=== PATIENT | female | born 1985 | race Caucasian/White ===

== ENCOUNTER 2018-01-05 03:53 | Emergency (ER) | payer SELFPAY ==
--- NOTE | 2018-01-05 04:07 | EDPHYS ---
Physician Documentation [facility] Name: Clementina Hartley Age: 32 yrs Sex: Female : 1985 Arrival Date: 01/05/2018 Time: 03:55 Bed 14 Private MD: ED Physician Jayant Wu HPI: 01/05 04:09 This 32 yrs old Female presents to ER via Unassigned with complaints of Foot gs Pain. 04:09 The patient presents with pain. The complaints affect the right foot. Onset: The gs symptoms/episode began/occurred yesterday. Modifying factors: the symptoms are aggravated by weight bearing, movement. Associated signs and symptoms: Pertinent negatives: calf tenderness, fever, numbness, tingling, warmth, weakness. Severity of symptoms: At their worst the symptoms were severe, in the emergency department the symptoms are unchanged. The patient has not experienced similar symptoms in the past. Historical: - Allergies: 04:11 Iodine; tl2 04:11 Latex, Natural Rubber; tl2 04:11 PENICILLINS; tl2 - Home Meds: 04:11 claritan [Active]; tl2 - PMHx: 04:11 allergies; tl2 - Immunization history:: Adult Immunizations up to date. - Social history:: Smoking status: Patient uses tobacco products, denies chronic smoking, but will smoke occasionally. ROS: 04:16 All other systems are negative. gs Exam: 04:16 Head/Face: Normocephalic, atraumatic. Eyes: Pupils equal round and reactive to light, gs extra-ocular motions intact. Lids and lashes normal. Conjunctiva and sclera are non-icteric and not injected. Cornea within normal limits. Periorbital areas with no swelling, redness, or edema. ENT: Nares patent. No nasal discharge, no septal abnormalities noted. Tympanic membranes are normal and external auditory canals are clear. Oropharynx with no redness, swelling, or masses, exudates, or evidence of obstruction, uvula midline. Mucous membranes moist. Neck: Trachea midline, no thyromegaly or masses palpated, and no cervical lymphadenopathy. Supple, full range of motion without nuchal rigidity, or vertebral point tenderness. No Meningismus. Cardiovascular: Regular rate and rhythm with a normal S1 and S2. No gallops, murmurs, or rubs. Normal PMI, no JVD. No pulse deficits. Respiratory: Lungs have equal breath sounds bilaterally, clear to auscultation and percussion. No rales, rhonchi or wheezes noted. No increased work of breathing, no retractions or nasal flaring. Abdomen/GI: Soft, non-tender, with normal bowel sounds. No distension or tympany. No guarding or rebound. No evidence of tenderness throughout. Skin: Warm, dry with normal turgor. Normal color with no rashes, no lesions, and no evidence of cellulitis. Neuro: Awake and alert, GCS 15, oriented to person, place, time, and situation. Cranial nerves II-XII grossly intact. Motor strength 5/5 in all extremities. Sensory grossly intact. Cerebellar exam normal. Normal gait. 04:16 Constitutional: The patient appears alert, awake. 04:16 Musculoskeletal/extremity: Extremities: noted in the arch of right foot and heel of right foot: tenderness, ROM: no acute changes, Circulation is intact in all extremities. Vital Signs: 04:11 BP 185 / 115; Pulse 114; Resp 18; Temp 97.8; Pulse Ox 99% on R/A; Weight 104.33 kg; tl2 Height 5 ft. 5 in. (165.10 cm); Pain 10/10; 04:11 Body Mass Index 38.27 (104.33 kg, 165.10 cm) tl2 MDM: 04:05 Patient medically screened. gs 04:16 Differential diagnosis: sprain, arthritis, plantar fasciitis. Data reviewed: vital gs signs, nurses notes. Counseling: I had a detailed discussion with the patient and/or guardian regarding: the presence of at least one elevated blood pressure reading (>120/80) during this emergency department visit. Special discussion: I have referred the patient to see his PCP for further evaluation of high blood pressure. Administered Medications: No medications were administered Disposition: 01/05/18 04:06 Discharged to Home. Impression: Plantar fascial fibromatosis. - Condition is Stable. - Discharge Instructions: Plantar Fasciitis, Managing Your High Blood Pressure. - Medication Reconciliation Form, Thank You Letter, Antibiotic Education, Prescription Opioid Use form. - Follow up: Eran Mendez DPM; When: 2 - 3 days; Reason: Re-evaluation by your physician. - Problem is new. - Symptoms are unchanged. Signatures: Heydi Goff RN RN tl2 Jayant Wu MD MD gs Corrections: (The following items were deleted from the chart) 04:29 04:06 01/05/2018 04:06 Discharged to Home. Impression: Plantar fascial fibromatosis. tl2 Condition is Stable. Forms are Medication Reconciliation Form, Thank You Letter, Antibiotic Education, Prescription Opioid Use. Follow up: Eran Mendez; When: 2 - 3 days; Reason: Re-evaluation by your physician. Problem is new. Symptoms are unchanged. gs
--- NOTE | 2018-01-05 04:29 | ER ---
Nurse's Notes [facility] Name: Clementina Hartley Age: 32 yrs Sex: Female : 1985 Arrival Date: 01/05/2018 Time: 03:55 Bed 14 Private MD: Diagnosis: Plantar fascial fibromatosis Presentation: 01/05 04:08 Presenting complaint: Patient states: The bottom of my foot and heel hurt so bad I tl2 can't walk on it. I had surgery on the ligaments in that foot before. Transition of care: patient was not received from another setting of care. Onset of symptoms was January 04, 2018. Initial Sepsis Screen: Does the patient meet any 2 criteria? No. Patient's initial sepsis screen is negative. Does the patient have a suspected source of infection? No. Patient's initial sepsis screen is negative. Care prior to arrival: None. 04:08 Method Of Arrival: Ambulatory tl2 04:08 Acuity: ELI 4 tl2 Triage Assessment: 04:11 General: Appears in no apparent distress. uncomfortable, Behavior is cooperative, tl2 appropriate for age, anxious. Pain: Complains of pain in right foot Pain currently is 10 out of 10 on a pain scale. Aggravated by weight bearing. Neuro: Level of Consciousness is awake, alert, obeys commands, Oriented to person, place, time, situation. Cardiovascular: Denies chest pain. Respiratory: Airway is patent Respiratory effort is even, unlabored, Respiratory pattern is regular, symmetrical. GI: No signs and/or symptoms were reported involving the gastrointestinal system. : No signs and/or symptoms were reported regarding the genitourinary system. Musculoskeletal:. Historical: - Allergies: 04:11 Iodine; tl2 04:11 Latex, Natural Rubber; tl2 04:11 PENICILLINS; tl2 - Home Meds: 04:11 claritan [Active]; tl2 - PMHx: 04:11 allergies; tl2 - Immunization history:: Adult Immunizations up to date. - Social history:: Smoking status: Patient uses tobacco products, denies chronic smoking, but will smoke occasionally. Screenin:14 Abuse screen: Denies threats or abuse. Nutritional screening: No deficits noted. tl2 Tuberculosis screening: No symptoms or risk factors identified. Fall Risk None identified. Assessment: 04:14 General: see triage assessment. tl2 04:27 Reassessment: Pt verbalized understanding of discharge instructions, need for follow tl2 up, and pain relief techniques. Vital Signs: 04:11 BP 185 / 115; Pulse 114; Resp 18; Temp 97.8; Pulse Ox 99% on R/A; Weight 104.33 kg; tl2 Height 5 ft. 5 in. (165.10 cm); Pain 10/10; 04:11 Body Mass Index 38.27 (104.33 kg, 165.10 cm) tl2 ED Course: 03:55 Patient arrived in ED. am2 04:00 Jayant Wu MD is Attending Physician. 04:06 Eran Mendez DPM is Referral Physician. 04:08 Heydi Goff RN is Primary Nurse. tl2 04:09 Triage completed. tl2 04:11 Arm band placed on right wrist. tl2 04:14 Patient has correct armband on for positive identification. Bed in low position. Call tl2 light in reach. 04:14 No provider procedures requiring assistance completed. Patient did not have IV access tl2 during this emergency room visit. Administered Medications: No medications were administered Outcome: 04:06 Discharge ordered by . gs 04:14 Discharged to home ambulatory, with family. tl2 04:14 Condition: stable 04:14 Discharge instructions given to patient, family, Instructed on discharge instructions, follow up and referral plans. medication usage, Demonstrated understanding of instructions, follow-up care, medications. 04:29 Patient left the ED. tl2 Signatures: Heydi Goff RN RN 2 Briana Strauss am2 Jayant Wu MD MD
[2018-01-05 04:33] VITALS: BP 185/115; TEMP 97.8; O2SAT 99
== END 2018-01-05 04:29 | disposition home or self-care (01) ==
LOC: ER 03:53
DX: M72.2 Plantar fascial fibromatosis (principal); D48.3 Neoplasm of uncertain behavior of retroperitoneum
CPT/HCPCS: 99281

== ENCOUNTER 2018-04-25 23:54 | Emergency (ER) | payer SELFPAY ==
[2018-04-26] MEDS ORDERED: HYDROCODONE/APAP 5/325 MG TAB ONE (01:54)
--- NOTE | 2018-04-26 02:38 | ER ---
Nurse's Notes [facility] Name: Clementina Hartley Age: 32 yrs Sex: Female : 1985 Arrival Date: 04/26/2018 Time: 00:01 Bed 18 Private MD: Diagnosis: Nondisplaced fracture of fourth metatarsal bone, right foot;Nondisplaced fracture of fifth metatarsal bone, right foot Presentation: 04/26 00:43 Presenting complaint: Patient states: right heel pain x 2 weeks reports initially fell kl and has had increase in pain and swelling to right foot. Transition of care: patient was not received from another setting of care. Onset of symptoms was April 11, 2018. Risk Assessment: Do you want to hurt yourself or someone else? Patient reports no desire to harm self or others. Initial Sepsis Screen: Does the patient meet any 2 criteria? No. Patient's initial sepsis screen is negative. Care prior to arrival: Medication(s) given: Motrin. 00:43 Method Of Arrival: Ambulatory 00:43 Acuity: ELI 5 kl 00:44 Acuity: ELI 4 kl 01:23 Initial Sepsis Screen: Does the patient have a suspected source of infection? No. bs1 Patient's initial sepsis screen is negative. Triage Assessment: 00:47 General: Appears in no apparent distress. well groomed, well developed, Behavior is kl calm, cooperative. Pain: Complains of pain in right foot. 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 - Social history:: Smoking status: Patient uses tobacco products, smokes one pack cigarettes per day. - Ebola Screening: : Patient negative for fever greater than or equal to 101.5 degrees Fahrenheit, and additional compatible Ebola Virus Disease symptoms. Screenin:23 Abuse screen: Denies threats or abuse. Denies injuries from another. Nutritional bs1 screening: No deficits noted. Tuberculosis screening: No symptoms or risk factors identified. Fall Risk None identified. Assessment: 01:19 General: Appears in no apparent distress. uncomfortable, Behavior is calm, cooperative, bs1 appropriate for age. Pain: Complains of pain in right foot. Neuro: Level of Consciousness is awake, alert, obeys commands, Oriented to person, place, time, situation, Appropriate for age. Cardiovascular: Denies chest pain, shortness of breath, Heart tones S1 S2 present Capillary refill < 3 seconds Patient's skin is warm and dry. Respiratory: Airway is patent Trachea midline Respiratory effort is even, unlabored, Respiratory pattern is regular, symmetrical, Breath sounds are clear bilaterally. GI: No signs and/or symptoms were reported involving the gastrointestinal system. : No signs and/or symptoms were reported regarding the genitourinary system. EENT: No signs and/or symptoms were reported regarding the EENT system. Derm: Skin is intact. Musculoskeletal: Circulation, motion, and sensation intact. Capillary refill < 3 seconds, Range of motion: limited in right foot Swelling present in right foot Reports pain in right foot. 03:00 Reassessment: Patient states understanding of discharge instructions.Crutches and post bs1 op shoe applied. Vital Signs: 00:46 BP 182 / 111; Pulse 78; Resp 18; Temp 97.8(TE); Pulse Ox 99% on R/A; Weight 111.58 kg kl (R); Height 5 ft. 5 in. (165.10 cm); Pain 8/10; 01:20 BP 156 / 92; Pulse 86; Resp 16; Pulse Ox 100% on R/A; bs1 02:30 BP 148 / 72; Pulse 76; Resp 16; Temp 98; Pulse Ox 100% on R/A; Pain 0/10; bs1 00:46 Body Mass Index 40.94 (111.58 kg, 165.10 cm) ED Course: 00:01 Patient arrived in ED. am2 00:44 Triage completed. kl 01:15 Karlie Infante, HERMELINDO is Primary Nurse. bs1 01:16 Matthew Mo NP is PHCP. pm1 01:16 Jayant Wu MD is Attending Physician. pm1 01:23 Arm band placed on left wrist. bs1 01:23 Patient has correct armband on for positive identification. Bed in low position. Call bs1 light in reach. Side rails up X 1. Pulse ox on. NIBP on. 02:05 X-ray completed. Portable x-ray completed in exam room. Patient tolerated procedure kw well. 02:06 Foot Right 3 View XRAY In Process Unspecified. EDMS 02:07 Ankle Right 3 View XRAY In Process Unspecified. EDMS 02:36 Agustin Allison MD is Referral Physician. pm1 03:06 No provider procedures requiring assistance completed. Patient did not have IV access bs1 during this emergency room visit. Administered Medications: 01:53 Drug: [place] 5 mg-325 mg 1 tabs Route: PO; bs1 03:05 Follow up: Response: No adverse reaction bs1 Outcome: 02:37 Discharge ordered by . pm1 03:06 Discharged to home ambulatory. bs1 03:06 Condition: stable 03:06 Discharge instructions given to patient, Instructed on discharge instructions, follow up and referral plans. medication usage, Demonstrated understanding of instructions, follow-up care, medications, Prescriptions given X 1. 03:08 Patient left the ED. bs1 Signatures: Dispatcher [employer] Jossie Andrews, RN RN Kathy Figueroa Patrick, NURYS PERSONAL CARE ASSISTANT pm1 Briana Strauss am2 Karlie Infante, RN RN bs1
--- NOTE | 2018-04-26 02:38 | EDPHYS ---
Physician Documentation [facility] Name: Clementina Hartley Age: 32 yrs Sex: Female : 1985 Arrival Date: 04/26/2018 Time: 00:01 Bed 18 Private MD: ED Physician Jayant Wu HPI: 04/26 02:39 This 32 yrs old Female presents to ER via Ambulatory with complaints of Right pm1 Foot Pain. 02:39 The patient presents with pain, swelling. The complaints affect the lateral aspect of pm1 right foot. Context: The problem was sustained at home, resulted from inversion of right foot, the patient is not able to bear weight, Problem is a result from a previous injury: No. Onset: The symptoms/episode began/occurred 2 week(s) ago. Modifying factors: The symptoms are alleviated by nothing. the symptoms are aggravated by weight bearing. Treatment prior to arrival includes: no previous treatment. Severity of symptoms: in the emergency department the symptoms are actually worse. The patient has not experienced similar symptoms in the past. The patient has not recently seen a physician. Patient inverted right foot about 2 weeks ago. Pain improved but today patient started experiencing more pain in the lateral aspect of her right foot with some swelling. Patient reports inability to apply weight to right foot without pain. 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 - Social history:: Smoking status: Patient uses tobacco products, smokes one pack cigarettes per day. - Ebola Screening: : Patient negative for fever greater than or equal to 101.5 degrees Fahrenheit, and additional compatible Ebola Virus Disease symptoms. ROS: 02:39 Constitutional: Negative for fever, chills, and weight loss, Eyes: Negative for injury, pm1 pain, redness, and discharge, ENT: Negative for injury, pain, and discharge, Neck: Negative for injury, pain, and swelling, Cardiovascular: Negative for chest pain, palpitations, and edema, Respiratory: Negative for shortness of breath, cough, wheezing, and pleuritic chest pain, Abdomen/GI: Negative for abdominal pain, nausea, vomiting, diarrhea, and constipation, Back: Negative for injury and pain. 02:39 Skin: Negative for injury, rash, and discoloration, Neuro: Negative for headache, weakness, numbness, tingling, and seizure. 02:39 MS/extremity: Positive for pain, swelling, of the lateral aspect of right foot, Negative for decreased range of motion. Exam: 02:39 Constitutional: This is a well developed, well nourished patient who is awake, alert, pm1 and in no acute distress. Head/Face: Normocephalic, atraumatic. Eyes: Pupils equal round and reactive to light, extra-ocular motions intact. Lids and lashes normal. Conjunctiva and sclera are non-icteric and not injected. Cornea within normal limits. Periorbital areas with no swelling, redness, or edema. ENT: Nares patent. No nasal discharge, no septal abnormalities noted. Tympanic membranes are normal and external auditory canals are clear. Oropharynx with no redness, swelling, or masses, exudates, or evidence of obstruction, uvula midline. Mucous membranes moist. Neck: Trachea midline, no thyromegaly or masses palpated, and no cervical lymphadenopathy. Supple, full range of motion without nuchal rigidity, or vertebral point tenderness. No Meningismus. Chest/axilla: Normal chest wall appearance and motion. Nontender with no deformity. No lesions are appreciated. Cardiovascular: Regular rate and rhythm with a normal S1 and S2. No gallops, murmurs, or rubs. Normal PMI, no JVD. No pulse deficits. Respiratory: Lungs have equal breath sounds bilaterally, clear to auscultation and percussion. No rales, rhonchi or wheezes noted. No increased work of breathing, no retractions or nasal flaring. Abdomen/GI: Soft, non-tender, with normal bowel sounds. No distension or tympany. No guarding or rebound. No evidence of tenderness throughout. Back: No spinal tenderness. No costovertebral tenderness. Full range of motion. Skin: Warm, dry with normal turgor. Normal color with no rashes, no lesions, and no evidence of cellulitis. 02:39 Musculoskeletal/extremity: Extremities: grossly normal except: noted in the lateral aspect of right foot: swelling, tenderness. 02:39 Neuro: Orientation: is normal, Motor: moves all fours. Vital Signs: 00:46 BP 182 / 111; Pulse 78; Resp 18; Temp 97.8(TE); Pulse Ox 99% on R/A; Weight 111.58 kg kl (R); Height 5 ft. 5 in. (165.10 cm); Pain 8/10; 01:20 BP 156 / 92; Pulse 86; Resp 16; Pulse Ox 100% on R/A; bs1 02:30 BP 148 / 72; Pulse 76; Resp 16; Temp 98; Pulse Ox 100% on R/A; Pain 0/10; bs1 00:46 Body Mass Index 40.94 (111.58 kg, 165.10 cm) kl MDM: 01:16 Patient medically screened. pm1 02:36 Data reviewed: vital signs. Data interpreted: Pulse oximetry: on room air is 100 %. pm1 Interpretation: normal. Counseling: I had a detailed discussion with the patient and/or guardian regarding: the historical points, exam findings, and any diagnostic results supporting the discharge/admit diagnosis, radiology results, the need for outpatient follow up, to return to the emergency department if symptoms worsen or persist or if there are any questions or concerns that arise at home. 04/26 01:46 Order name: Foot Right 3 View XRAY pm1 04/26 01:46 Order name: Ankle Right 3 View XRAY pm1 04/26 02:38 Order name: Post-op Orthopedic Shoe; Complete Time: 03:05 pm1 04/26 02:38 Order name: Crutches; Complete Time: 03:05 pm1 Administered Medications: 01:53 Drug: [place] 5 mg-325 mg 1 tabs Route: PO; bs1 03:05 Follow up: Response: No adverse reaction bs1 Disposition: 04/26/18 02:37 Discharged to Home. Impression: Nondisplaced fracture of fifth metatarsal bone, right foot, Nondisplaced fracture of fourth metatarsal bone, right foot. - Condition is Stable. - Discharge Instructions: Metatarsal Fracture, Crutch Use, [id number]. - Prescriptions for Tylenol- Codeine #3 300-30 mg Oral Tablet - take 2 tablets by ORAL route every 6 hours As needed; 20 tablet. - Medication Reconciliation Form, Thank You Letter, Prescription Opioid Use form. - Follow up: Emergency Department; When: As needed; Reason: Worsening of condition. Follow up: Agustin Allison MD; When: 2 - 3 days; Reason: Recheck today's complaints, Continuance of care, Re-evaluation by your physician. - Problem is new. - Symptoms have improved. Addendum: 04/30/2018 17:38 Co-signature as Attending Physician, Jayant Wu MD. g s Signatures: Dispatcher [employer] EDMS Jossie Wagoner RN RN Matthew Gerber, RAILROAD CAR CLEANER RAILROAD CAR CLEANER pm1 Jayant Wu MD MD gs Salazar, Brittany RN RN bs1 Corrections: (The following items were deleted from the chart) 04/26 03:08 02:37 04/26/2018 02:37 Discharged to Home. Impression: Nondisplaced fracture of fifth bs1 metatarsal bone, right footNondisplaced fracture of fourth metatarsal bone, right foot. Condition is Stable. Forms are Medication Reconciliation Form, Thank You Letter, Antibiotic Education, Prescription Opioid Use. Follow up: Emergency Department; When: As needed; Reason: Worsening of condition. Follow up: Agustin Allison; When: 2 - 3 days; Reason: Recheck today's complaints, Continuance of care, Re-evaluation by your physician. Problem is new. Symptoms have improved. pm1
[2018-04-26 03:13] VITALS: O2SAT 100
[2018-04-26 03:14] VITALS: BP 148/72; TEMP 98
--- NOTE | 2018-04-26 09:19 | RAD REPORT ---
EXAM DESCRIPTION: RAD - Foot Right 3 View - 04/26/2018 2:08 am CLINICAL HISTORY: Pain;Swelling COMPARISON: No comparisons FINDINGS: Large posterior and plantar calcaneal spurs are seen. No acute fracture or subluxation is present.
--- NOTE | 2018-04-26 09:20 | RAD REPORT ---
EXAM DESCRIPTION: RAD - Ankle Right 3 View - 04/26/2018 2:10 am CLINICAL HISTORY: Pain;Swelling COMPARISON: Ankle Left 3 View dated 01/15/2012 FINDINGS: Mild to moderate soft tissue swelling is seen about the ankle. Left posterior and plantar calcaneal spurs seen. No acute fracture demonstrated.
== END 2018-04-26 03:08 | disposition home or self-care (01) ==
LOC: ER 23:54
DX: S92.354A Nondisplaced fracture of fifth metatarsal bone, right foot, initial encounter for closed fracture (principal); S92.344A Nondisplaced fracture of fourth metatarsal bone, right foot, initial encounter for closed fracture; X58.XXXA Exposure to other specified factors, initial encounter; Y93.9 Activity, unspecified; Y92.009 Unspecified place in unspecified non-institutional (private) residence as the place of occurrence of the external cause; Z88.0 Allergy status to penicillin; Z91.040 Latex allergy status; Z91.048 Other nonmedicinal substance allergy status
CPT/HCPCS: 99284

== ENCOUNTER 2018-05-28 17:23 | Emergency (ER) | payer SELFPAY ==
--- NOTE | 2018-05-28 18:28 | EDPHYS ---
Physician Documentation [facility] Name: Clementina Hartley Age: 32 yrs Sex: Female : 1985 Arrival Date: 05/28/2018 Time: 17:26 Bed 9 Private MD: None, None ED Physician Jayant Wu HPI: 05/28 18:22 This 32 yrs old Female presents to ER via Ambulatory with complaints of Foot gs Injury. 18:22 The patient presents with pain. The complaints affect the right foot. Onset: The gs symptoms/episode began/occurred 1 month(s) ago. says was here a month ago told had fx of foot. review of xrays by rads showed no acute fracture, still with pain requesting pain meds.. 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 - Social history:: Smoking status: Patient/guardian denies using tobacco. - Ebola Screening: : No symptoms or risks identified at this time. ROS: 18:22 All other systems are negative. gs Exam: 18:22 Head/Face: Normocephalic, atraumatic. Cardiovascular: Regular rate and rhythm with a gs normal S1 and S2. No gallops, murmurs, or rubs. Normal PMI, no JVD. No pulse deficits. Abdomen/GI: Soft, non-tender, with normal bowel sounds. No distension or tympany. No guarding or rebound. No evidence of tenderness throughout. Skin: Warm, dry with normal turgor. Normal color with no rashes, no lesions, and no evidence of cellulitis. Neuro: Awake and alert, GCS 15, oriented to person, place, time, and situation. Cranial nerves II-XII grossly intact. Motor strength 5/5 in all extremities. Sensory grossly intact. Cerebellar exam normal. Normal gait. 18:22 Constitutional: The patient appears alert, awake. 18:22 Musculoskeletal/extremity: Extremities: noted in the lateral side of right foot: tenderness, Pulses: are normal with no appreciated deficits, Sensation intact. Vital Signs: 17:45 BP 132 / 98; Pulse 94; Resp 18 S; Temp 98.2(TE); Pulse Ox 97% on R/A; Weight 113.4 kg aa5 (R); Height 5 ft. 5 in. (165.10 cm) (R); Pain 9/10; 17:45 Body Mass Index 41.60 (113.40 kg, 165.10 cm) aa5 MDM: 18:16 Patient medically screened. gs 18:22 Differential diagnosis: sprain, stress fracture. Data reviewed: vital signs, nurses gs notes. Counseling: I had a detailed discussion with the patient and/or guardian regarding: notified of xray results from last visit need for ortho visit and i would not give her anymore tylenol with codeine. Administered Medications: No medications were administered Disposition: 05/28/18 18:28 Discharged to Home. Impression: Encounter for screening, unspecified. - Condition is Stable. - Medication Reconciliation Form, Thank You Letter, Antibiotic Education, Prescription Opioid Use form. - Follow up: Private Physician; When: 2 - 3 days; Reason: Re-evaluation by your physician. Signatures: Briana Milan RN RN Ny García RN RN aa5 Jayant Wu MD MD Corrections: (The following items were deleted from the chart) 18:28 18:28 05/28/2018 18:28 Discharged to Home. Impression: Encounter for screening, aj unspecified. Condition is Stable. Forms are Medication Reconciliation Form, Thank You Letter, Antibiotic Education, Prescription Opioid Use. Follow up: Private Physician; When: 2 - 3 days; Reason: Re-evaluation by your physician. gs
--- NOTE | 2018-05-28 18:28 | ER ---
Nurse's Notes [facility] Name: Clementina Hartley Age: 32 yrs Sex: Female : 1985 Arrival Date: 05/28/2018 Time: 17:26 Bed 9 Private MD: None, None Diagnosis: Encounter for screening, unspecified Presentation: 05/28 17:43 Presenting complaint: Patient states: "I broke my foot about 2 weeks ago and the pain aa5 is getting worse but I am out of the pain medicine and I can't see the orthopedic doctor until 2 weeks from now". Ambulatory with crutches. Transition of care: patient was not received from another setting of care. Onset of symptoms was May 2018. Risk Assessment: Do you want to hurt yourself or someone else? Patient reports no desire to harm self or others. Initial Sepsis Screen: Does the patient meet any 2 criteria? No. Patient's initial sepsis screen is negative. Does the patient have a suspected source of infection? No. Patient's initial sepsis screen is negative. Care prior to arrival: None. 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 - Social history:: Smoking status: Patient/guardian denies using tobacco. - Ebola Screening: : No symptoms or risks identified at this time. Screenin:08 Abuse screen: Denies threats or abuse. Denies injuries from another. Nutritional aj screening: No deficits noted. Tuberculosis screening: No symptoms or risk factors identified. Fall Risk None identified. Assessment: 18:08 General: Appears in no apparent distress. distressed, Behavior is calm, cooperative, aj appropriate for age. Pain: Pain: Complains of pain in dorsum of right foot. 18:08 Neuro: Level of Consciousness is awake, alert, obeys commands, Oriented to person, aj place, time, situation, Appropriate for age. Respiratory: Airway is patent Respiratory effort is even, unlabored, Respiratory pattern is regular, symmetrical. Derm: Skin is intact, is healthy with good turgor, Skin is pink, warm \\T\\ dry. normal. Musculoskeletal: Reports pain in dorsum of right foot. Vital Signs: 17:45 BP 132 / 98; Pulse 94; Resp 18 S; Temp 98.2(TE); Pulse Ox 97% on R/A; Weight 113.4 kg aa5 (R); Height 5 ft. 5 in. (165.10 cm) (R); Pain 9/10; 17:45 Body Mass Index 41.60 (113.40 kg, 165.10 cm) aa5 ED Course: 17:26 Patient arrived in ED. mr 17:26 None, None is Private Physician. mr 17:45 Triage completed. aa 17:45 Arm band placed on. aa 18:02 Jayant Wu MD is Attending Physician. 18:07 Briana Milan RN is Primary Nurse. aj 18:08 Patient has correct armband on for positive identification. aj 18:08 No provider procedures requiring assistance completed. Patient did not have IV access aj during this emergency room visit. Administered Medications: No medications were administered Outcome: 18:28 Discharge ordered by . 18:28 Medical screen evaluation completed per provider. Patient declined treatment. aj 18:28 Condition: good 18:28 Following a medical screening exam, the patient was provided information regarding alternative care sites and resources available per registration personnel. 18:28 Patient left the ED. aj Signatures: Briana Milan, Guillermina Chatman RN SandersNy RN RN [facility] Jayant Wu MD MD Corrections: (The following items were deleted from the chart) 18:18 18:08 Pain: aj aj
[2018-05-28 19:21] VITALS: BP 132/98; TEMP 98.2; O2SAT 97
== END 2018-05-28 18:28 | disposition home or self-care (01) ==
LOC: ER 17:23
DX: M79.671 Pain in right foot (principal); Z13.9 Encounter for screening, unspecified; Z88.0 Allergy status to penicillin; Z91.040 Latex allergy status
CPT/HCPCS: 99281

== ENCOUNTER 2019-03-19 18:11 | Emergency (ER) | payer SELFPAY ==
--- OUTSIDE RECORDS SUMMARY | 2019-03-19 18:13 | XMS REPORT ---
:1985 [facility] [address] [place] [address] Care Team Providers Name Role Phone Unavailable Unavailable Unavailable Problems This patient has no known problems. Allergies, Adverse Reactions, Alerts This patient has no known allergies or adverse reactions. Medications This patient has no known medications.
--- NOTE | 2019-03-19 19:05 | EDPHYS ---
Physician Documentation [facility] Name: Clementina Hartley Age: 33 yrs Sex: Female : 1985 Arrival Date: 03/19/2019 Time: 18:14 Bed 28 Private MD: ED Physician Levi Weaver HPI: 03/19 19:00 This 33 yrs old Female presents to ER via Ambulatory with complaints of desi Abscess. 19:00 The patient presents with cellulitis of the right lower quadrant, the patient presents desi with a swollen area of the right lower quadrant. Description: The affected area is small, confluent, erythematous, warm. Onset: The symptoms/episode began/occurred 1 week(s) ago. Associated signs and symptoms: The patient has no apparent associated signs or symptoms. Severity of symptoms: At their worst the symptoms were mild, in the emergency department the symptoms are unchanged. The patient has not experienced similar symptoms in the past. 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 - Social history:: Smoking status: unknown. - Ebola Screening: : No symptoms or risks identified at this time. ROS: 19:00 Constitutional: Negative for fever, chills, and weight loss, Eyes: Negative for injury, desi pain, redness, and discharge, ENT: Negative for injury, pain, and discharge, Neck: Negative for injury, pain, and swelling, Cardiovascular: Negative for chest pain, palpitations, and edema, Respiratory: Negative for shortness of breath, cough, wheezing, and pleuritic chest pain, Abdomen/GI: Negative for abdominal pain, nausea, vomiting, diarrhea, and constipation, Back: Negative for injury and pain, : Negative for injury, bleeding, discharge, and swelling, MS/Extremity: Negative for injury and deformity, Neuro: Negative for headache, weakness, numbness, tingling, and seizure, Psych: Negative for depression, anxiety, suicide ideation, homicidal ideation, and hallucinations, Allergy/Immunology: Negative for hives, rash, and allergies, Endocrine: Negative for neck swelling, polydipsia, polyuria, polyphagia, and marked weight changes, Hematologic/Lymphatic: Negative for swollen nodes, abnormal bleeding, and unusual bruising. 19:00 Skin: Positive for erythema, swelling. Exam: 19:00 Constitutional: This is a well developed, well nourished patient who is awake, alert, desi and in no acute distress. Head/Face: Normocephalic, atraumatic. Eyes: Pupils equal round and reactive to light, extra-ocular motions intact. Lids and lashes normal. Conjunctiva and sclera are non-icteric and not injected. Cornea within normal limits. Periorbital areas with no swelling, redness, or edema. ENT: Nares patent. No nasal discharge, no septal abnormalities noted. Tympanic membranes are normal and external auditory canals are clear. Oropharynx with no redness, swelling, or masses, exudates, or evidence of obstruction, uvula midline. Mucous membranes moist. Neck: Trachea midline, no thyromegaly or masses palpated, and no cervical lymphadenopathy. Supple, full range of motion without nuchal rigidity, or vertebral point tenderness. No Meningismus. Chest/axilla: Normal chest wall appearance and motion. Nontender with no deformity. No lesions are appreciated. Cardiovascular: Regular rate and rhythm with a normal S1 and S2. No gallops, murmurs, or rubs. Normal PMI, no JVD. No pulse deficits. Respiratory: Lungs have equal breath sounds bilaterally, clear to auscultation and percussion. No rales, rhonchi or wheezes noted. No increased work of breathing, no retractions or nasal flaring. Abdomen/GI: Soft, non-tender, with normal bowel sounds. No distension or tympany. No guarding or rebound. No evidence of tenderness throughout. Back: No spinal tenderness. No costovertebral tenderness. Full range of motion. Skin: Warm, dry with normal turgor. Normal color with no rashes, no lesions, and no evidence of cellulitis. MS/ Extremity: Pulses equal, no cyanosis. Neurovascular intact. Full, normal range of motion. Neuro: Awake and alert, GCS 15, oriented to person, place, time, and situation. Cranial nerves II-XII grossly intact. Motor strength 5/5 in all extremities. Sensory grossly intact. Cerebellar exam normal. Normal gait. Psych: Awake, alert, with orientation to person, place and time. Behavior, mood, and affect are within normal limits. Vital Signs: 18:18 BP 120 / 79; Pulse 99; Resp 18; Temp 97.5(TE); Pulse Ox 98% on R/A; Weight 117.93 kg; hj Height 5 ft. 5 in. (165.10 cm); Pain 9/10; 19:15 BP 115 / 78; Pulse 90; Resp 18; Temp 98.5; Pulse Ox 100% on R/A; mg2 18:18 Body Mass Index 43.26 (117.93 kg, 165.10 cm) MDM: 18:33 Patient medically screened. [facility] 19:03 Data reviewed: vital signs, nurses notes, lab test result(s). [facility] 03/19 18:59 Order name: Urine Culture [facility] 03/19 19:14 Order name: Urine Dipstick--Ancillary (enter results) [facility] 03/19 19:14 Order name: Urine --Ancillary (enter results) [facility] 03/19 18:59 Order name: Urine Dipstick-Ancillary (obtain specimen); Complete Time: 19:04 [facility] 03/19 18:59 Order name: Urine Test (obtain specimen); Complete Time: 19:04 [facility] Administered Medications: 19:10 Drug: Bactrim (160 mg-800 mg (DS) 1 tablet Route: PO; mg2 19:35 Follow up: Response: No adverse reaction; Medication administered at discharge. mg2 19:10 Drug: Doxycycline 200 mg Route: PO; mg2 19:35 Follow up: Response: No adverse reaction; Medication administered at discharge. mg2 19:10 Drug: Silvadene Cream 1 % 1 application Route: Topical; Site: abdomen; mg2 19:35 Follow up: Response: No adverse reaction; Marked relief of symptoms mg2 Disposition: 03/19/19 19:04 Discharged to Home. Impression: Cellulitis and acute lymphangitis of other sites, Cutaneous abscess of abdominal wall. - Condition is Stable. - Discharge Instructions: Skin Abscess, Cellulitis, Adult, Skin Abscess, [id number], Cellulitis, Adult, [id number]. - Prescriptions for Doxycycline Hyclate 100 mg Oral Tablet - take 1 tablet by ORAL route every 12 hours; 20 tablet. Silvadene 1 % Topical Cream - Apply to affected area 1 application by TOPICAL route 3 times per day; 50 gram. Bactrim DS 800- 160 mg Oral Tablet - take 1 tablet by ORAL route every 12 hours for 10 days; 20 tablet. - Medication Reconciliation Form, Thank You Letter, Antibiotic Education, Prescription Opioid Use form. - Follow up: Private Physician; When: 2 - 3 days; Reason: Recheck today's complaints, Continuance of care, Re-evaluation by your physician. Follow up: Lobito Gonzalez MD; When: 2 - 3 days; Reason: Recheck today's complaints, Re-evaluation by your physician. - Problem is new. - Symptoms have improved. Signatures: Dispatcher [employer] EDMS Levi Weaver MD MD cha Joaquin, Henry, RN RN Shaheed Caban RN RN mg2 Corrections: (The following items were deleted from the chart) 19:39 19:04 03/19/2019 19:04 Discharged to Home. Impression: Cellulitis and acute mg2 lymphangitis of other sites; Cutaneous abscess of abdominal wall. Condition is Stable. Forms are Medication Reconciliation Form, Thank You Letter, Antibiotic Education, Prescription Opioid Use. Follow up: Private Physician; When: 2 - 3 days; Reason: Recheck today's complaints, Continuance of care, Re-evaluation by your physician. Follow up: Lobito Gonzalez; When: 2 - 3 days; Reason: Recheck today's complaints, Re-evaluation by your physician. Problem is new. Symptoms have improved. desi
--- NOTE | 2019-03-19 19:05 | ER ---
Nurse's Notes [facility] Name: Clementina Hartley Age: 33 yrs Sex: Female : 1985 Arrival Date: 03/19/2019 Time: 18:14 Bed 28 Private MD: Diagnosis: Cellulitis and acute lymphangitis of other sites;Cutaneous abscess of abdominal wall Presentation: 03/19 18:16 Presenting complaint: Patient states: i have a boil on my R lower abd, it started last week, last Monday, it started oozing and its getting bigger; reports fever and chills;. Transition of care: patient was not received from another setting of care. Onset of symptoms was March 19, 2019. Risk Assessment: Do you want to hurt yourself or someone else? Patient reports no desire to harm self or others. Initial Sepsis Screen: Does the patient meet any 2 criteria? No. Patient's initial sepsis screen is negative. Does the patient have a suspected source of infection? No. Patient's initial sepsis screen is negative. Care prior to arrival: None. 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 - Social history:: Smoking status: unknown. - Ebola Screening: : No symptoms or risks identified at this time. Screenin:36 Abuse screen: Denies threats or abuse. Denies injuries from another. Nutritional mg2 screening: No deficits noted. Tuberculosis screening: No symptoms or risk factors identified. Fall Risk None identified. Assessment: 18:36 General: Appears in no apparent distress. comfortable, Behavior is calm, cooperative. mg2 Pain: Complains of pain in abdomen Pain does not radiate. Pain currently is 3 out of 10 on a pain scale. Quality of pain is described as aching, Pain began gradually, Is intermittent. Neuro: Level of Consciousness is awake, alert, obeys commands, Oriented to person, place, time, situation. Cardiovascular: Capillary refill < 3 seconds Patient's skin is warm and dry. Respiratory: Airway is patent Respiratory effort is even, unlabored, Respiratory pattern is regular, symmetrical. GI: No signs and/or symptoms were reported involving the gastrointestinal system. : No signs and/or symptoms were reported regarding the genitourinary system. EENT: No signs and/or symptoms were reported regarding the EENT system. Derm: Abscess located on abdomen is quarter sized, is red. Musculoskeletal: Circulation, motion, and sensation intact. Capillary refill < 3 seconds. Vital Signs: 18:18 BP 120 / 79; Pulse 99; Resp 18; Temp 97.5(TE); Pulse Ox 98% on R/A; Weight 117.93 kg; hj Height 5 ft. 5 in. (165.10 cm); Pain 9/10; 19:15 BP 115 / 78; Pulse 90; Resp 18; Temp 98.5; Pulse Ox 100% on R/A; mg2 18:18 Body Mass Index 43.26 (117.93 kg, 165.10 cm) ED Course: 18:14 Patient arrived in ED. as 18:17 Triage completed. hj 18:18 Arm band placed on right wrist. hj 18:33 Shaheed Caban, HERMELINDO is Primary Nurse. mg2 18:33 Levi Weaver MD is Attending Physician. desi 18:39 Patient has correct armband on for positive identification. Door closed. Warm blanket mg2 given. 19:03 Lobito Gonzalez MD is Referral Physician. desi 19:36 No provider procedures requiring assistance completed. Patient did not have IV access mg2 during this emergency room visit. Wound care: to open wound/abscess located on right lower quadrant was cleaned with with chlorhexidine, dressed with 4X4s, silvadene, Patient tolerated well. Administered Medications: 19:10 Drug: Bactrim (160 mg-800 mg (DS) 1 tablet Route: PO; mg2 19:35 Follow up: Response: No adverse reaction; Medication administered at discharge. mg2 19:10 Drug: Doxycycline 200 mg Route: PO; mg2 19:35 Follow up: Response: No adverse reaction; Medication administered at discharge. mg2 19:10 Drug: Silvadene Cream 1 % 1 application Route: Topical; Site: abdomen; mg2 19:35 Follow up: Response: No adverse reaction; Marked relief of symptoms mg2 Outcome: 19:04 Discharge ordered by . desi 19:37 Discharged to home ambulatory, with friend. mg2 19:37 Condition: stable 19:37 Discharge instructions given to patient, Instructed on discharge instructions, follow up and referral plans. medication usage, wound care, Demonstrated understanding of instructions, follow-up care, medications, wound care, Prescriptions given X 3. 19:39 Patient left the ED. mg2 Signatures: Levi Weaver MD MD cha Martinez, Amelia as Joaquin, Henry, RN RN Shaheed Caban RN RN mg2 Corrections: (The following items were deleted from the chart) 18:19 18:18 Pulse 99bpm; Resp 18bpm; Pulse Ox 98% RA; Temp 97.5F Temporal; 117.93 kg; Height hj 5 ft. 5 in.; BMI: 43.2; Pain 9/10; hj
[2019-03-19] MEDS ORDERED: SMZ./TMP. 800/160 MG TABLET ONE (19:23)
[2019-03-19] MEDS ORDERED: SILVER SULFADIAZINE 1% 25 GM TOP ONE (19:23)
[2019-03-19] MEDS ORDERED: DOXYCYCLINE 100 MG CAP PO ONE (19:23)
[2019-03-19 20:09] LABS: Urine Blood NEGATIVE (NEG); Urine Glucose 2+ (NEG); Urine Protein NEGATIVE (NEG)
[2019-03-19 20:28] VITALS: BP 115/78; TEMP 98.5; O2SAT 100
== END 2019-03-19 19:39 | disposition home or self-care (01) ==
LOC: ER 18:11
DX: L03.311 Cellulitis of abdominal wall (principal); I89.1 Lymphangitis; L02.211 Cutaneous abscess of abdominal wall; Z88.0 Allergy status to penicillin; Z88.8 Allergy status to other drugs, medicaments and biological substances; Z91.040 Latex allergy status
CPT/HCPCS: 81003; 81025; 87086; 87088; 99283

== ENCOUNTER 2020-05-31 20:10 | Emergency (ER) | payer OTHER, SELFPAY ==
--- OUTSIDE RECORDS SUMMARY | 2020-05-31 20:12 | XMS REPORT | Summary of Care ---
:1985 Author Organization [facility] - [facility] Address [address] [place] [id number] Care Team Providers Name Role Phone Pcp, Does Not Have A Primary Care Provider Reason for Referral Radiology Services (STAT) Status Reason Specialty Diagnoses / Referred By Referred To Procedures Contact Contact New Request Diagnostic Diagnoses Acute right ankle pain Foot pain, right Yarima, Geraldinekili Radiology Procedures XR FOOT <3 VW RIGHT MD Kelsy [address] [address] Radiology Services (STAT) Status Reason Specialty Diagnoses / Referred By Referred To Procedures Contact Contact New Request Diagnostic Diagnoses Acute right ankle pain Foot pain, right Yarima, Wakili Radiology Procedures XR ANKLE 3+ VW RIGHT MD Kelsy [address] [address] Reason for Visit Reason Comments Ankle Pain right Foot Pain Auth/Cert Status Reason Specialty Diagnoses / Referred By Referred To Procedures Contact Contact Emergency Medicine [facility] [address] [place] [address] Fax: Encounter Details Date Type Department Care Team Description 03/31/2020 Emergency ADC-Emergency Yarima, Wakili S, Acute rig ht ankle pain (Primary Dx); Department Foot pain, right; [address] [place] [address] Dr arredondo 301 [facility] Sprain of right ankle, unspe cified ligament, initial encounter; [place] [address] [id number] Foot sprain, right, initial encounter; [phone] [place], [place] Elevated blood pressure reading [id number] [phone] Allergies Active Allergy Reactions Severity Noted Date Comments Iodine Anaphylaxis 06/03/2015 Latex Hives 06/03/2015 Penicillins Anaphylaxis 06/03/2015 documented as of this encounter (statuses as of 03/31/2020) Medications Medication Sig Dispensed Refills Start Date End Date Status methylPREDNISolone Take by mouth 21 Each 0 10/02/2018 Active (MEDROL, WALESKA,) 4 mg SEE-INSTRUCTIONS tabletsIndications: . follow package Herpes zoster without directions complication acetaminophen-codeine Take 1 tablet by 20 tablet 0 10/02/2018 Active (TYLENOL-CODEINE #3) mouth every 4 300-30 mg (four) hours as tabletIndications: needed for Pain Herpes zoster without (scale 7-10). complication benzonatate 100 mg Take 1 capsule 20 capsule 0 10/27/2019 Active capsuleIndications: by mouth 3 Cough (three) times daily as needed for Cough. traMADol (ULTRAM) 50 mg Take 1 tablet by 20 tablet 0 0 Active tabletIndications: acute mouth every 6 pain (six) hours as needed for Pain (scale 7-10). Indications: acute pain documented as of this encounter (statuses as of 03/31/2020) Active Problems Problem Noted Date Right knee pain 11/23/2015 Abscess of left thigh 06/03/2015 documented as of this encounter (statuses as of 03/31/2020) Social History Tobacco Use Types Packs/Day Years Used Date Current Every Day Smoker 0.25 Smokeless Tobacco: Never Used Alcohol Use Drinks/Week oz/Week Comments Yes Sex Assigned at Date Recorded Not on file Job Start Date Occupation Industry Not on file Not on file Not on file Travel History Travel Start Travel End No recent travel history available. COVID-19 Exposure Response Date Recorded In the last month, have you been in contact with No / Unsure 03/31/2020 5:26 AM CDT someone who was confirmed or suspected to have Coronavirus / COVID-19? documented as of this encounter Last Filed Vital Signs Vital Sign Reading Time Taken Comments Blood Pressure 153/106 03/31/2020 5:28 AM CDT Pulse 110 03/31/2020 5:28 AM CDT Temperature 37.1 C (98.8 F) 03/31/2020 5:28 AM CDT Respiratory Rate 16 03/31/2020 5:28 AM CDT Oxygen Saturation 98% 03/31/2020 5:28 AM CDT Inhaled Oxygen Concentration - - Weight 112.9 kg (249 lb) 03/31/2020 5:28 AM CDT Height 167.6 cm (5' 6") 03/31/2020 5:28 AM CDT Body Mass Index 40.19 03/31/2020 5:28 AM CDT documented in this encounter Discharge Instructions Teofilo Adler MD - 03/31/2020 DIAGNOSIS Diagnoses that have been ruled out: None Diagnoses that are still under consideration: None Final diagnoses: Acute right ankle pain Foot pain, right Sprain of right ankle, unspecified ligament, initial encounter Foot sprain, right, initial encounter NO LIFE-THREATENING FINDINGS ON TODAY'S EXAM. PROCEDURES IN THE ER TODAY: Orders Placed This Encounter Procedures XR ANKLE 3+ VW RIGHT XR FOOT <3 VW RIGHT MEDICATIONS ADMINISTERED IN THE ER TODAY AND DISCHARGE MEDICATIONS: No orders of the defined types were placed in this encounter. FOLLOW-UP RECOMMENDATIONS: RECOMMEND FOLLOW-UP WITH YOUR PRIMARY CARE PROVIDER OR WITH DR Moon, ORTH[employer]ACHINE [employer]EDER IN 2-5 DAYS, ESPECIALLY IF NO IMPROVEMENT IN SYMPTOMS. MAY FOLLOW-UP WITH A PROVIDER OF YOUR CHOICE, SUCH : 1. A PHYSICIAN OF YOUR CHOICE 2. [facility], . LOCATIONS IN [facility] 3. [facility], [address] [place] [address]; [phone] OR, IF YOU WISH TO FOLLOW-UP WITHIN THE [facility], MAY TRY THESE OPTIONS (CLINIC APPOINTMENTS AVAILABLE ON YYRV-IE-TPHA BASIS): 1. SCHEDULE AN APPOINTMENT ONLINE AT WWW[facility] 2. OR CALL THE [facility] ACCESS [facility] AT OR 3. OR CALL YOUR [facility] PHYSICIAN'S OFFICE DIRECTLY IF YOU ARE ALREADY AN ESTABLISHED [facility] PATIENT. RETURN TO ER FOR WORSENING OF SYMPTOMS MONITOR AND RECORD YOUR BLOOD PRESSURES FOR YOUR NEXT DOCTOR'S APPOINTMENT AttachmentsThe following attachments cannot be sent through Care Everywhere.Foot Sprain (Liberian)Strains and Sprains, Self-Care for (Liberian)Strains and Sprains, Treating (Liberian)documented in this encounter Plan of Treatment Name Type Priority Associated Diagnoses Date/Ti me XR ANKLE 3+ VW RIGHT IMAGING STAT Acute right ankle pain 03/31/2020 5:55 AM CDT Foot pain, right XR FOOT <3 VW RIGHT IMAGING STAT Acute right ankle pain 03/31/2020 5:55 AM CDT Foot pain, right Health Maintenance Due Date Last Done Comments PNEUMOCOCCAL 0-64 YEARS COMBINED SERIES (1 of - 1989 PPSV23) DTaP,Tdap,and Td Vaccines (1 - Tdap) 1994 Depression Screening 1995 PAP SMEAR 2004 INFLUENZA VACCINE (#1) 2020 documented as of this encounter Procedures Procedure Name Priority Date/Time Associated Diagnosis Comme nts XR FOOT <3 VW RIGHT STAT 03/31/2020 5:55 AM CDT Acut e right ankle pain Foot pain, right Procedure Note - [facility], Radia nt Results Inft User - 03/31/2020 6:33 AM CDT EXAM: XR ANKLE 3+ VW RIGHT, XR FOOT <3 VW RIGHT HISTORY: 34 years-old Female trauma and swelling COMPARISON: None. FINDINGS: Radiographs of the right manas t and ankle demonstrate no acute fracture or dislocation. The ankle morti se is anatomic. Prominent calcaneal enthesophytes are present. M ild soft tissue swelling is present. IMPRESSION Soft tissue swelling without underlying acute osseous abnormality. Preliminary Report Dictated by Resident: Chema Damon XR ANKLE 3+ VW RIGHT STAT 03/31/2020 5:55 AM CDT Acu te right ankle pain Foot pain, right Procedure Note - [facility], Radia nt Results Inft User - 03/31/2020 6:33 AM CDT EXAM: XR ANKLE 3+ VW RIGHT, XR FOOT <3 VW RIGHT HISTORY: 34 years-old Female trauma and swelling COMPARISON: None. FINDINGS: Radiographs of the right manas t and ankle demonstrate no acute fracture or dislocation. The ankle morti se is anatomic. Prominent calcaneal enthesophytes are present. M ild soft tissue swelling is present. IMPRESSION Soft tissue swelling without underlying acute osseous abnormality. Preliminary Report Dictated by Resident: Chema Damon NOTICE OF PRIVACY PRACTICES Routine 03/31/2020 5:23 AM CDT CONSENT/REFUSAL FOR DIAGNOSIS AND TREATMENT Routine 03/31/2020 5:23 AM CDT documented in this encounter Results Not on filedocumented in this encounter Visit Diagnoses Diagnosis Acute right ankle pain - Primary Foot pain, right Pain in limb Sprain of right ankle, unspecified ligam ent, initial encounter Foot sprain, right, initial encounter Elevated blood pressure reading Elevated blood pressure reading without diagnosis of hypertension documented in this encounter Administered Medications Medication Order MAR Action Action Date Dose Rate Site HYDROcodone-acetaminophen Given 03/31/2020 7:01 AM CDT 1 tablet (NORCO) 10-325 mg tablet 1 tablet 1 tablet, Oral, ONCE NOW, 1 dose, Tu03/31/20 at 0800, Routine documented in this encounter documented as of this encounter
--- OUTSIDE RECORDS SUMMARY | 2020-05-31 20:12 | XMS REPORT | Continuity of Care Document ---
:1985 Author Organization [facility] t Address [address] [place] [address] Care Team Providers Name Role Phone Kelsy De Guzman MD Attending Clinician Kinjal Trejo APN Attending Clinician Problems This patient has no known problems. Allergies, Adverse Reactions, Alerts This patient has no known allergies or adverse reactions. Medications This patient has no known medications. Procedures This patient has no known procedures. Encounters Start End Encounter Admission Attending Care Care Encounter Source Date/Time Date/Time Type Type Clinicians Facility Department ID 2020-03-31 2020-03-31 Emergency [facility] [id number] 05:32:50 07:12:00 Teofilo Joseph [id number] [place] [id number] [place] [id number] 2019-10-27 2019-10-[address] [facility] [id number] 12:36:57 14:05:00 Murali Joseph [id number] [place] [id number] [place] [id number] Results This patient has no known results.
[2020-05-31 21:42] LABS: Urine Bacteria >50 /HPF (<20); Urine Culture Reflex Order NOT NEEDED; Urine RBC NONE SEEN /HPF (NONE SEEN)
[2020-05-31 21:58] LABS: Urine Blood NEGATIVE (NEG); Urine Glucose 2+ (NEG); Urine Protein NEGATIVE (NEG); Urine pH 5.5 (5.0-7.0)
[2020-05-31 22:05] LABS: Arterial Blood Carboxyhemoglob 1.5 % (0-1.5); Blood Gas Oxyhemoglobin 93.2 % (94-97); Blood O2 Saturation 95.6 % (92-98.5)
[2020-05-31 22:24] LABS: Basophils % 0.6 % (0-1.3); Hematocrit 43.8 % (36.0-45.0); MPV 8.4 fL (7.6-11.3); RBC Red Blood Cell Count 5.04 M/uL (3.86-4.86)
[2020-05-31] MEDS ORDERED: NA CHLORIDE 0.9% 2,000 ML ONE (22:29)
[2020-05-31] MEDS ORDERED: ACETAMINOPHEN 500 MG TAB ONE (22:29)
[2020-05-31 22:46] LABS: ALT/SGPT 28 U/L (12-78); AST/SGOT 21 U/L (15-37); Albumin 3.5 g/dL (3.4-5.0); Alkaline Phosphatase 116 U/L (45-117); BUN Blood Urea Nitrogen 6 mg/dL (7-18); Bicarbonate 28 mmol/L (21-32); Bilirubin Direct 0.1 mg/dL (0-0.2); Bilirubin Total 0.4 mg/dL (0.2-1.0); Glucose Level 202 mg/dL (74-106); Potassium 3.6 mmol/L (3.5-5.1); Protein, Total 7.8 g/dL (6.4-8.2); Sodium Level 139 mmol/L (136-145)
--- NOTE | 2020-06-01 00:54 | EDPHYS ---
Physician Documentation [facility] Name: Clementina Hartley Age: 34 yrs Sex: Female : 1985 Arrival Date: 05/31/2020 Time: 20:10 Bed 13 Private MD: ED Physician Darek Estrella HPI: 05/31 21:58 This 34 yrs old Female presents to ER via Ambulatory with complaints of High pkl Blood Sugar, Dehydrated. 21:58 The patient or guardian reports hyperglycemia, polyuria. Onset: The symptoms/episode pkl began/occurred 2 day(s) ago. Associated signs and symptoms: Pertinent positives: thirst. Checked her blood sugar at home and noted blood sugar was 520. 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 - Social history:: Smoking status: Patient reports the use of cigarette tobacco products, denies chronic smoking, but will smoke occasionally. ROS: 21:58 Eyes: Negative for injury, pain, redness, and discharge, ENT: Negative for injury, pkl pain, and discharge, Neck: Negative for injury, pain, and swelling, Cardiovascular: Negative for chest pain, palpitations, and edema, Respiratory: Negative for shortness of breath, cough, wheezing, and pleuritic chest pain, Abdomen/GI: Negative for abdominal pain, nausea, vomiting, diarrhea, and constipation, Back: Negative for injury and pain. 21:58 : Positive for urinary frequency. 21:58 MS/extremity: Negative for acute changes. 21:58 Skin: Negative for rash. 21:58 Neuro: Negative for altered mental status, loss of consciousness. Exam: 21:58 Head/Face: Normocephalic, atraumatic. Eyes: Pupils equal round and reactive to light, pkl extra-ocular motions intact. Lids and lashes normal. Conjunctiva and sclera are non-icteric and not injected. Cornea within normal limits. Periorbital areas with no swelling, redness, or edema. ENT: Nares patent. No nasal discharge, no septal abnormalities noted. Tympanic membranes are normal and external auditory canals are clear. Oropharynx with no redness, swelling, or masses, exudates, or evidence of obstruction, uvula midline. Mucous membranes moist. Neck: Trachea midline, no thyromegaly or masses palpated, and no cervical lymphadenopathy. Supple, full range of motion without nuchal rigidity, or vertebral point tenderness. No Meningismus. Chest/axilla: Normal chest wall appearance and motion. Nontender with no deformity. No lesions are appreciated. Cardiovascular: Regular rate and rhythm with a normal S1 and S2. No gallops, murmurs, or rubs. Normal PMI, no JVD. No pulse deficits. Respiratory: Lungs have equal breath sounds bilaterally, clear to auscultation and percussion. No rales, rhonchi or wheezes noted. No increased work of breathing, no retractions or nasal flaring. Abdomen/GI: Soft, non-tender, with normal bowel sounds. No distension or tympany. No guarding or rebound. No evidence of tenderness throughout. Back: No spinal tenderness. No costovertebral tenderness. Full range of motion. Skin: Warm, dry with normal turgor. Normal color with no rashes, no lesions, and no evidence of cellulitis. MS/ Extremity: Pulses equal, no cyanosis. Neurovascular intact. Full, normal range of motion. Neuro: Awake and alert, GCS 15, oriented to person, place, time, and situation. Cranial nerves II-XII grossly intact. Motor strength 5/5 in all extremities. Sensory grossly intact. Cerebellar exam normal. Normal gait. Vital Signs: 20:22 BP 153 / 102; Pulse 89; Resp 17; Temp 98.6; Pulse Ox 96% ; Height 5 ft. 6 in. (167.64 ll1 cm); Pain 8/10; 22:30 BP 141 / 96; Pulse 84; Resp 18; Pulse Ox 100% on R/A; wh 06/01 00:00 BP 121 / 83; Pulse 82; Resp 18; Pulse Ox 99% on R/A; 01:02 BP 118 / 94; Pulse 89; Resp 18; Pulse Ox 100% on R/A; MDM: 05/31 21:22 Patient medically screened. pkl 06/01 00:50 Data reviewed: vital signs, nurses notes. ED course: Patient feeling better. Discussed pkl lab results with patient. Advised to follow up with PCP in 1 week. Patient understood instructions. 05/31 20:43 Order name: Glucose, Ancillary Testing; Complete Time: 21:51 EDMA 05/31 21:08 Order name: Urine Microscopic Only 05/31 21:16 Order name: Urine Dipstick--Ancillary (enter results) [facility] 05/31 21:16 Order name: Urine --Ancillary (enter results) [facility] 05/31 21:43 Order name: Urine Microscopic Only; Complete Time: 21:51 EDMA 05/31 21:55 Order name: CBC with Diff [facility] 05/31 21:55 Order name: Chem 7 [facility] 05/31 21:55 Order name: LFT's [facility] 05/31 21:55 Order name: Hemoglobin A1c [facility] 05/31 21:55 Order name: ABG [facility] 05/31 21:58 Order name: Urine --Ancillary; Complete Time: 23:42 EDMA 05/31 21:58 Order name: Urine Dipstick-Ancillary; Complete Time: 23:42 EDMA 05/31 22:28 Order name: CBC with Automated Diff; Complete Time: 23:42 EDMA 05/31 22:28 Order name: ABG Arterial Blood Gas; Complete Time: 23:42 EDMA 05/31 21:08 Order name: Urine Dipstick-Ancillary (obtain specimen); Complete Time: 21:15 05/31 21:08 Order name: Urine Test (obtain specimen); Complete Time: 21:15 05/31 22:46 Order name: Basic Metabolic Panel; Complete Time: 23:42 [facility] 05/31 22:46 Order name: Liver (Hepatic) Function; Complete Time: 23:42 [facility] 05/31 23:49 Order name: Glucose, Ancillary Testing; Complete Time: 00:26 EDMA 06/01 00:10 Order name: Hemoglobin A1c; Complete Time: 00:26 EDMS Administered Medications: 05/31 22:21 Drug: NS 0.9% 1000 ml Route: IV; Rate: 1000 ml; Site: left antecubital; 06/01 00:10 Follow up: Response: No adverse reaction; IV Status: Completed infusion 05/31 22:21 Drug: Tylenol 1000 mg Route: PO; 06/01 00:10 Follow up: Response: No adverse reaction; Pain is decreased 05/31 23:37 Drug: NS 0.9% 1000 ml Route: IV; Rate: 125 ml/hr; Site: left antecubital; 06/01 01:03 Follow up: Response: No adverse reaction; IV Status: Order to discontinue infusion Disposition: 06/01/20 00:53 Discharged to Home. Impression: New onset Diabetes. - Condition is Stable. - Prescriptions for Metformin 500 mg Oral Tablet - take 1 tablet by ORAL route 2 times per day for 30 days Then take 1 tablet with morning meals AND evening meals; 60 tablet. - Medication Reconciliation Form, Thank You Letter, Antibiotic Education, Prescription Opioid Use, Work release form form. - Follow up: Private Physician; When: 1 week; Reason: Re-evaluation by your physician. - Problem is new. - Symptoms have improved. Signatures: Dispatcher [employer] EDMS Darek Estrella MD MD pkl Ballard, Brenda RN RN Brenton Pettit Lynsay, RN RN ll1 Corrections: (The following items were deleted from the chart) 01:03 00:53 06/01/2020 00:53 Discharged to Home. Impression: New onset Diabetes. Condition is Stable. Forms are Medication Reconciliation Form, Thank You Letter, Antibiotic Education, Prescription Opioid Use. Follow up: Private Physician; When: 1 week; Reason: Re-evaluation by your physician. Problem is new. Symptoms have improved. pkl
--- NOTE | 2020-06-01 00:54 | ER ---
Nurse's Notes [facility] Name: Clementina Hartley Age: 34 yrs Sex: Female : 1985 Arrival Date: 05/31/2020 Time: 20:10 Bed 13 Private MD: Diagnosis: New onset Diabetes Presentation: 05/31 20:22 Chief complaint: Patient states: Frequent thirst, frequent urination, nausea, blurred ll1 vision for 2 days. Checked her blood sugar at home, fingerstick 520. Not a known diabetic, but runs in the family. Coronavirus screen: Client denies travel out of the [place] in the last 14 days. At this time, the client does not indicate any symptoms associated with coronavirus-19. Ebola Screen: Patient denies travel to an Ebola-affected area in the 21 days before illness onset. Initial Sepsis Screen: Does the patient meet any 2 criteria? No. Patient's initial sepsis screen is negative. Risk Assessment: Do you want to hurt yourself or someone else? Patient reports no desire to harm self or others. Onset of symptoms was May 30, 2020. 20:22 Method Of Arrival: Ambulatory ll1 20:22 Acuity: ELI 2 ll1 22:30 Initial Sepsis Screen: Does the patient have a suspected source of infection? Yes: wh Dysuria/Frequency/Urgency/UTI. 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 - Social history:: Smoking status: Patient reports the use of cigarette tobacco products, denies chronic smoking, but will smoke occasionally. Screenin:30 Abuse screen: Denies threats or abuse. Denies injuries from another. Nutritional wh screening: No deficits noted. Tuberculosis screening: No symptoms or risk factors identified. Fall Risk None identified. Assessment: 21:30 General: Appears in no apparent distress. Behavior is calm, cooperative, appropriate wh for age. Pain: Complains of pain in head ache. Neuro: Level of Consciousness is awake, alert, obeys commands, Oriented to person, place, time, situation, Appropriate for age. Neuro: Reports weakness. Cardiovascular: Heart tones S1 S2. Respiratory: Airway is patent Respiratory effort is even, unlabored, Respiratory pattern is regular, symmetrical, Breath sounds are clear bilaterally. GI: Abdomen is flat, non-distended. GI:. : Reports urinary frequency. EENT: No signs and/or symptoms were reported regarding the EENT system. Derm: Skin is intact, is healthy with good turgor, Skin is pink, warm \T\ dry. normal. Musculoskeletal: Circulation, motion, and sensation intact. 22:45 Reassessment: Patient appears in no apparent distress at this time. No changes from previously documented assessment. Patient and/or family updated on plan of care and expected duration. Pain level reassessed. Patient is alert, oriented x 3, equal unlabored respirations, skin warm/dry/pink. 06/01 00:00 Reassessment: Patient appears in no apparent distress at this time. Patient and/or family updated on plan of care and expected duration. Pain level reassessed. Patient is alert, oriented x 3, equal unlabored respirations, skin warm/dry/pink. 01:02 Reassessment: Patient appears in no apparent distress at this time. Patient and/or family updated on plan of care and expected duration. Pain level reassessed. Patient is alert, oriented x 3, equal unlabored respirations, skin warm/dry/pink. Patient states feeling better. Patient states symptoms have improved. Vital Signs: 05/31 20:22 BP 153 / 102; Pulse 89; Resp 17; Temp 98.6; Pulse Ox 96% ; Height 5 ft. 6 in. (167.64 ll1 cm); Pain 8/10; 22:30 BP 141 / 96; Pulse 84; Resp 18; Pulse Ox 100% on R/A; 06/01 00:00 BP 121 / 83; Pulse 82; Resp 18; Pulse Ox 99% on R/A; 01:02 BP 118 / 94; Pulse 89; Resp 18; Pulse Ox 100% on R/A; ED Course: 05/31 20:10 Patient arrived in ED. cl3 20:25 Triage completed. ll1 20:26 Arm band placed on. ll1 21:04 Brenton Clemons is Primary Nurse. 21:22 Darek Estrella MD is Attending Physician. pkl 22:10 Inserted saline lock: 22 gauge in left antecubital area, using aseptic technique. Blood mw2 collected. 22:30 Patient has correct armband on for positive identification. Bed in low position. Call light in reach. Side rails up X 1. Pulse ox on. NIBP on. 06/01 01:02 No provider procedures requiring assistance completed. IV discontinued, intact, bleeding controlled, No redness/swelling at site. Administered Medications: 05/31 22:21 Drug: NS 0.9% 1000 ml Route: IV; Rate: 1000 ml; Site: left antecubital; 06/01 00:10 Follow up: Response: No adverse reaction; IV Status: Completed infusion 05/31 22:21 Drug: Tylenol 1000 mg Route: PO; 06/01 00:10 Follow up: Response: No adverse reaction; Pain is decreased 05/31 23:37 Drug: NS 0.9% 1000 ml Route: IV; Rate: 125 ml/hr; Site: left antecubital; 06/01 01:03 Follow up: Response: No adverse reaction; IV Status: Order to discontinue infusion Outcome: 00:53 Discharge ordered by . pkl 01:03 Discharged to home ambulatory. 01:03 Condition: stable 01:03 Discharge instructions given to patient, Instructed on discharge instructions, follow up and referral plans. medication usage, POC Demonstrated understanding of instructions, follow-up care, medications, POC Prescriptions given X 1. 01:03 Patient left the ED. Signatures: Darek Estrella MD MD pkl Habalo, Winsy Valentín Castro mw2 Jose Wagoner cl3 Raul Wagoner, RN RN ll1 Corrections: (The following items were deleted from the chart) 05/31 20:43 20:26 Arm band placed on Patient placed in an exam room, on a stretcher, ll1 ll1
[2020-06-01 01:09] VITALS: TEMP 98.6
[2020-06-01 01:17] VITALS: BP 118/94; O2SAT 100
== END 2020-06-01 01:03 | disposition home or self-care (01) ==
LOC: ER 20:10
DX: E11.65 Type 2 diabetes mellitus with hyperglycemia (principal); F17.210 Nicotine dependence, cigarettes, uncomplicated; Z88.0 Allergy status to penicillin; Z91.040 Latex allergy status; Z91.048 Other nonmedicinal substance allergy status
CPT/HCPCS: 96361; 85025; 80048; 36415; 81025; 82947 ×2; 80076; 83036; 82805; 96360; 99284; J7030; 81003; 81015

== ENCOUNTER 2020-08-09 17:18 | Emergency (ER) | payer OTHER ==
--- OUTSIDE RECORDS SUMMARY | 2020-08-09 17:21 | XMS REPORT | Summary of Care ---
:1985 Author Organization [facility] Address [address] [place] [address] Care Team Providers Name Role Phone RAE LewisP Primary Care Provider Encounter Details Date Type Department Care Team Description 06/18/2020 Orders Only [facility] Doctor Unassigned, No 301 [facility] [place] [address] [address] [place] [address] Allergies Active Allergy Reactions Severity Noted Date Comments Iodine Anaphylaxis 06/03/2015 Latex Hives 06/03/2015 Penicillins Anaphylaxis 06/03/2015 documented as of this encounter (statuses as of 06/18/2020) Medications Medication Sig Dispensed Refills Start Date [...] as of this encounter (statuses as of 06/18/2020) Active Problems Problem Noted Date Right knee pain 11/23/2015 Abscess of left thigh 06/03/2015 documented as of this encounter (statuses as of 06/18/2020) Social History Tobacco Use Types Packs/Day Years Used Date Current Every Day Smoker 0.25 Smokeless Tobacco: Never Used Alcohol Use Drinks/Week oz/Week Comments Yes Sex Assigned at Date Recorded Not on file COVID-19 Exposure Response Date Recorded In the last month, have you been in contact with No / Unsure 06/17/2020 8:17 AM CDT someone who was confirmed or suspected to have Coronavirus / COVID-19? documented as of this encounter Last Filed Vital Signs Not on filedocumented in this encounter Plan of Treatment Date Type Specialty Care Team Description 06/18/2020 Office Visit Family Medicine Angelika Lewis, EC[employer] ECOLOGY PROFESSOR [address] [phone] Health Maintenance Due Date Last Done Comments PNEUMOCOCCAL 0-64 YEARS COMBINED SERIES (1 of 3 - 1989 PCV13) Depression Screening 1995 DTaP,Tdap,and Td Vaccines (1 - Tdap) 2002 PAP SMEAR 2004 INFLUENZA VACCINE (#1) 2020 documented as of this encounter Procedures Procedure Name Priority Date/Time Associated Diagnosis Comme nts ASSIGNMENT OF BENEFITS Routine 06/18/2020 9:08 AM CDT documented in this encounter Results Not on filedocumented in this encounter Insurance Payer Benefit Plan / Group Subscriber ID Effective Dates Phone Address Type LATOYA HOPKINS [id number] 2018-Present Jorge L tapia documented as of this encounter
--- OUTSIDE RECORDS SUMMARY | 2020-08-09 17:21 | XMS REPORT | Summary of Care ---
:1985 Author Organization [facility] - [facility] Address [address] [place] [address] Care Team Providers Name Role Phone SIMIN Lewis Primary Care Provider Reason for Visit Reason Comments LAB WORK Encounter Details Date Type Department Care Team Description 06/18/2020 Senior Qa Tester Visit [facility] Family Brandi Lewis FNP [address] [phone] Type 2 diabetes mellitus without complic ation, without long- term current use of insulin; [facility], Adc Fam Pob I Essential hypertension [address] [place] [address] Allergies Active Allergy Reactions Severity Noted Date Comments Iodine Anaphylaxis 06/03/2015 Latex Hives 06/03/2015 Penicillins Anaphylaxis 06/03/2015 documented as of this encounter (statuses as of 06/18/2020) Medications Medication Sig Dispensed Refills Start Date End Date Status lisinopriL 40 mg Take 1 tablet by 30 tablet 2 06/18/202009/16 Active tabletIndications: mouth daily for Essential hypertension 90 days. metoprolol succinate Take 1 tablet by 30 tablet 2 06/18/2020 0 09/16/2020 Active XL 25 mg 24 hr mouth daily for tabletIndications: 90 days. Essential hypertension glipiZIDE 10 mg Take 1 tablet by 30 tablet 2 06/18/20202020 Active tabletIndications: mouth daily for Type 2 diabetes 90 days. mellitus without complication, without long-term current use of insulin metFORMIN 1,000 mg Take 1 tablet by 60 tablet 2 06/18/2020 Active tabletIndications: mouth 2 (two) Type 2 diabetes times daily with mellitus without meals for 90 complication, without days. long-term current use of insulin fluconazole 200 mg Take 1 tablet by 5 tablet 0 06/18/2020 Active tabletIndications: mouth daily for Tinea corporis 5 days. clotrimazole-betametha Apply to 15 g 2 06/18/20202019 Active sone (LOTRISONE) area(s) 2 (two) creamIndications: times daily for Tinea corporis 21 days. documented as of this encounter (statuses as of 06/18/2020) Active Problems Problem Noted Date Right knee pain 11/23/2015 Abscess of left thigh 06/03/2015 documented as of this encounter (statuses as of 06/18/2020) Immunizations Name Administration Dates Next Due Pneumococcal Polysaccharide, PPSV23 (PNEUMOVAX) 06/18/2020 documented as of this encounter Social History Tobacco Use Types Packs/Day Years [...] Signs Not on filedocumented in this encounter Nursing Notes Luh Balderas - 06/18/2020 11:20 AM CDT Venipuncture collection performed by clean technique on the left anticubitus. Total of 1 attempts were made. Slight pressure and a bandage/dressing were applied to the site(s). The patient experienced no complications. The following specimens were processed according to instructions and sent to [facility] laboratories per lab order on today: LT BLUE SST 1 RED LAV 2 PPT DK GREEN (LiHep) DK GREEN (SodH) ROSE DK BLUE (K2) DK BLUE (S) ACD Blood Culture NIPT/NTD documented in this encounter Plan of Treatment Date Type Specialty Care Team Description 09/17/2020 Office Visit Family Medicine Angelika Lewis, SIMIN [address] [phone] Health Maintenance Due Date Last Done Comments HgA1C 1984 PNEUMOCOCCAL 0-64 YEARS COMBINED 1989 SERIES (1 of 3 - PCV13) EYE EXAM 1993 LDL-C 1993 URINE MICROALBUMIN 1993 Depression Screening 1995 FOOT EXAM 2001 DTaP,Tdap,and Td Vaccines (1 - 2002 Tdap) PAP SMEAR 2004 CREATININE (SERUM) 04/27/2018 04/27/2017, 08/03/2015, 06/05/2015, Additional history exists INFLUENZA VACCINE (#1) 2020 documented as of this encounter Results Not on filedocumented in this encounter Visit Diagnoses Diagnosis Type 2 diabetes mellitus without complic ation, without long-term current use of insulin Essential hypertension Unspecified essential hypertension documented in this encounter documented as of this encounter
--- OUTSIDE RECORDS SUMMARY | 2020-08-09 17:21 | XMS REPORT | Summary of Care ---
:1985 Author Organization [facility] Address [address] [place] [address] Care Team Providers Name Role Phone SIMIN Lewis Primary Care Provider Reason for Referral (Routine) Status Reason Specialty Diagnoses / Referred By Referred To Procedures Contact Contact New Request Orthopedic Surgery Diagnoses Type 2 diabetes mellitus without complication, without long-term current use of insulin Angelika Lewis, Procedures CONSULT/REFERRAL PODIATRY HEDDLER TIER [address] [place] [address] [address] Reason for Visit Reason Comments Establish Care Diabetes Rash Rash on Rt Foot Encounter Details Date Type Department Care Team Description 06/18/2020 Office Visit [facility] Family Julienne Lewis FNP Type 2 diabetes mellitus without complic ation, without long-term current use of insulin (Primary Dx); Medicine - [address] Essential hypertension; [address] [place] [address] Tinea corporis; Drive [facility] [place] [id number] Allergies Active Allergy Reactions Severity Noted Date Comments Iodine Anaphylaxis 06/03/2015 Latex Hives 06/03/2015 Penicillins Anaphylaxis 06/03/2015 documented as of this encounter (statuses as of 06/18/2020) Medications Medication Sig Dispensed Refills Start End Status Date Date lisinopriL 40 mg Take 1 tablet 30 tablet 2 06/18/20 Active tabletIndications: by mouth daily 021 Essential hypertension for 90 days. metoprolol succinate Take 1 tablet 30 tablet 2 06/18/2009/16 Active XL 25 mg 24 hr by mouth daily 021 tabletIndications: for 90 days. Essential hypertension glipiZIDE 10 mg Take 1 tablet 30 tablet 2 06/18/20 Active tabletIndications: by mouth daily 021 Type 2 diabetes for 90 days. mellitus without complication, without long-term current use of insulin metFORMIN 1,000 mg Take 1 tablet 60 tablet 2 06/18/20 Active tabletIndications: by mouth 2 021 Type 2 diabetes (two) times mellitus without daily with complication, without meals for 90 long-term current use days. of insulin fluconazole 200 mg Take 1 tablet 5 tablet 0 06/18/20 Active tabletIndications: by mouth daily 20 020 Tinea corporis for 5 days. clotrimazole-betametha Apply to 15 g 2 06/18/20 Active sone (LOTRISONE) area(s) 2 020 creamIndications: (two) times Tinea corporis daily for 21 days. methylPREDNISolone Take by mouth 21 Each 0 10/02/19 Discontinued (MEDROLWALESKA,) 4 mg SEE-INSTRUCTIO (Patient tabletsIndications: NS. follow Reported) Herpes zoster without package complication directions acetaminophen-codeine Take 1 tablet 20 tablet 0 10/02/1906/04 Discontinued (TYLENOL-CODEINE #3) by mouth every 020 (Patient 300-30 mg 4 (four) hours Repor onel) tabletIndications: as needed for Herpes zoster without Pain (scale complication 7-10). benzonatate 100 mg Take 1 capsule 20 capsule 0 10/27/1906/18 Discontinued capsuleIndications: by mouth 3 020 (Patient Cough (three) times Report ed) daily as needed for Cough. traMADol (ULTRAM) 50 Take 1 tablet 20 tablet 0 03/31/2006/18 Discontinued mg tabletIndications: by mouth every 020 (Patient acute pain 6 (six) hours Repor onel) as needed for Pain (scale 7-10). Indications: acute pain metFORMIN 500 mg Take 500 mg by 0 Discontinued tablet mouth 2 (two) 020 (Dose times daily adjustme nt) with meals. documented as of this encounter (statuses as [...] Sign Reading Time Taken Comments Blood Pressure 171/116 06/18/2020 9:34 AM CDT Pulse 125 06/18/2020 9:34 AM CDT Temperature - - Respiratory Rate - - Oxygen Saturation - - Inhaled Oxygen Concentration - - Weight 100.2 kg (221 lb) 06/18/2020 9:33 AM CDT Height 167.6 cm (5' 6") 06/18/2020 9:33 AM CDT Body Mass Index 35.67 06/18/2020 9:33 AM CDT documented in this encounter Progress Notes Angelika Lewis, SIMIN - 06/18/2020 9:30 AM CDT Cc: Chief Complaint Patient presents with Establish Care Diabetes Rash Rash on Rt Foot Clementina Hartley is a 34 year old female. Patient with strong family hx of diabetes and hypertension, was diagnosed with diabetes years ago for which she was started on glipizide and metformin because mono therapy was not helping. She then lost significant amounts of weight and was taken off the medication as she was controlled. She has been without insurance until recently, last week she went to the ER due to blurry vision, during which shewas told her blood sugar was elevated and she was told to establish care with PCP and re start diabetes treatment. She also has been having elevated blood pressure and not on routine meds, denies any associated symptoms. She also has has a rash bilateral feet that are erythematous papule rash with centralized clearing, very itching with no relief from OTC cream. She is also needed pneumonia vaccine today. Diabetes She presents for her follow-up diabetic visit. She has type 2 diabetes mellitus. No MedicAlert identification noted. Her disease course has been worsening. There are no hypoglycemic associated symptoms. Associated symptoms include visual change (noted by a her crown blocker ). Pertinent negatives for diabetes include no chest pain. There are no hypoglycemic complications. Symptoms are worsening. There are no diabetic complications. Risk factors for coronary artery disease include diabetes mellitus, family history, obesity, hypertension, stress, tobacco exposure and sedentary lifestyle. Current diabetic treatment includes oral agent (triple therapy). She is compliant with treatment all of the time. He r weight is decreasing steadily. She is following a generally healthy diet. When asked about meal planning, she reported none. She has not had a previous visit with a dietitian. She participates in exercise intermittently. Her home blood glucose trend is increasing steadily. Her breakfast blood glucose range is generally >200 mg/dl. An CLAUDIA inhibitor/angiotensin II receptor lily is not being taken. 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 Allergies Clementina is allergic to iodine; latex; and pcn [penicillins]. Medications Outpatient Medications Prior to Visit Medication Sig Dispense Refill metFORMIN 500 mg tablet Take 500 mg by mouth 2 (two) times daily with meals. traMADol (ULTRAM) 50 mg tablet Take 1 tablet by mouth every 6 (six) hours as needed for Pain (scale 7-10). Indications: acute pain 20 tablet 0 benzonatate 100 mg capsule Take 1 capsule by mouth 3 (three) times daily as needed for Cough. 20capsule 0 acetaminophen-codeine (TYLENOL-CODEINE #3) 300-30 mg tablet Take 1 tablet by mouth every 4 (four) hours as needed for Pain (scale 7-10). 20 tablet 0 methylPREDNISolone (MEDROL, WALESKA,) 4 mg tablets Take by mouth SEE- INSTRUCTIONS. follow package directions 21 Each 0 No facility-administered medications prior to visit. Histories Past Medical History: Diagnosis Date Diabetes mellitus Hypertension Past Surgical History: Procedure Laterality Date CHOLECYSTECTOMY 05-26-15 INCISION AND DRAINAGE OF ABSCESS Left 06/04/2015 Surgeon: Stephen Bucio MD; Location: [facility] Social History Socioeconomic History Marital status: Spouse name: Not on file Number of children: Not on file Years of education: Not on file Highest education level: Not on file Occupational History Not on file Social Needs Financial resource strain: Not on file Food insecurity Worry: Not on file Inability: Not on file Transportation needs Medical: Not on file Non-medical: Not on file Tobacco Use Smoking status: Current Every Day Smoker Packs/day: 0.25 Smokeless tobacco: Never Used Substance and Sexual Activity Alcohol use: Yes Drug use: Not on file Sexual activity: Not on file Lifestyle Physical activity Days per week: Not on file Minutes per session: Not on file Stress: Not on file Relationships Social connections Talks on phone: Not on file Gets together: Not on file Attends gnosticism service: Not on file Active member of club or organization: Not on file Attends meetings of clubs or organizations: Not on file Relationship status: Not on file Intimate partner violence Fear of current or ex partner: Not on file Emotionally abused: Not on file Physically abused: Not on file Forced sexual activity: Not on file Other Topics Concern Not on file Social History Narrative Not on file Family History Problem Relation Age of Onset Hypertension Mother Diabetes Mother Diabetes Maternal Grandmother Hypertension Maternal Grandmother Review of Systems Constitutional: Negative. HENT: Negative. Eyes: Negative. Respiratory: Negative. Negative for apnea, cough, choking, chest tightness, shortness of breath andwheezing. Cardiovascular: Negative. Negative for chest pain, palpitations and leg swelling. Gastrointestinal: Negative. Genitourinary: Negative. Musculoskeletal: Negative. Skin: Negative. Neurological: Positive for numbness (fingers). Endocrine: Endocrine negative Vital Signs BP (!) 171/116 | Pulse 125 | Ht 5' 6" (1.676 m) | Wt 221 lb (100.2 kg) | BMI 35.67 kg/m Physical Exam Vitals signs and nursing note reviewed. Constitutional: Appearance: She is well-developed. HENT: Head: Normocephalic. Right Ear: External ear normal. Left Ear: External ear normal. Nose: Nose normal. Neck: Musculoskeletal: Normal range of motion and neck supple. Cardiovascular: Rate and Rhythm: Normal rate and regular rhythm. Heart sounds: Normal heart sounds. No murmur. No friction rub. No gallop. Pulmonary: Effort: Pulmonary effort is normal. No respiratory distress. Breath sounds: Normal breath sounds. No wheezing or rales. Chest: Chest wall: No tenderness. Abdominal: General: Bowel sounds are normal. There is no distension. Palpations: Abdomen is soft. Tenderness: There is no abdominal tenderness. Skin: General: Skin is warm and dry. Capillary Refill: Capillary refill takes less than 2 seconds. Coloration: Skin is not pale. Findings: No erythema or rash. Neurological: Mental Status: She is alert and oriented to person, place, and time. Psychiatric: Mood and Affect: Mood normal. Assessment/Plan Type 2 diabetes mellitus without complication, without long-term current use of insulin (primary encounter diagnosis) Comment: will add glipizide and increase metformin as this was the regimen she was on in the past that helped- regimen started at ER has no show any therapeutic effect. CLAUDIA inhibitor added to regimen today for nephroprotection and hypertension Plan: CBC WITH DIFF, COMP. METABOLIC PANEL (09143), THYROID STIMULATING HORMONE, LIPID PANEL (07571)(TOTAL CHOLESTEROL, TRIGLYCERIDES, HDL), GLYCOSYLATED HEMOGLOBIN (A1C), glipiZIDE 10 mg tablet, metFORMIN 1,000 mg tablet, CONSULT/REFERRAL PODIATRY Essential hypertension Comment: will initiate therapy with lisinopril, metoprolol added due to tachy cardia Plan: CBC WITH DIFF, COMP. METABOLIC PANEL (24070), THYROID STIMULATING HORMONE, LIPID PANEL (83991)(TOTAL CHOLESTEROL, TRIGLYCERIDES, HDL), lisinopriL 40 mg tablet, metoprolol succinate XL 25 mg 24 hr tablet Tinea corporis Comment: will treat systemically since topical has not helped sn rash is getting worse. Plan: fluconazole 200 mg tablet, clotrimazole-betamethasone (LOTRISONE) cream Need for vaccination Comment: she declined flu vaccine Plan: PNEUMOCOCCAL VACCINE, 23-VALENT (PNEUMOVAX) Patient encouraged to expect mild soreness in the arm/site for a day or so. Contact your healthcare provider or this facility if you develop symptoms of allergic reaction, which include: Pain, redness, and swelling at the injection site Trouble breathing Rash Plan of care, desired health behaviors, goals, and medication discussed with patient. Education resources provided and reviewed with AVS. Patient/guardian/family verbalized understanding & agrees to plan of care. This visit did not involve counseling and coordination that comprised more than 50% of the visit time. If applicable, the [facility] database was accessed to review any controlled substance prescription claims data. The [employer] prescription claims data in [employer] was reviewed to assess patient compliance with the medication treatment plan. documented in this encounter Plan of Treatment Date Type Specialty Care Team Description 09/17/2020 Office Visit Family Medicine Angelika Lewis FNP [address] [phone] Name Type Priority Associated Diagnoses Date/Ti me COMP. METABOLIC PANEL LAB Routine Type 2 diabetes irish litus 06/18/2020 10:39 AM (14276) without complication, CDT without long-term current use of insulin Essential hypertension THYROID STIMULATING LAB Routine Type 2 diabetes melli tus 06/18/2020 10:39 AM HORMONE without complication, CDT without long-term current use of insulin Essential hypertension LIPID PANEL (31697)(TOTAL LAB Routine Type 2 diabetes mellitus 06/18/2020 10:39 AM CHOLESTEROL, without complication, CDT TRIGLYCERIDES, HDL) without long-term cur rent use of insulin Essential hypertension GLYCOSYLATED HEMOGLOBIN LAB Routine Type 2 diabetes m avaitus 06/18/2020 10:39 AM (A1C) without complication, CDT without long-term current use of insulin Name Type Priority Associated Diagnoses Order S chedule THYROID STIMULATING LAB Routine Type 2 diabetes gladys tus Expected: 06/18/2020, HORMONE without complication, s: 06/18/2021 without long-term current use of insulin Essential hypertension GLYCOSYLATED HEMOGLOBIN LAB Routine Type 2 diabetes m avaitus Expected: 06/18/2020, (A1C) without complication, s: 06/18/2021 without long-term current use of insulin Health Maintenance Due Date Last Done Comments [...] Name Priority Date/Time Associated Diagnosis Comme nts CBC WITH DIFF Routine 06/18/2020 10:39 Type 2 diabetes Results for this AM CDT mellitus without procedure a re in complication, the results without long-term section. current use of insulin Essential hypertension PNEUMOCOCCAL VACCINE, Routine 06/18/2020 10:25 Need for vaccin ation 23-VALENT (PNEUMOVAX) AM CDT documented in this encounter Results CBC WITH DIFF (06/18/2020 10:39 AM CDT) Pathologist Sig nature WBC 9.06 4.30 - 11.10 [facility] 10*3/L [facility] RBC 5.28 (H) 3.93 - 5.25 [facility] 10*6/L [facility] HGB 15.2 (H) 11.6 - 15.0 [facility] g/dL [facility] HCT 45.5 (H) 35.7 - 45.2 % [facility] MCV 86.2 80.6 - 95.5 fL [facility] MCH 28.8 25.9 - 32.8 pg [facility] MCHC 33.4 31.6 - 35.1 [facility] g/dL [facility] RDW-SD 38.1 (L) 39.0 - 49.9 fL [facility] RDW-CV 12.1 12.0 - 15.5 % [facility] PLT 296 166 - 358 [facility] 10*3/L [facility] MPV 10.0 9.5 - 12.9 fL [facility] NRBC/100 WBC 0.0 0.0 - 10.0 /100 [facility] WBCs [facility] NRBC x10^3 <0.01 10*3/L [facility] GRAN MAT (NEUT) % 54.0 % [facility] IMM GRAN % 0.30 % [facility] LYMPH % 39.1 % [facility] MONO % 5.2 % [facility] EOS % 0.8 % [facility] BASO % 0.6 % [facility] GRAN MAT x10^3(ANC) 4.90 1.88 - 7.09 [facility] 10*3/uL [facility] IMM GRAN x10^3 0.03 0.00 - 0.06 [facility] 10*3/uL HOSPITAL LABORATORY LYMPH x10^3 3.54 (H) 1.32 - 3.29 [facility] 10*3/uL [facility] MONO x10^3 0.47 0.33 - 0.92 [facility] 10*3/uL [facility] EOS x10^3 0.07 0.03 - 0.39 [facility] 10*3/uL [facility] BASO x10^3 0.05 0.01 - 0.[address]/[facility] LABORATORY Specimen Blood Performing Organization Address City/State/Zipcode Phone Number [facility] CLIA: [id number] [place] [address] documented in this encounter Visit Diagnoses Diagnosis Type 2 diabetes mellitus without complic ation, without long-term current use of insulin - Primary Essential hypertension Unspecified essential hypertension Tinea corporis Dermatophytosis of the body Need for vaccination Need for prophylactic vaccination and in oculation against unspecified single disease documented in this encounter documented as of this encounter
--- OUTSIDE RECORDS SUMMARY | 2020-08-09 17:21 | XMS REPORT | Summary of Care ---
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 [address] [place] [address] [address] Reason for Visit Reason Comments Establish Care Diabetes Rash Rash on Rt Foot Encounter Details Date Type Department Care Team Description 06/18/2020 Office Visit [facility] Family Julienne Lewis FNP Type 2 diabetes mellitus without complic ation, without long-term current use of insulin (Primary Dx); Medicine - [address] Essential hypertension; [address] [place] [address] Tinea corporis; Drive [facility] [place] [phone] Allergies Active Allergy Reactions Severity Noted [...] include visual change (noted by a her round kiln drawer ). Pertinent negatives for diabetes include no [...] being taken. She does not see a fiberglass autobody repairer.Eye exam is current. Allergies Clementina is allergic [...] Left 06/04/2015 Surgeon: Stephen Bucio MD; Location: [facility] Social History Socioeconomic History Marital status: Spouse [...] file Gets together: Not on file Attends evangelical service: Not on file Active member of [...] Plan: CBC WITH DIFF, COMP. METABOLIC PANEL (55439), THYROID STIMULATING HORMONE, LIPID PANEL (37548)(TOTAL CHOLESTEROL, TRIGLYCERIDES, HDL), GLYCOSYLATED HEMOGLOBIN (A1C), glipiZIDE 10 mg tablet, metFORMIN 1,000 mg tablet, CONSULT/REFERRAL PODIATRY Essential hypertension Comment: will initiate therapy with lisinopril, metoprolol added due to tachy cardia Plan: CBC WITH DIFF, COMP. METABOLIC PANEL (96743), THYROID STIMULATING HORMONE, LIPID PANEL (40737)(TOTAL CHOLESTEROL, TRIGLYCERIDES, HDL), lisinopriL 40 mg tablet, [...] of the visit time. If applicable, the [facility] database was accessed to review any controlled substance prescription claims data. The [employer] prescription claims data in [employer] was reviewed to assess patient compliance with the medication treatment plan. documented in this encounter Plan of Treatment Date Type Specialty Care Team Description 09/17/2020 Office Visit Family Medicine Angelika Lewis FNP [address] [address] Name Type Priority Associated Diagnoses Date/Ti me COMP. METABOLIC PANEL LAB Routine Type 2 diabetes irish litus 06/18/2020 10:39 AM (00613) without complication, CDT without long-term current use of insulin Essential hypertension THYROID STIMULATING LAB Routine Type 2 diabetes melli tus 06/18/2020 10:39 AM HORMONE without complication, CDT without long-term current use of insulin Essential hypertension LIPID PANEL (21968)(TOTAL LAB Routine Type 2 diabetes mellitus 06/18/2020 [...] Sig nature WBC 9.06 4.30 - 11.10 [facility] 10*3/L [facility] RBC 5.28 (H) 3.93 - 5.25 [facility] 10*6/L [facility] HGB 15.2 (H) 11.6 - 15.0 [facility] g/dL [facility] HCT 45.5 (H) 35.7 - 45.2 % [facility] MCV 86.2 80.6 - 95.5 fL [facility] MCH 28.8 25.9 - 32.8 pg [facility] MCHC 33.4 31.6 - 35.1 [facility] g/dL [facility] RDW-SD 38.1 (L) 39.0 - 49.9 fL [facility] RDW-CV 12.1 12.0 - 15.5 % [facility] PLT 296 166 - 358 [facility] 10*3/L [facility] MPV 10.0 9.5 - 12.9 fL [facility] NRBC/100 WBC 0.0 0.0 - 10.0 /100 [facility] WBCs [facility] NRBC x10^3 <0.01 10*3/L [facility] GRAN MAT (NEUT) % 54.0 % [facility] IMM GRAN % 0.30 % [facility] LYMPH % 39.1 % [facility] MONO % 5.2 % [facility] EOS % 0.8 % [facility] BASO % 0.6 % [facility] GRAN MAT x10^3(ANC) 4.90 1.88 - 7.09 [facility] 10*3/uL [facility] IMM GRAN x10^3 0.03 0.00 - 0.06 [facility] 10*3/uL [facility] LYMPH x10^3 3.54 (H) 1.32 - 3.29 [facility] 10*3/uL [facility] MONO x10^3 0.47 0.33 - 0.92 [facility] 10*3/uL [facility] EOS x10^3 0.07 0.03 - 0.39 [facility] 10*3/uL [facility] BASO x10^3 0.05 0.01 - 0.[address] LABORATORY Specimen Blood Performing Organization Address City/State/Zipcode Phone Number [facility] CLIA: [id number] [place] [address] documented [...]
--- OUTSIDE RECORDS SUMMARY | 2020-08-09 17:21 | XMS REPORT | Continuity of Care Document ---
:1985 Author Organization [facility] t Address [address] [place] [address] Care Team Providers Name Role Phone Joel SHAIKH Attending Clinician Debbie DUVAL Attending Clinician Problems This patient has no known problems. Allergies, Adverse Reactions, Alerts This patient has no known allergies or adverse reactions. Medications This patient has no known medications. Procedures This patient has no known procedures. Encounters Start End Encounter Admission Attending Care Care Encounter Source Date/Time Date/Time Type Type Clinicians Facility Department ID 2020-07-14 2020-07-14 Final Block Press Operator DANIELA Maldonado [id number] 14:54:50 15:56:23 Visit Chel Joseph [id number] [place] [id number] Cher [id number] [facility] 2020-07-06 2020-07-06 Telephone DANIELA Lewis [id number] 00:00:00 00:00:00 Angelika [place] [id number] [place] [id number] Cher [id number] [facility] [address] 2020-06-18 2020-06-18 Office Debbie [facility] [id number] 09:08:34 10:30:22 Visit Angelika [place] [id number] [place] [id number] Cher [id number] [place] [address] Results This patient has no known results.
--- OUTSIDE RECORDS SUMMARY | 2020-08-09 17:22 | XMS REPORT | Summary of Care ---
:1985 Author Organization [facility] Address [address] [place] [address] Care Team Providers Name Role Phone SIMIN Lewis Primary Care Provider Reason for Referral (Routine) Status Reason Specialty Diagnoses / Referred By Referred To Procedures Contact Contact New Request Dietary and Diagnoses Type 2 diabetes mellitus without complication, without long-term current use of insulin Angelika Lewis, Nutritional Service Procedures CONSULT/REFERRAL NUTRITION [place] [address] [address] Reason for Visit Reason Comments Rx Concern/Question Encounter Details Date Type Department Care Team Description 07/06/2020 Telephone [facility] Julienne Lewis FNP Rx Concern/Question Medicine - [address] [place] [address] Dr [address] [address] [place] [address] [phone] [address] Allergies Active Allergy Reactions Severity Noted Date Comments Iodine Anaphylaxis 06/03/2015 Latex Hives 06/03/2015 Penicillins Anaphylaxis 06/03/2015 documented as of this encounter (statuses as of 07/07/2020) Medications Medication Sig Dispensed Refills Start Date [...] without days. long-term current use of insulin clotrimazole-betametha Apply to 15 g 2 06/18/20202019 Active sone (LOTRISONE) area(s) 2 (two) creamIndications: times daily for Tinea corporis 21 days. documented as of this encounter (statuses as of 07/07/2020) Active Problems Problem Noted Date Right knee pain 11/23/2015 Abscess of left thigh 06/03/2015 documented as of this encounter (statuses as of 07/07/2020) Immunizations Name Administration Dates Next Due Pneumococcal [...] Signs Not on filedocumented in this encounter Miscellaneous Notes Telephone Encounter - Angelika Lewis FNP - 07/07/2020 8:58 AM CSTPleas have patient make a follow up appointment 3 months from when she was seen, for a re- eval of her A1C. A1c is a better indication of control and efficacy of medication. I can make a referral to digital marketing executive in the meal time as lifestyle specifically nutrition helps a great deal with disease control. elephone Encounter - Tamika Pineda - 07/06/2020 4:53 PM CSTReview elephone Encounter - Holly Devine - 07/06/2020 1:54 PM CSTPatient is calling wanting to speak to provider. Medication is not helping in lowering her diabetesand it's causing her to miss work. Please call and advise thanks. documented in this encounter Plan of Treatment Date Type Specialty Care Team Description 09/17/2020 Office Visit Family Medicine Angelika Lewis, LOADER OPERATOR/GROUND LEADER [address] [phone] Health Maintenance Due Date Last Done Comments EYE EXAM 1993 URINE MICROALBUMIN 1993 Depression Screening 1995 FOOT EXAM 2001 DTaP,Tdap,and Td Vaccines (1 - 2002 Tdap) PAP SMEAR 2004 INFLUENZA VACCINE (#1) 2020 HgA1C 12/17/2020 06/18/2020 CREATININE (SERUM) 06/18/2021 06/18/2020, 04/27/2017, 08/03/2015, Additional history exists LDL-C 06/18/2021 06/18/2020 PNEUMOCOCCAL 0-64 YEARS COMBINED 06/18/2021 06/18/2020 SERIES (2 of 3 - PCV13) documented as of this encounter Results Not on filedocumented in this encounter Visit Diagnoses Diagnosis Type 2 diabetes mellitus without complic ation, without long-term current use of insulin - Primary documented in this encounter Insurance Payer Benefit Plan / Group Subscriber ID Effective Dates Phone Address Type LATOYA HOPKINS [id number] 2018-Present Jorge L tapia documented as of this encounter
--- OUTSIDE RECORDS SUMMARY | 2020-08-09 17:22 | XMS REPORT | Summary of Care ---
:1985 Author Organization [facility] Address [address] [place] [address] Care Team Providers Name Role Phone SIMIN Lewis Primary Care Provider Reason for Visit Reason Comments Diabetes Mellitus II (Routine) Status Reason Specialty Diagnoses / Referred By Referred To Procedures Contact Contact Closed Endocrinology Diagnoses Type 2 diabetes mellitus without complication, without long-term current use of insulin Angelika Lewis Imtiaz, Yusra, Diabetes & Metabolism Procedures CONSULT/REFERRAL NUTRITION [facility] [address] [phone] Phone: Fax: Encounter Details Date Type Department Care Team Description 07/14/2020 Chief Ultrasound Technologist Visit [facility] Chel Maldonado R D Type 2 diabetes mellitus without complic ation, without long-term current use of insulin (Primary Dx); Endocrinology- [address] [place] [address] Obesity (BMI 30-39.9) [address], [address] [address] [place], [place] [phone] [address] Allergies Active Allergy Reactions Severity Noted Date Comments Iodine Anaphylaxis 06/03/2015 Latex Hives 06/03/2015 Penicillins Anaphylaxis 06/03/2015 documented as of this encounter (statuses as of 07/14/2020) Medications Medication Sig Dispensed Refills Start Date [...] without days. long-term current use of insulin documented as of this encounter (statuses as of 07/14/2020) Active Problems Problem Noted Date Right knee pain 11/23/2015 Abscess of left thigh 06/03/2015 documented as of this encounter (statuses as of 07/14/2020) Immunizations Name Administration Dates Next Due Pneumococcal [...] been in contact with No / Unsure 07/14/2020 2:52 PM MANUFACTURING MECHANIC someone who was confirmed or suspected to have Coronavirus / COVID-19? documented as of this encounter Last Filed Vital Signs Vital Sign Reading Time Taken Comments Blood Pressure - - Pulse - - Temperature - - Respiratory Rate - - Oxygen Saturation - - Inhaled Oxygen Concentration - - Weight 100.7 kg (222 lb) 07/14/2020 3:00 PM MANUFACTURING MECHANIC Height - - Body Mass Index 35.83 06/18/2020 9:33 AM CDT documented in this encounter Progress Notes Joel, Chel, RD - 07/14/2020 3:00 PM CST Diabetic Education [id number] Name: Clementina Hartley Date: 07/14/2020 Referring Provider: Kvng Lewis Accompanied by: alone Referral Date: 07/07/20 Reason for visit: type 2 diabetes 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 Patientis experiencing very high BG (>200s regularly) and very high BP (180/100) - started end of January. Reviewed most recent clinical note. Ht Readings from Last 1 Encounters: 06/18/20 5' 6" (1.676 m) Wt Readings from Last 1 Encounters: 07/14/20 222 lb (100.7 kg) Body mass index is 35.83 kg/m. HGB A1C (%) Date Value 06/18/2020 7.9 (H) CHOL (mg/dL) Date Value 06/18/2020 148 HDL (mg/dL) Date Value 06/18/2020 47 (L) LDL CHOL (mg/dL) Date Value 06/18/2020 73 TRIG (mg/dL) Date Value 06/18/2020 142 Diabetes Type: Type 2 diabetes, Onset: 2013 Family History of Diabetes: mother's side of the family Previous Diabetes Education: none Diabetes Knowledge/Skill Level: survival Learning Needs Identified by Patient: introduction to diabetes, healthy eating, being active, takingmedication, monitoriing, problem solving, healthy coping and reducing risk Barriers: none Self-Management skills and Diabetes-related behavior education based on the following content areas: Diabetes Disease Process and Treatment Options - Assessment if the patient understanding: needs reviews Definition, types, diagnostic criteria of diabetes, causes, risk factors, symptoms of diabetes, importance of diabetic control, ongoing education, and possible treatment changes/options. Nutritional Management - Assessment of patient understanding: needs reviews Carb consistent meal plan with portion control and limiting sweetened beverages. Explained what foods are considered carbohydrates and what different serving sizes look like using food models and diabetic exchange lists. Discussed using the plate method to portion control meals. Provided patient w/grocery list of healthier items to create meals from. Also provided patient w/carb counting book. Provided patient w/tips on how to eat out healthy and how to reduce amount of refined/simple carbs to help better maintain his BG. Patient has cut out all sugars, but will occasionally use honey. Prior to going to the hospital 3 weeks ago, she was eating a lot of foods that were grab and go, eating out a lot (at work), tried to snack on healthier snacks (vegetable sticks, fruit, cheese and crackers on occasion, candy to help her stay awake). Initial Diet Screen Eating 3 meals/day: yes Breakfast: oatmeal (steel cut) sometimes w/honey and cinnamon or just butter and apple OR 1 wheat bread, 2 eggs, 2 pieces of duong and black coffee Snack: yogurt (albanian w/fruit) or applesauce (unsweetened) Lunch: avocado and sometimes flavored tortillas and deli meat OR salad Snack: nuts, cheese, crackers Dinner: marinara and vegetables, sometimes hamburger meat OR baked chicken/turkey and fresh vegetables Snacks: none OR fruit and whipped cream Beverages: black coffee, unsweet tea (sometimes sweetened w/honey), sometimes lemonade at work Water: 160+ fl oz Frequency of restaurant meals: at work 5-6 days/week Alcohol: once a month (4 budlight crisp or michelob ultra) Physical Activity - Assessment of patient understanding: needs reviews Incorporating activity into lifestyle. Benefits of cardiovascular and resistance training activity on blood sugar and weight management. Current exercise regimen: takes dogs for long walks (brisk pace) 60 minutes Monitoring Blood Glucose - Assessment of patient understanding: needs reviews Reviewed testing technique, times, record keeping, blood sugar targets, and sharps disposal. Recommended testin-2x/day Frequency of testinx/day Fastin, 265 Lunch: 297, 310 Diabetes Medications - Assessment of patient understanding: needs reviews Current Diabetes Medications/Insulin Oral diabetes medication: metformin, glipizide (started these 3 weeks ago) Current Outpatient Medications Medication Sig Dispense Refill glipiZIDE 10 mg tablet Take 1 tablet by mouth daily for 90 days. 30 tablet 2 lisinopriL 40 mg tablet Take 1 tablet by mouth daily for 90 days. 30 tablet 2 metFORMIN 1,000 mg tablet Take 1 tablet by mouth 2 (two) times daily with meals for 90 days. 60 tablet 2 metoprolol succinate XL 25 mg 24 hr tablet Take 1 tablet by mouth daily for 90 days. 30 tablet 2 No current facility-administered medications for this visit. Acute Complications-Prevention, Detection and Treatment - Assessment of patient understanding: needsreviews Hypoglycemia/hyperglycemia risks, causes, signs, symptoms, treatment, prevention, problem solving, and when to call provider, safe driving practices, travel medication ID use, and sick day care. Current Acute Symptoms: Hypoglycemia - none, Hyperglycemia - daily Wallet card/Medical ID: yes Carries Quick Carb: Yes Chronic Complications-Prevention, Detection and Treatment - Assessment of patient understanding: needs reviews Risk reduction strategies for the prevention and treatment of nephropathy, neuropathy, infections, and cardiovascular disease. Essential care guidelines (PCP/dental/eye visits), foot care, signs and symptoms of infection, skin care and hygiene. Recommended vaccines and benefits of smoking cessation. Smokin cigarettes daily (working on quitting) Psychosocial Adjustment and Strategies - Assessment of patient understanding: needs reviews Effects of stress on blood glucose and healthy coping strategies, problem- solving to identify individual stress triggers, tools to use to avoid, alter, or adapt responses, depression risks/symptoms/treatments. Provided with community and support information. Self Management Goals Set By Patient Goal Achievement Healthy Eating I will keep my carbs <15 g per meal and snack (5 times per day). I will snack on non-starchy vegetables (nsv). First visit - New goal Being Active I will add 10 minutes strength training daily. First visit - New goal Problem Solving Add stress relieving activity to daily routine (alexandra or therapist). First visit - New goal Diabetes Self-Management Support (DSMS) Plan List the plan that have been decided upon with the patient to sustain a lifetime of living with diabetes beyond the formal diabetes education process: introduction to diabetes, healthy eating, being active, taking medication, monitoriing, problem solving, healthy coping and reducing risk Educational materials given: What is diabetes, Type I and Type II, Hypoglycemia causes and management, Hyperglycemia causes and management, Hg A1C - Know your number, Diabetics meal planning, Build a balanced meal plan, Cholesterol target range , Diabetic Foot Exam, Diabetic eye complications: Diabetes and your eyes, Diebetic Neuropathy, Low carbohydrate diet, Dash diet, Making healthy fast food choices, Dinning out with diabetes, Reading nutrition lables and Increasing physical activity Supplies Given: Food diary and Ba log book Follow-Up: 3 months Electronically signed by: Chel Maldonado RD 07/14/2020 Time of visit with patient today equaled: Total Time: 60 minutes, of which more than 50% was for counseling and coordination of care. jenn documented in this encounter Plan of Treatment Date Type Specialty Care Team Description 08/14/2020 Office Visit Orthopedic Surgery Amairani German DPM [address] [place], [place] [address] 09/17/2020 Office Visit Family Medicine Angelika Lewis, BODY SHOP SUPERVISOR [address] [address] 10/29/2020 Chief Ultrasound Technologist Visit Endocrinology Diabetes & Chel Maldonado RD Metabolism [address] [place], [place] [address] Health Maintenance Due Date Last Done Comments [...] long-term current use of insulin - Primary Obesity (BMI 30-39.9) Obesity, unspecified documented in this encounter documented as of this encounter
[2020-08-09] MEDS ORDERED: KETOROLAC 30 MG/ML INJ ONE (19:46)
[2020-08-09] MEDS ORDERED: HYDROCODONE/APAP 5/325 MG TAB ONE (20:34)
--- NOTE | 2020-08-09 20:45 | RAD REPORT ---
EXAM DESCRIPTION: RAD - Hip Left 2 View - 08/09/2020 8:33 pm CLINICAL HISTORY: PAIN Fall, pain COMPARISON: No comparisons FINDINGS: No fracture, dislocation or evidence of AVN.
--- NOTE | 2020-08-09 20:46 | EDPHYS ---
Physician Documentation [facility] Name: Clementina Hartley Age: 35 yrs Sex: Female : 1985 Arrival Date: 08/09/2020 Time: 17:34 Bed 24 Private MD: ED Physician Marcus Stuart HPI: 08/10 00:27 This 35 yrs old Female presents to ER via Wheelchair with complaints of Fall tw4 Injury, Knee Injury. 00:27 Details of fall: The patient fell from an upright position, while walking, fall down tw4 stairs. Onset: The symptoms/episode began/occurred yesterday. Associated injuries: The patient sustained left knee, decreased range of motion, painful injury, swelling. Severity of symptoms: At their worst the symptoms were moderate, in the emergency department the symptoms are unchanged. TREE TRIMMER: 08/09 17:53 LMP 08/01/2020 ca1 Historical: - Allergies: 17:52 Iodine; ca1 17:52 Latex, Natural Rubber; ca1 17:52 PENICILLINS; ca1 - PMHx: 17:52 allergies; ca1 17:54 Diabetes - NIDDM; Hypertension; ca1 - PSHx: 17:52 Cholecystectomy; right foot ligament repair; ca1 - Immunization history:: Adult Immunizations up to date, Flu vaccine is not up to date. - Social history:: Smoking status: Patient reports the use of cigarette tobacco products, denies chronic smoking, but will smoke occasionally. - Immunization history: Last tetanus immunization: unknown. ROS: 08/10 00:27 Constitutional: Negative for fever, chills, and weight loss, Eyes: Negative for injury, tw4 pain, redness, and discharge, Cardiovascular: Negative for chest pain, palpitations, and edema, Respiratory: Negative for shortness of breath, cough, wheezing, and pleuritic chest pain, Abdomen/GI: Negative for abdominal pain, nausea, vomiting, diarrhea, and constipation, Skin: Negative for injury, rash, and discoloration, Neuro: Negative for headache, weakness, numbness, tingling, and seizure. MS/extremity: Positive for injury or acute deformity, decreased range of motion, deformity, swelling, tenderness, of the left knee. Exam: 00:27 Constitutional: This is a well developed, well nourished patient who is awake, alert, tw4 and in no acute distress. Head/Face: Normocephalic, atraumatic. Chest/axilla: Normal chest wall appearance and motion. Nontender with no deformity. No lesions are appreciated. Cardiovascular: Regular rate and rhythm with a normal S1 and S2. No gallops, murmurs, or rubs. Normal PMI, no JVD. No pulse deficits. Respiratory: Lungs have equal breath sounds bilaterally, clear to auscultation and percussion. No rales, rhonchi or wheezes noted. No increased work of breathing, no retractions or nasal flaring. Abdomen/GI: Soft, non-tender, with normal bowel sounds. No distension or tympany. No guarding or rebound. No evidence of tenderness throughout. Neuro: Awake and alert, GCS 15, oriented to person, place, time, and situation. Cranial nerves II-XII grossly intact. Motor strength 5/5 in all extremities. Sensory grossly intact. Cerebellar exam normal. Normal gait. 00:27 Musculoskeletal/extremity: Extremities: noted in the medial aspect of left knee and left knee: decreased ROM, pain, swelling, tenderness, ROM: limited active range of motion due to pain, limited passive range of motion due to pain, in the medial aspect of left knee and left knee, Circulation is intact in all extremities. Vital Signs: 06 17:49 BP 135 / 102; Pulse 105; Resp 18 S; Temp 97(TE); Pulse Ox 98% on R/A; Weight 99.34 kg ca1 (R); Height 5 ft. 5 in. (165.10 cm) (R); Pain 10/10; 20:20 BP 131 / 75; Pulse 90; Resp 17; Pulse Ox 98% ; rr5 21:13 BP 125 / 80; Pulse 95; Resp 19; Pulse Ox 99% ; rr5 21:40 BP 132 / 75; Pulse 92; Resp 16; Pulse Ox 98% ; rr5 17:49 Body Mass Index 36.44 (99.34 kg, 165.10 cm) ca1 Denzel Coma Score: 19:25 Eye Response: spontaneous(4). Verbal Response: oriented(5). Motor Response: obeys rr5 commands(6). Total: 15. 21:13 Eye Response: spontaneous(4). Verbal Response: oriented(5). Motor Response: obeys rr5 commands(6). Total: 15. Trauma Score (Adult): 19:25 Eye Response: spontaneous(1); Verbal Response: oriented(1); Motor Response: obeys rr5 commands(2); Systolic BP: > 89 mm Hg(4); Respiratory Rate: 10 to 29 per min(4); [place] Score: 15; Trauma Score: 12 21:13 Eye Response: spontaneous(1); Verbal Response: oriented(1); Motor Response: obeys rr5 commands(2); Systolic BP: > 89 mm Hg(4); Respiratory Rate: 10 to 29 per min(4); [place] Score: 15; Trauma Score: 12 MDM: 19:13 Patient medically screened. tw4 08/10 00:27 Differential diagnosis: closed head injury, contusion, fracture, laceration, multiple tw4 trauma, sprain, strain. Data reviewed: vital signs, nurses notes. Data interpreted: Pulse oximetry: Interpretation: normal. Counseling: I had a detailed discussion with the patient and/or guardian regarding: the historical points, exam findings, and any diagnostic results supporting the discharge/admit diagnosis, lab results. Special discussion: I discussed with the patient/guardian in detail that at this point there is no indication for admission to the hospital. It is understood, however, that if the symptoms persist or worsen the patient needs to return immediately for re-evaluation. 08/09 19:31 Order name: Knee Left 3 View XRAY tw4 08/09 19:31 Order name: Hip Left 2 View XRAY tw4 08/09 20:49 Order name: Knee Immobilizer; Complete Time: 21:09 tw4 08/09 21:09 Order name: Crutches; Complete Time: 21:09 rr5 Administered Medications: 08/09 19:37 Drug: TORadol 60 mg Route: IM; Site: right gluteus; rr5 20:20 Follow up: Response: No adverse reaction; No change in condition; Pain is unchanged, rr5 physician notified 20:29 Drug: [place] 5 mg-325 mg 1 tabs {Note: rass 0.} Route: PO; rr5 21:30 Follow up: Response: No adverse reaction; RASS: Alert and Calm (0) rr5 Disposition: 08/09/20 20:45 Discharged to Home. Impression: Sprain of medial collateral ligament of left knee, Contusion of left hip. - Condition is Stable. - Discharge Instructions: Contusion, Hip Pain, Knee Sprain, [id number]. - Prescriptions for Ibuprofen 800 mg Oral Tablet - take 1 tablet by ORAL route every 8 hours As needed take with food; 30 tablet. Tramadol 50 mg Oral Tablet - take 1 tablet by ORAL route every 8 hours as needed; 12 tablet. - Medication Reconciliation Form, Thank You Letter, Antibiotic Education, Prescription Opioid Use, Work release form form. - Follow up: Private Physician; When: Upon discharge from the Emergency Department; Reason: Recheck today's complaints, Continuance of care, Re-evaluation by your physician. Follow up: Jeyson Maria MD; When: Upon discharge from the Emergency Department; Reason: Recheck today's complaints, Continuance of care, Re-evaluation by your physician. Follow up: Oscar Spicer MD; When: Upon discharge from the Emergency Department; Reason: Recheck today's complaints, Continuance of care, Re-evaluation by your physician. Follow up: Agustin Allison MD; When: Upon discharge from the Emergency Department; Reason: Recheck today's complaints, Continuance of care, Re-evaluation by your physician. - Problem is new. - Symptoms have improved. Signatures: Dispatcher [employer] EDMS Marcus Stuart MD MD tw4 Kem Bautista RN RN rr5 Nneka Sandoval RN RN ca1 Corrections: (The following items were deleted from the chart) 21:28 20:45 08/09/2020 20:45 Discharged to Home. Impression: Sprain of medial collateral tw4 ligament of left knee; Contusion of left hip. Condition is Stable. Forms are Medication Reconciliation Form, Thank You Letter, Antibiotic Education, Prescription Opioid Use. Follow up: Private Physician; When: Upon discharge from the Emergency Department; Reason: Recheck today's complaints, Continuance of care, Re-evaluation by your physician. Problem is new. Symptoms have improved. tw4 21:41 21:28 08/09/2020 20:45 Discharged to Home. Impression: Sprain of medial collateral rr5 ligament of left knee; Contusion of left hip. Condition is Stable. Discharge Instructions: Contusion, Hip Pain, Knee Sprain, [id number]. Prescriptions for Ibuprofen 800 mg Oral Tablet - take 1 tablet by ORAL route every 8 hours As needed take with food; 30 tablet, Tramadol 50 mg Oral Tablet - take 1 tablet by ORAL route every 8 hours as needed; 12 tablet. and Forms are Medication Reconciliation Form, Thank You Letter, Antibiotic Education, Prescription Opioid Use, Work release form. Follow up: Private Physician; When: Upon discharge from the Emergency Department; Reason: Recheck today's complaints, Continuance of care, Re-evaluation by your physician. Follow up: Jeyson Maria; When: Upon discharge from the Emergency Department; Reason: Recheck today's complaints, Continuance of care, Re-evaluation by your physician. Follow up: Oscar Spicer; When: Upon discharge from the Emergency Department; Reason: Recheck today's complaints, Continuance of care, Re-evaluation by your physician. Follow up: Agustin Allison; When: Upon discharge from the Emergency Department; Reason: Recheck today's complaints, Continuance of care, Re-evaluation by your physician. Problem is new. Symptoms have improved. tw4
--- NOTE | 2020-08-09 20:46 | ER ---
Nurse's Notes [facility] Name: Clementina Hartley Age: 35 yrs Sex: Female : 1985 Arrival Date: 08/09/2020 Time: 17:34 Bed 24 Private MD: Diagnosis: Sprain of medial collateral ligament of left knee;Contusion of left hip Presentation: 08/09 17:49 Chief complaint: Patient states: Last night, 2100, I fell off the stairs, 4 steps from ca1 the bottom. Landed on L knee and L hip. Reports pain on L knee and L hip. Coronavirus screen: Client denies travel out of the [place] in the last 14 days. At this time, the client does not indicate any symptoms associated with coronavirus-19. Ebola Screen: Patient negative for fever greater than or equal to 101.5 degrees Fahrenheit, and additional compatible Ebola Virus Disease symptoms Patient denies exposure to infectious person. Patient denies travel to an Ebola-affected area in the 21 days before illness onset. No symptoms or risks identified at this time. Initial Sepsis Screen: Does the patient meet any 2 criteria? No. Patient's initial sepsis screen is negative. Does the patient have a suspected source of infection? No. Patient's initial sepsis screen is negative. Risk Assessment: Do you want to hurt yourself or someone else? Patient reports no desire to harm self or others. Onset of symptoms was August 09, 2020. 17:49 Method Of Arrival: Wheelchair ca1 17:49 Acuity: ELI 4 ca1 20:00 Care prior to arrival: cold compress. [facility] 20:00 Mechanism of Injury: Fall down 4 steps. Trauma event details: Injury occurred in the [address], Injury occurred: August 08, 2020. MEDICAL ADVISOR: 17:53 LMP 08/01/2020 ca1 Trauma Activation: Not Applicable Physician: ED Physician; Name: ; Notified At: ; Arrived At: Physician: General Surgeon; Name: ; Notified At: ; Arrived At: Physician: Radiology; Name: ; Notified At: ; Arrived At: Physician: Respiratory; Name: ; Notified At: ; Arrived At: Physician: Lab; Name: ; Notified At: ; Arrived At: Historical: - Allergies: 17:52 Iodine; ca1 17:52 Latex, Natural Rubber; ca1 17:52 PENICILLINS; ca1 - PMHx: 17:52 allergies; ca1 17:54 Diabetes - NIDDM; Hypertension; ca1 - PSHx: 17:52 Cholecystectomy; right foot ligament repair; ca1 - Immunization history:: Adult Immunizations up to date, Flu vaccine is not up to date. - Social history:: Smoking status: Patient reports the use of cigarette tobacco products, denies chronic smoking, but will smoke occasionally. - Immunization history: Last tetanus immunization: unknown. Screenin:24 Abuse screen: Denies threats or abuse. Denies injuries from another. Tuberculosis rr5 screening: No symptoms or risk factors identified. 19:25 Nutritional screening: No deficits noted. Fall Risk Fall in past 12 months (25 points). rr5 Gait- Impaired (20 pts.). Total Cui Fall Scale indicates High Risk Score (45 or more points). Fall prevention measures have been instituted. Side Rails Up X 2 Frequent Obs/Assessments Occuring As available patient and family educated on Fall Prevention Program and Strategies. Primary Survey: 19:15 NO uncontrolled hemorrhage observed. A: The patient is alert. Airway: patent, Trachea rr5 midline. 19:15 Breathing/Chest: Respiratory pattern: regular, Respiratory effort: spontaneous, rr5 unlabored, Breath sounds: clear, bilaterally. Chest inspection: symmetrical rise and fall of the chest. Circulation: Pulses: palpable left dorsalis pedis artery. Disability Alert. Exposure/Environment: There is no evidence of uncontrolled external bleeding. Obvious injury(ies) are noted at this time: left knee A warming method has been applied: A warm blanket has been provided to the patient. 20:15 Reassessment Airway Airway Patent Breathing/Chest Respiratory pattern Regular rr5 Respiratory effort Spontaneous Unlabored Circulation Pulses Palpable Disability Alert. Secondary Survey: 19:22 HEENT: Head No injury/deformity Face No injury/deformity. Musculoskeletal: Swelling rr5 present in left knee. Assessment: 19:23 General: Appears in no apparent distress. uncomfortable, Behavior is calm, cooperative, rr5 appropriate for age. Pain: Complains of pain in left knee Pain currently is 10 out of 10 on a pain scale. Quality of pain is described as aching, Pain began suddenly, Is intermittent. Neuro: Level of Consciousness is awake, alert, obeys commands, Oriented to person, place, time, situation. EENT: No signs and/or symptoms were reported regarding the EENT system. Cardiovascular: Capillary refill < 3 seconds Patient's skin is warm and dry. Respiratory: Airway is patent Respiratory effort is even, unlabored, Respiratory pattern is regular, symmetrical. GI: No signs and/or symptoms were reported involving the gastrointestinal system. : No signs and/or symptoms were reported regarding the genitourinary system. Derm: Skin is intact, is healthy with good turgor, Skin temperature is warm. Musculoskeletal: Circulation, motion, and sensation intact. Capillary refill < 3 seconds, Reports pain in left lower back and left leg. 19:36 Reassessment: explained the action and side effect of medication. patient denies she is rr5 . 20:20 Reassessment: Patient appears in no apparent distress at this time. Patient is alert, rr5 oriented x 3, equal unlabored respirations, skin warm/dry/pink. ED provider aware with order made and carried out Patient states symptoms have not improved. 21:10 Reassessment: ordered for discharge,awaiting for review by provider patient. rr5 21:40 Reassessment: Patient appears in no apparent distress at this time. Patient is alert, rr5 oriented x 3, equal unlabored respirations, skin warm/dry/pink. discharge instruction given and explained without complaints made. Vital Signs: 17:49 BP 135 / 102; Pulse 105; Resp 18 S; Temp 97(TE); Pulse Ox 98% on R/A; Weight 99.34 kg ca1 (R); Height 5 ft. 5 in. (165.10 cm) (R); Pain 10/10; 20:20 BP 131 / 75; Pulse 90; Resp 17; Pulse Ox 98% ; rr5 21:13 BP 125 / 80; Pulse 95; Resp 19; Pulse Ox 99% ; rr5 21:40 BP 132 / 75; Pulse 92; Resp 16; Pulse Ox 98% ; rr5 17:49 Body Mass Index 36.44 (99.34 kg, 165.10 cm) ca1 Denzel Coma Score: 19:25 Eye Response: spontaneous(4). Verbal Response: oriented(5). Motor Response: obeys rr5 commands(6). Total: 15. 21:13 Eye Response: spontaneous(4). Verbal Response: oriented(5). Motor Response: obeys rr5 commands(6). Total: 15. Trauma Score (Adult): 19:25 Eye Response: spontaneous(1); Verbal Response: oriented(1); Motor Response: obeys rr5 commands(2); Systolic BP: > 89 mm Hg(4); Respiratory Rate: 10 to 29 per min(4); [place] Score: 15; Trauma Score: 12 21:13 Eye Response: spontaneous(1); Verbal Response: oriented(1); Motor Response: obeys rr5 commands(2); Systolic BP: > 89 mm Hg(4); Respiratory Rate: 10 to 29 per min(4); [place] Score: 15; Trauma Score: 12 ED Course: 17:34 Patient arrived in ED. ds1 17:52 Triage completed. ca1 17:52 Arm band placed on right wrist. ca1 19:07 Marcus Stuart MD is Attending Physician. tw4 19:08 Kem Bautista RN is Primary Nurse. rr5 19:24 Patient has correct armband on for positive identification. Bed in low position. Call rr5 light in reach. 19:24 No provider procedures requiring assistance completed. rr5 20:02 X-ray(s) taken. rr5 20:34 Knee Left 3 View XRAY In Process Unspecified. EDMS 20:34 Hip Left 2 View XRAY In Process Unspecified. EDMS 21:09 Knee immobilizer applied on left knee. crutches. rr5 21:15 Patient did not have IV access during this emergency room visit. rr5 21:16 Patient maintains SpO2 saturation greater than 95% on room air. Thermoregulation: warm rr5 blanket given to patient. 21:28 Jeyson Maria MD is Referral Physician. tw4 21:28 Oscar Spicer MD is Referral Physician. tw4 21:28 Agustin Allison MD is Referral Physician. tw4 Administered Medications: 19:37 Drug: TORadol 60 mg Route: IM; Site: right gluteus; rr5 20:20 Follow up: Response: No adverse reaction; No change in condition; Pain is unchanged, rr5 physician notified 20:29 Drug: [place] 5 mg-325 mg 1 tabs {Note: rass 0.} Route: PO; rr5 21:30 Follow up: Response: No adverse reaction; RASS: Alert and Calm (0) rr5 Intake: 21:15 PO: 0ml; Total: 0ml. rr5 Outcome: 20:45 Discharge ordered by . tw4 21:14 Discharged to home via wheelchair, with family. rr5 21:14 Condition: stable 21:14 Discharge instructions given to patient, Instructed on discharge instructions, follow up and referral plans. medication usage, Demonstrated understanding of instructions, follow-up care, medications, Prescriptions given X 2. 21:15 N/APatient's length of stay extended due to rr5 21:41 Patient left the ED. rr5 Signatures: Dispatcher [employer] [facility] VenturaLania enriquez ds1 Marcus Stuart MD MD tw4 Kem Bautista, RN RN rr5 Nneka Sandoval RN RN ca1
--- NOTE | 2020-08-09 20:46 | RAD REPORT ---
EXAM DESCRIPTION: RAD - Knee Left 3 View - 08/09/2020 8:33 pm CLINICAL HISTORY: PAIN Fall, pain COMPARISON: No comparisons FINDINGS: No acute fracture or dislocation seen. Mild soft tissue swelling is seen anterior to the p atella. No significant intra-articular joint fluid.
[2020-08-13 15:02] VITALS: TEMP 97
[2020-08-13 15:04] VITALS: BP 125/80; O2SAT 99
== END 2020-08-09 21:41 | disposition home or self-care (01) ==
LOC: ER 17:18
DX: S83.412A Sprain of medial collateral ligament of left knee, initial encounter (principal); S70.02XA Contusion of left hip, initial encounter; W10.9XXA Fall (on) (from) unspecified stairs and steps, initial encounter; Y93.01 Activity, walking, marching and hiking; Y92.9 Unspecified place or not applicable; Z72.0 Tobacco use; Z88.0 Allergy status to penicillin; Z91.040 Latex allergy status; Z91.048 Other nonmedicinal substance allergy status; I10 Essential (primary) hypertension
CPT/HCPCS: 96372; 99284

== ENCOUNTER 2020-08-17 02:56 | Observation (INO) | payer OTHER ==
--- OUTSIDE RECORDS SUMMARY | 2020-08-17 02:58 | XMS REPORT | Continuity of Care Document ---
:1985 Author Organization [facility] t Address [address] [place] [address] Care Team Providers Name Role Phone Kelsy Nance Attending Clinician Problems This patient has no known problems. Allergies, Adverse Reactions, Alerts This patient has no known allergies or adverse reactions. Medications This patient has no known medications. Procedures This patient has no known procedures. Encounters Start End Encounter Admission Attending Care Care Encounter Source Date/Time Date/Time Type Type Clinicians Facility Department ID 2020-08-13 2020-08-13 Office DANIELA Gonzalez [id number] 13:39:10 14:07:15 Visit [facility] [id number] Surgical [id number] Specialti [id number] [address] 2020-08-13 2020-08-13 Letter Carlos MAHANY [id number] 00:00:00 00:00:00 (Out) [facility] [id number] Surgical [id number] Specialti [id number] [address] Results This patient has no known results.
--- OUTSIDE RECORDS SUMMARY | 2020-08-17 02:59 | XMS REPORT | Summary of Care ---
:[address] [facility] - [facility] Address [address] [place] [address] Care Team Providers Name Role Phone SIMIN Lewis Primary Care Provider Reason for Visit Reason Comments New Patient Knee Pain left fall down the stairs x 7 days 04/13 Encounter Details Date Type Department Care Team Description 08/13/2020 Office Visit [facility] Orthopaedic Agustin Russell MD [address] [place] [address] [place] [address] Grade 2 sprain of Surgery- Farshad Mcghee, FATIMAH [address] [place] [address] medial collateral [address], ligament of left knee [address] (Primary Dx) [place] [address] Allergies Active Allergy Reactions Severity Noted Date Comments Iodine Anaphylaxis 06/03/2015 Latex Hives 06/03/2015 Penicillins Anaphylaxis 06/03/2015 documented as of this encounter (statuses as of 08/13/2020) Medications Medication Sig Dispensed Refills Start Date [...] as of this encounter (statuses as of 08/13/2020) Active Problems Problem Noted Date Right knee pain 11/23/2015 Abscess of left thigh 06/03/2015 documented as of this encounter (statuses as of 08/13/2020) Immunizations Name Administration Dates Next Due Pneumococcal Polysaccharide, PPSV23 (PNEUMOVAX) 06/18/2020 documented as of this encounter Social History Tobacco Use Types Packs/Day Years Used Date Current Every Day Smoker 0.25 Smokeless Tobacco: Never Used Alcohol Use Drinks/Week oz/Week Comments Yes Sex Assigned at Date Recorded Not on file COVID-19 Exposure Response Date Recorded In the last month, have you been in contact Unable to assess 08/13/2020 1:43 PM 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 documented as of this encounter Last Filed Vital Signs Vital Sign Reading Time Taken Comments Blood Pressure 145/97 08/13/2020 1:43 PM CUSTOMER COMPLAINT SERVICE SUPERVISOR Pulse 93 08/13/2020 1:43 PM CUSTOMER COMPLAINT SERVICE SUPERVISOR Temperature 35.9 C (96.7 F) 08/13/2020 1:43 PM CUSTOMER COMPLAINT SERVICE SUPERVISOR Respiratory Rate 18 08/13/2020 1:43 PM CUSTOMER COMPLAINT SERVICE SUPERVISOR Oxygen Saturation - - Inhaled Oxygen Concentration - - Weight 99.3 kg (219 lb) 08/13/2020 1:43 PM CUSTOMER COMPLAINT SERVICE SUPERVISOR Height 165.1 cm (5' 5") 08/13/2020 1:43 PM CUSTOMER COMPLAINT SERVICE SUPERVISOR Body Mass Index 36.44 08/13/2020 1:43 PM CUSTOMER COMPLAINT SERVICE SUPERVISOR documented in this encounter Progress Notes Farshad Gonzalez, PAC - 08/13/2020 2:00 PM CST Cc: Chief Complaint Patient presents with New Patient Knee Pain left fall down the stairs x 7 days 04/13 Clementinajeanette Hartley is a 35 year old female. Fell down 6 stairs on 08/08/2020 at her brother's growth department[facility]. Pain is 8/10 in intensity today she arrived wearing a knee immobilizer. At the emergency Department they were concerned about a sprain and possiblemedial collateral ligament tear. She was also prescribed 800 mg ibuprofen. She takes is about twice a day. Allergies Clementina is allergic to iodine; latex; and pcn [penicillins]. Medications Outpatient Medications Prior to Visit Medication Sig Dispense Refill glipiZIDE 10 mg [...] for 90 days. 30 tablet 2 No facility-administered medications prior to visit. Histories Past Medical History: Diagnosis Date Diabetes mellitus Hypertension Past Surgical History: Procedure Laterality Date CHOLECYSTECTOMY 05-26-15 INCISION AND DRAINAGE OF ABSCESS Left 06/04/2015 Surgeon: Stephen Bucio MD; Location: [facility] Social History Socioeconomic History Marital status: Spouse [...] file Gets together: Not on file Attends yarsanism service: Not on file Active member of [...] Grandmother Hypertension Maternal Grandmother Review of Systems All other systems reviewed and are negative. Vital Signs There were no vitals taken for this visit. Physical Exam Musculoskeletal: Comments: Physical Exam Constitutional: oriented to person, place, and time. appears well-developed and well-nourished. HENT: Head: Normocephalic and atraumatic. Right Ear: External ear normal. Left Ear: External ear normal. Eyes: Conjunctivae are normal. Neck: Normal range of motion. No strabismus Neck supple. Cardiovascular: Normal rate and regular rhythm. Pulmonary/Chest: Normal respiratory rate equal chest rise and fall in no apparent distress Abdominal: Abdomen nondistended nontender Neurological: alert and oriented to person, place, and time. No asymmetry Skin: Skin is warm and dry. Psychiatric: normal mood and affect. behavior is normal. Judgment and thought content normal. Nursing note and vitals reviewed. Left knee she does have pain in her medial joint line exacerbated with valgus stress testing she also has some popliteal discomfort stable anterior posterior drawer for the anterior posterior cruciate ligaments she does have some point tenderness to palpation of the medial patellar facet. X-rays 3 views of the left knee obtained on 08/09/2020 at [facility] findings: No acute fracture or dislocation seen. Mild soft tissue swelling is seen in the anterior to the patella. No significant intra-articular joint fluid. Dictated by Dr. Juan x-rays reviewed concur with radiologist report also noted some degenerative change in the lateral compartment Assessment/Plan 1. Grade 2 sprain of medial collateral ligament of left knee She will continue with the 100 mg ibuprofen and start on a straight leg raise exercise program to maintain quadriceps tone we will go from the knee immobilizer into a hinged knee brace she will work onstraight leg raises and wear her hinged knee brace day and night for the next 3-4 weeks when she is p ain-free she can gradually work her way out of the hinged knee brace is a possibility she could've torn cartilage in her knee if this is not resolving after a month of conservative management she can call we will get an MRI and follow-up with the results.. Patient was instructed in straight leg raise exercises. Instructed to lift heel off the ground 4 inches with leg straight. After setting the leg down completely relax her quadriceps, once her quadriceps is relaxed perform another repetition. Advised to do repetitions in sets of 10. Until they can do 8sets of 10 pain-free perform exercises 3 times a day. That's 240 straight leg raises per day. Once the patient is able to do 240 straight leg raises pain-free start over with a 2 pound ankle weights. After 240 leg raises pain-free with a 2 pound ankle weight, progress to terminal knee extensions. Allow need to bend 30 degrees and then extending to straight with light weight on the ankle Can have a note for work that says limited standing and walking with a hinged knee brace for one month. She was placed in a extra large rebound type hinged knee brace. documented in this encounter Plan of Treatment Date Type Specialty Care Team Description 08/14/2020 Office Visit Orthopedic Surgery Amairani German, FELIX [address] [place], [place] [address] 09/17/2020 Office Visit Family Medicine Angelika Lewis, SIMIN [address] [address] 10/29/2020 Route Process Administrator Visit Endocrinology Diabetes & Chel Maldonado, RD Metabolism [address] [place] [address] Health Maintenance Due Date Last Done Comments EYE EXAM 1993 URINE MICROALBUMIN 1993 FOOT EXAM 2001 DTaP,Tdap,and Td Vaccines (1 - 2002 Tdap) PAP SMEAR 2004 INFLUENZA VACCINE (#1) 2020 HgA1C 12/17/2020 06/18/2020 CREATININE (SERUM) 06/18/2021 06/18/2020, 04/27/2017, 08/03/2015, Additional history exists LDL-C 06/18/2021 06/18/2020 PNEUMOCOCCAL 0-64 YEARS COMBINED 06/18/2021 06/18/2020 SERIES (2 of 3 - PCV13) Depression Screening 08/13/2021 08/13/2020 documented as of this encounter Results Not on filedocumented in this encounter Visit Diagnoses Diagnosis Grade 2 sprain of medial collateral liga ment of left knee - Primary documented in this encounter documented as of this encounter
--- OUTSIDE RECORDS SUMMARY | 2020-08-17 02:59 | XMS REPORT | Summary of Care ---
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 documented as of this encounter Last Filed Vital Signs Not on filedocumented in this encounter Plan of Treatment Date Type Specialty Care Team Description 08/14/2020 Office Visit Orthopedic Surgery Amairani German, DPM [address] [place], [place] [address] 09/17/2020 Office Visit Family Medicine Angelika Lewis, ACCOUNT TECHNICIAN [address] [phone] 10/29/2020 Sugar Mill Worker Visit Endocrinology Diabetes & JoelChel myles, RD Metabolism [address] [place] [address] [phone] Health Maintenance Due Date Last Done Comments [...] Effective Dates Phone Address Type LATOYA HOPKINS [phone] 2020-Present Jorge L tapia documented as of this encounter
--- OUTSIDE RECORDS SUMMARY | 2020-08-17 02:59 | XMS REPORT | Summary of Care ---
:1985 Author Organization [facility] - [facility] Address [address] [place] [address] Care Team Providers Name Role Phone SIMIN Lewis Primary Care Provider Reason for Visit Reason Comments New Patient Knee Pain left fall down the stairs x 7 days 04/13 Encounter Details Date Type Department Care Team Description 08/13/2020 Office Visit [facility] Orthopaedic Agustin Russell MD [address] [place] [address] [place] [address] Grade 2 sprain of Surgery- Farshad Mcghee, FATIMAH [address] [place] [address] medial collateral [address], ligament of left knee [address] (Primary Dx) [place] [address] Allergies Active Allergy Reactions Severity Noted [...] contact Unable to assess 08/13/2020 1:43 PM 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 documented as of this encounter Last Filed Vital Signs Vital Sign Reading Time Taken Comments Blood Pressure 145/97 08/13/2020 1:43 PM PREPARED FOODS TEAM LEADER Pulse 93 08/13/2020 1:43 PM PREPARED FOODS TEAM LEADER Temperature 35.9 C (96.7 F) 08/13/2020 1:43 PM PREPARED FOODS TEAM LEADER Respiratory Rate 18 08/13/2020 1:43 PM PREPARED FOODS TEAM LEADER Oxygen Saturation - - Inhaled Oxygen Concentration - - Weight 99.3 kg (219 lb) 08/13/2020 1:43 PM PREPARED FOODS TEAM LEADER Height 165.1 cm (5' 5") 08/13/2020 1:43 PM PREPARED FOODS TEAM LEADER Body Mass Index 36.44 08/13/2020 1:43 PM PREPARED FOODS TEAM LEADER documented in this encounter Progress Notes Farshad Gonzalez, PAC - 08/13/2020 2:00 PM CST Cc: Chief Complaint Patient presents with New Patient Knee Pain left fall down the stairs x 7 days 04/13 Clementinajeanette Hartley is a 35 year old female. Fell down 6 stairs on 08/08/2020 at her brother's growth [facility]. Pain is 8/10 [...] Left 06/04/2015 Surgeon: Stephen Bucio MD; Location: [facility] Social History Socioeconomic History Marital status: Spouse [...] file Gets together: Not on file Attends rastafarian service: Not on file Active member of [...] the left knee obtained on 08/09/2020 at [facility] findings: No acute fracture or dislocation seen. [...] Visit Orthopedic Surgery Amairani German, FELIX [address] [place], [place] [address] 09/17/2020 Office Visit Family Medicine Angelika Lewis, SIMIN [address] [address] 10/29/2020 Key Account Executive Visit Endocrinology Diabetes & Chel Maldonado, RD Metabolism [address] [place] [address] Health Maintenance Due Date Last [...]
[2020-08-17 03:51] LABS: Protime INR 1.03
[2020-08-17 03:54] LABS: Absolute Lymphocytes (CBC) 3.1 K/uL (0.7-4.9); Basophils % 0.6 % (0-1.3); Hematocrit 42.4 % (36.0-45.0); Lymphocytes % 36.5 % (15.3-44.8); MPV 8.6 fL (7.6-11.3); RBC Red Blood Cell Count 4.93 M/uL (3.86-4.86)
[2020-08-17 04:09] LABS: ALT/SGPT 24 U/L (12-78); AST/SGOT 19 U/L (15-37); Albumin 3.4 g/dL (3.4-5.0); Alkaline Phosphatase 104 U/L (45-117); BUN Blood Urea Nitrogen 13 mg/dL (7-18); Bicarbonate 29 mmol/L (21-32); Bilirubin Direct < 0.1 mg/dL (0-0.2); Bilirubin Total 0.4 mg/dL (0.2-1.0); Glucose Level 241 mg/dL (74-106); NT PRO-BNP 37 pg/mL (<125); Potassium 3.4 mmol/L (3.5-5.1); Protein, Total 7.5 g/dL (6.4-8.2); Sodium Level 140 mmol/L (136-145); Troponin (Emerg Dept Use Only) < 0.02 ng/mL (0.0-0.045)
--- NOTE | 2020-08-17 04:19 | ER ---
Nurse's Notes [facility] Name: Clementina Hartley Age: 35 yrs Sex: Female : 1985 Arrival Date: 08/17/2020 Time: 02:57 Bed 3 Private MD: Diagnosis: Chest pain, unspecified;Syncope Presentation: 08/17 03:04 Chief complaint: Patient states: chest pain since 1730 and shortness of breath, passed dm5 out in the kitchen prior to arrival, denies hitting head. Was seen here for a fall on Monday or Monday. Coronavirus screen: Client denies travel out of the [place] in the last 14 days. Ebola Screen: Patient negative for fever greater than or equal to 101.5 degrees Fahrenheit, and additional compatible Ebola Virus Disease symptoms Patient denies exposure to infectious person. Patient denies travel to an Ebola-affected area in the 21 days before illness onset. No symptoms or risks identified at this time. Initial Sepsis Screen: Does the patient meet any 2 criteria? No. Patient's initial sepsis screen is negative. Does the patient have a suspected source of infection? No. Patient's initial sepsis screen is negative. Risk Assessment: Do you want to hurt yourself or someone else? Patient reports no desire to harm self or others. Onset of symptoms was August 17, 2020. 03:04 Acuity: ELI 3 dm5 03:04 Method Of Arrival: Ambulatory dm5 Triage Assessment: 03:12 General: Appears comfortable, Behavior is calm, cooperative. Pain: Complains of pain in rv chest. EENT: No signs and/or symptoms were reported regarding the EENT system. Neuro: Level of Consciousness is awake, alert, obeys commands, Oriented to person, place, time, situation. Cardiovascular: Patient's skin is warm and dry. Rhythm is regular. Respiratory: Airway is patent Respiratory effort is even, unlabored, Breath sounds are clear bilaterally. Derm: Skin is intact. Historical: - Allergies: 03:07 Iodine; dm5 03:07 Latex, Natural Rubber; dm5 03:07 PENICILLINS; dm5 - Home Meds: 03:07 Metoprolol Tartrate Oral [Active]; Lipitor Oral [Active]; Glipizide Oral [Active]; dm5 Metformin Oral [Active]; - PMHx: 03:07 allergies; Diabetes - NIDDM; Hypertension; dm5 - Immunization history:: Adult Immunizations up to date. - Social history:: Smoking status: unknown. Screenin:11 Abuse screen: Denies threats or abuse. Denies injuries from another. Nutritional rv screening: No deficits noted. Tuberculosis screening: No symptoms or risk factors identified. Fall Risk None identified. Assessment: 03:14 Pain: Pain does not radiate. rv 03:14 Pain: Pain began suddenly. rv 03:30 General: Appears comfortable, Behavior is calm, cooperative. rv 03:30 Neuro: Level of Consciousness is awake, alert, obeys commands, Oriented to person, rv place, time, situation. Cardiovascular: Rhythm is regular. Respiratory: Airway is patent Respiratory effort is even, unlabored, Breath sounds are clear bilaterally. Derm: Skin is intact. 05:35 Reassessment: PATIENT UPDATED ON LENGTH OF WAIT. rv 05:38 Reassessment: Patient and/or family updated on plan of care and expected duration. Pain rv level reassessed. Patient is alert, oriented x 3, equal unlabored respirations, skin warm/dry/pink. Pain: Current management is completely effective. Neuro: Level of Consciousness is awake, alert, obeys commands, Oriented to person, place, time, situation. Cardiovascular: Rhythm is sinus rhythm. Respiratory: Airway is patent Respiratory effort is even, unlabored, Breath sounds are clear bilaterally. 07:00 Reassessment: Hospitalist at bedside. jl7 07:32 Reassessment: Patient appears in no apparent distress at this time. Patient is alert, vg1 oriented x 3, equal unlabored respirations, skin warm/dry/pink. Pain: Complains of pain in left side of chest that radiates to left shoulder. Pain currently is 8 out of 10 on a pain scale. Vital Signs: 03:04 Temp 98.3; dm5 03:14 BP 157 / 110; Pulse 105; Resp 20; Pulse Ox 100% ; ea 04:00 BP 146 / 99; Pulse 106; Resp 16; Pulse Ox 100% ; rv 05:00 BP 153 / 99; Pulse 96; Resp 16; Pulse Ox 100% on R/A; rv 07:33 BP 142 / 97; Pulse 93; Resp 16; Temp 98.0; Pulse Ox 97% on R/A; vg1 ED Course: 02:57 Patient arrived in ED. am2 03:00 Rojas Richard MD is Attending Physician. 7 03:05 Triage completed. dm5 03:11 Gonsalo Alonzo RN is Primary Nurse. rv 03:11 Arm band placed on right wrist. Patient placed in the treatment room, on a stretcher, rv Patient notified of wait time. 03:12 Inserted saline lock: 20 gauge in right antecubital area, using aseptic technique. rv Blood collected. Patient maintains SpO2 saturation greater than 95% on room air. 03:13 Patient has correct armband on for positive identification. Placed in gown. Bed in low rv position. Call light in reach. Side rails up X 1. cardiac monitor on. Pulse ox on. NIBP on. 03:14 No provider procedures requiring assistance completed. rv 03:24 XRAY Chest (1 view) In Process Unspecified. EDMS 03:52 CT Head C Spine In Process Unspecified. EDMS 04:18 Kem James MD is Hospitalizing Provider. [facility] 07:03 Patient admitted, IV remains in place. ea 07:08 Primary Nurse role handed off by Gonsalo Alonzo RN bd 07:27 Anna Pizarro RN is Primary Nurse. vg1 Administered Medications: 04:29 Drug: Aspirin Chewable Tablet 162 mg Route: PO; ea 04:40 Follow up: Response: No adverse reaction ea 04:29 Drug: Nitroglycerin 0.4 mg Route: Sublingual; ea 04:40 Follow up: Response: No adverse reaction; Pain is decreased ea Outcome: 04:19 Decision to Hospitalize by Provider. 7 07:02 Instructed on the need for admit, Demonstrated understanding of instructions. ea 07:40 Admitted to Tele accompanied by tech, via stretcher, room 224, Report called to HERMELINDO AVERY vg1 07:40 Condition: stable 07:47 Patient left the ED. vg1 Signatures: Dispatcher [employer] EDMS Tamika Deshpande Deana, RN RN dm5 Kim Reyes RN RN jl7 Briana Strauss am2 Carlie Elizondo RN RN ea Vicente, Ronaldo, RN RN rv Garcia, Victoria, RN RN vg1 Rojas Richard MD MD [facility]
--- NOTE | 2020-08-17 04:19 | EDPHYS ---
Physician Documentation [facility] Name: Clementina Hartley Age: 35 yrs Sex: Female : 1985 Arrival Date: 08/17/2020 Time: 02:57 Bed 3 Private MD: ED Physician Rojas Richard HPI: 08/17 03:20 This 35 yrs old Female presents to ER via Ambulatory with complaints of Chest mh7 Pain, Numbness Of Arm - left, Blurred Vision. 03:20 The patient or guardian reports chest pain that is located primarily in the substernal mh7 area. The pain radiates to the left arm, back. Associated signs and symptoms: Pertinent positives: shortness of breath, syncope, Pertinent negatives: abdominal pain, cough, diaphoresis, dizziness, headache, lower extremity pain, lower extremity swelling, lightheadedness, nausea, near syncope, palpitations, recent travel, vomiting. The chest pain is described as a heaviness. Duration: The patient or guardian reports multiple episodes, that are intermittent, that wax and wane, with no pattern. Modifying factors: The symptoms are alleviated by nothing. the symptoms are aggravated by nothing. Severity of pain: At its worst the pain was moderate last night, in the emergency department the pain has improved mildly. Historical: - Allergies: 03:07 Iodine; dm5 03:07 Latex, Natural Rubber; dm5 03:07 PENICILLINS; dm5 - Home Meds: 03:07 Metoprolol Tartrate Oral [Active]; Lipitor Oral [Active]; Glipizide Oral [Active]; dm5 Metformin Oral [Active]; - PMHx: 03:07 allergies; Diabetes - NIDDM; Hypertension; dm5 - Immunization history:: Adult Immunizations up to date. - Social history:: Smoking status: unknown. ROS: 03:20 Constitutional: Negative for fever, chills, and weight loss, ENT: Negative for injury, mh7 pain, and discharge, Neck: Negative for injury, pain, and swelling, Abdomen/GI: Negative for abdominal pain, nausea, vomiting, diarrhea, and constipation, : Negative for injury, bleeding, discharge, and swelling, Skin: Negative for injury, rash, and discoloration, Psych: Negative for depression, anxiety, suicide ideation, homicidal ideation, and hallucinations, Allergy/Immunology: Negative for hives, rash, and allergies, Endocrine: Negative for neck swelling, polydipsia, polyuria, polyphagia, and marked weight changes, Hematologic/Lymphatic: Negative for swollen nodes, abnormal bleeding, and unusual bruising. Exam: 03:49 Constitutional: This is a well developed, well nourished patient who is awake, alert, mh7 and in no acute distress. Head/Face: Normocephalic, atraumatic. Eyes: Pupils equal round and reactive to light, extra-ocular motions intact. Lids and lashes normal. Conjunctiva and sclera are non-icteric and not injected. Cornea within normal limits. Periorbital areas with no swelling, redness, or edema. 03:49 Respiratory: Lungs have equal breath sounds bilaterally, clear to auscultation and percussion. No rales, rhonchi or wheezes noted. No increased work of breathing, no retractions or nasal flaring. Abdomen/GI: Soft, non-tender, with normal bowel sounds. No distension or tympany. No guarding or rebound. No evidence of tenderness throughout. Back: No spinal tenderness. No costovertebral tenderness. Full range of motion. Skin: Warm, dry with normal turgor. Normal color with no rashes, no lesions, and no evidence of cellulitis. MS/ Extremity: Pulses equal, no cyanosis. Neurovascular intact. Full, normal range of motion. Neuro: Awake and alert, GCS 15, oriented to person, place, time, and situation. Cranial nerves II-XII grossly intact. Motor strength 5/5 in all extremities. Sensory grossly intact. Cerebellar exam normal. Normal gait. Psych: Awake, alert, with orientation to person, place and time. Behavior, mood, and affect are within normal limits. 03:49 Neck: External neck: tenderness, that is moderate, of the left mid cervical area and left trapezius, C-spine: vertebral tenderness, is not appreciated, crepitus, is not appreciated, Thyroid: appears normal, Trachea: is midline with no obvious abnormalities, ROM/movement: Meningeal signs: are not present, nuchal rigidity, is not appreciated. 03:49 Chest/axilla: Inspection: normal, Palpation: tenderness, that is mild, of the mid-sternal area, that partially reproduces the patient's complaints, Axilla: are normal, Lymph nodes: lymphadenopathy is not appreciated. 03:49 Cardiovascular: Rate: tachycardic, Rhythm: regular, Pulses: no pulse deficits are appreciated, Heart sounds: normal, normal S1and S2, Edema: is not appreciated, JVD: is not appreciated. 04:20 ECG was reviewed by the Attending Physician. [facility] Vital Signs: 03:04 Temp 98.3; dm5 03:14 BP 157 / 110; Pulse 105; Resp 20; Pulse Ox 100% ; ea 04:00 BP 146 / 99; Pulse 106; Resp 16; Pulse Ox 100% ; rv 05:00 BP 153 / 99; Pulse 96; Resp 16; Pulse Ox 100% on R/A; rv 07:33 BP 142 / 97; Pulse 93; Resp 16; Temp 98.0; Pulse Ox 97% on R/A; vg1 MDM: 04:16 Differential diagnosis: acute myocardial infarction, acute pericarditis, anxiety, mh7 coronary artery disease chest wall pain, congestive heart failure costochondritis, pericarditis, pneumonia, pneumothorax. HEART Score: History: Highly Suspicious (2), ECG: Normal (0), Age: < or = 45 years (0), Risk Factors: > or = 3 Risk factors for atherosclerotic disease (2), [Hypercholesterolemia] [Hypertension] [DM] Troponin: < or = 1 x Normal Limit (0), Total Score = 4. Data reviewed: vital signs, nurses notes, old medical records, lab test result(s), cardiac enzymes, CBC, electrolytes, urinalysis, urine drug screen, EKG, radiologic studies, CT scan, plain films. Data interpreted: Pulse oximetry: on room air is 100 %. Interpretation: normal. Counseling: I had a detailed discussion with the patient and/or guardian regarding: the historical points, exam findings, and any diagnostic results supporting the discharge/admit diagnosis, the presence of at least one elevated blood pressure reading (>120/80) during this emergency department visit, lab results, radiology results, the need for further work-up and treatment in the hospital. Response to treatment: the patient's symptoms have markedly improved after treatment. 04:19 Patient medically screened. [facility] 08/17 03:14 Order name: Basic Metabolic Panel; Complete Time: 04:10 ea 08/17 03:14 Order name: CBC with Diff; Complete Time: 04:05 ea 08/17 03:14 Order name: LFT's; Complete Time: 04:10 08/17 03:14 Order name: Magnesium; Complete Time: 04:10 08/17 03:14 Order name: NT PRO-BNP; Complete Time: 04:10 08/17 03:14 Order name: PT-INR; Complete Time: 05:05 08/17 03:14 Order name: Troponin (emerg Dept Use Only); Complete Time: 04:10 08/17 03:16 Order name: UDS [facility] 08/17 03:17 Order name: ETOH Level; Complete Time: 04:14 7 08/17 04:12 Order name: Urine --Ancillary (enter results); Complete Time: 05:29 tt3 08/17 04:13 Order name: Urine Dipstick--Ancillary (enter results) [facility] 08/17 04:54 Order name: D-Dimer; Complete Time: 05:05 EDMS 08/17 05:05 Order name: COVID-19 08/17 03:14 Order name: XRAY Chest (1 view) 08/17 03:14 Order name: EKG; Complete Time: 03:15 08/17 03:14 Order name: Cardiac monitoring; Complete Time: 03:15 08/17 03:14 Order name: EKG - Nurse/Tech; Complete Time: 03:15 08/17 03:14 Order name: IV Saline Lock; Complete Time: 03:15 08/17 03:14 Order name: Labs collected and sent; Complete Time: 03:15 08/17 03:14 Order name: O2 Per Protocol; Complete Time: 03:15 08/17 03:14 Order name: O2 Sat Monitoring; Complete Time: 03:15 08/17 03:16 Order name: Urine Dipstick-Ancillary (obtain specimen); Complete Time: 05:50 [facility] 08/17 03:16 Order name: Urine Test (obtain specimen); Complete Time: 05:50 [facility] 08/17 03:17 Order name: CT Head C Spine [facility] 08/17 06:25 Order name: SARS-COV-2 RT PCR EDMS EC:20 Rate is 105 beats/min. Rhythm is regular, Sinus tachycardia. QRS [place] is Normal. [place] mh7 interval is normal. QRS interval is normal. QT interval is normal. No Q waves. T waves are Normal. No ST changes noted. Clinical impression: Sinus tachycardia. Administered Medications: 04:29 Drug: Aspirin Chewable Tablet 162 mg Route: PO; ea 04:40 Follow up: Response: No adverse reaction ea 04:29 Drug: Nitroglycerin 0.4 mg Route: Sublingual; ea 04:40 Follow up: Response: No adverse reaction; Pain is decreased ea Disposition: 08/17/20 04:19 Hospitalization ordered by eKm James for Observation. Preliminary diagnosis are Chest pain, unspecified, Syncope. - Bed requested for Telemetry/MedSurg (observation). - Status is Observation. vg1 - Condition is Stable. - Problem is new. - Symptoms have improved. Signatures: Dispatcher [employer] EDMS Glendy High, RN RN dm5 Sae Fletcher, SAP BOBJ DEVELOPER-C SAP BOBJ DEVELOPER-Cla1 Leah Pizarro, RN RN Carlie Elizondo, RN RN Gonsalo Connor, RN HERMELINDO Anna Pizarro RN RN vg1 Rojas Richard MD MD 7 Corrections: (The following items were deleted from the chart) 04:54 04:30 D-DIMER+COAG.LAB.BRZ ordered. EDNC EDMS 06:28 04:19 Hospitalization Ordered by Kem James MD for Observation. Preliminary cg diagnosis is Chest pain, unspecified; Syncope. Bed requested for Telemetry/MedSurg (observation). Status is Observation. Condition is Stable. Problem is new. Symptoms have improved. mh7 07:47 06:28 08/17/2020 04:19 Hospitalization Ordered by Kem James MD for Observation. vg1 Preliminary diagnosis is Chest pain, unspecified; Syncope. Bed requested for Telemetry/MedSurg (observation). Status is Observation. Condition is Stable. Problem is new. Symptoms have improved. cg
[2020-08-17] MEDS ORDERED: NITROGLYCERIN 0.4 MG/TAB SL ONE (04:39)
[2020-08-17] MEDS ORDERED: ASPIRIN 81 MG CHEWABLE TABLET ONE (04:39)
--- NOTE | 2020-08-17 04:47 | P.HP ---
Certification for Inpatient Patient admitted to: Observation With expected LOS: <2 Midnights Patient will require the following post-hospital care: None Practitioner: I am a practitioner with admitting privileges, knowledge of patient current condition, hospital course, and medical plan of care. Services: Services provided to patient in accordance with Admission requirements found in Title 42 Section 412.3 of the Code of Federal Regulations <Sae Fletcher - Last Filed: 08/17/20 04:41> Patient History Date of Service: 08/17/20 Primary Care Provider: Jake Hodge Reason for admission: Chest pain, syncope History of Present Illness: 35-year-old female with history of hypertension, hyperlipidemia, diabetes mellitus type 2 presents the emergency department for chest pain and syncope.. Patient reports that all day yesterday she is having intermittent chest pressure radiating to her back associated with diaphoresis, shortness of breath, nausea. Patient reports getting out of bed as she was not feeling right and thought her blood sugar may be low, walking to the kitchen and having synco pal episode. Patient presented to the emergency department still complaining of chest pressure to the anterior chest wall radiating to the back, patient in mildly tachycardic with a rate around 110 and mildly hypertensive. Patient worked up in the ED, EKG without acute changes lab significant for mildly elevated blood glucose 241 potassium 3.4. Troponin negative D-dimer currently pending. Patient is allergic to iodine. Chest x-ray unremarkable. Patient without previous cardiac workup. Patient was given aspirin in the emergency department. When I saw the patient in the emergency department she is still complaining of chest pain she rated at a 10/10 described as pressure-like radiating to the back associated with some mild shortness of breath and nausea. Pain is not exacerbated or relieved by anything in particular. Patient was given nitroglycerin sublingual x1 which did provide some relief for her chest pressure. Patient be admitted for further evaluation and management. - Past Medical/Surgical History -: Hypertension -: Diabetes mellitus type 2 -: Hyperlipidemia -: Cholecystectomy Psychosocial/ Personal History: Patient currently works at [employer] and lives with her significant other - Family History Mother -: Hypertension Father -: Heart disease - Social History Smoking Status: Current every day smoker (Patient reports smoking approximately 1 cigarette per day) Counseled patient to stop smoking for: less than 10 minutes Alcohol use: Yes CD- Drugs: No Caffeine use: Yes Place of Residence: Home <Sae Fletcher - Last Filed: 08/17/20 04:41> Date of Service: 08/17/20 <Kem James - Last Filed: 08/17/20 20:03> Allergies iodine [Iodine] Allergy (Mild, Verified 11/15/11 14:50) Hives latex [Latex] Allergy (Mild, Verified 11/15/11 14:50) Hives Penicillins Allergy (Mild, Verified 11/15/11 14:50) Hives/Rash Latex, Natural Rubber Allergy (Unverified 09/07/14 23:18) Unknown Iodine-Iodi Allergy (Uncoded 03/27/15 01:37) Unknown Iodine-Iodin Allergy (Uncoded 08/05/15 18:04) Unknown IODINE; IODINE CONTAINING Allergy (Uncoded 09/07/14 23:18) Unknown seafood Allergy (Uncoded 09/07/14 23:18) Unknown Review of Systems General: Chills Respiratory: Shortness of Breath, SOB with Excertion Cardiovascular: Chest Pain, Other (syncope) <Sae Fletcher - Last Filed: 08/17/20 04:41> Physical Examination - Physical Exam General: Alert, In no apparent distress HEENT: Atraumatic, PERRLA, Mucous membr. moist/pink Neck: Supple, 2+ carotid pulse no bruit, No LAD Respiratory: Clear to auscultation bilaterally, Normal air movement Cardiovascular: Regular rate/rhythm, Normal S1 S2 Gastrointestinal: Normal bowel sounds, No tenderness Musculoskeletal: No tenderness Integumentary: No rashes Neurological: Normal speech, Normal strength at 5/5 x4 extr, Normal tone, Normal affect - Studies Laboratory Data (last 24 hrs) 08/17/20 03:15: PT 12.1, INR 1.03 08/17/20 03:15: WBC 8.6, Hgb 14.3, Hct 42.4, Plt Count 250 08/17/20 03:15: Sodium 140, Potassium 3.4 L, BUN 13, Creatinine 0.73, Glucose 241 H, Magnesium 2.0, Total Bilirubin 0.4, AST 19, ALT 24, Alkaline Phosphatase 104 <Sae Fletcher - Last Filed: 08/17/20 04:41> - Studies Laboratory Data (last 24 hrs) 08/17/20 03:15: PT 12.1, INR 1.03 08/17/20 03:15: WBC 8.6, Hgb 14.3, Hct 42.4, Plt Count 250 08/17/20 03:15: Sodium 140, Potassium 3.4 L, BUN 13, Creatinine 0.73, Glucose 241 H, Magnesium 2.0, Total Bilirubin 0.4, AST 19, ALT 24, Alkaline Phosphatase 104 <Kem James - Last Filed: 08/17/20 20:03> Assessment and Plan - Plan Assessment Chest pain with syncope-rule out ACS/PE DMII HTN HLD Plan Chest pain with syncope-rule out ACS/PE: Trend troponins, D-dimer pending. If elevated will cover with full-dose Lovenox and will need to obtain V/Q scan as patient is allergic to iodine. Cardiology consult in place, monitor on t elemetry. NPO at this time in case cardiology prefers intervention. DMII: A.c. HS Accu-Cheks, sliding scale insulin therapy, will obtain A1c level. HTN: Obtain and continue home medications. HLD: Obtain and continue home medications. Check lipid panel. Discharge Plan: Home Plan to discharge in: 24 Hours - Advance Directives Does patient have a Living Will: No Does patient have a Durable POA for Healthcare: No - Code Status/Comfort Care Code Status Assessed: Yes (full code) Critical Care: No Time Spent Managing Pts Care (In Minutes): 55 <Sae Fletcher - Last Filed: 08/17/20 04:41> - Plan Plan of care discussed with Sae Fletcher, and I agree with the management plan as noted above. <Kem James - Last Filed: 08/17/20 20:03>
[2020-08-17 05:06] LABS: Barbiturates NEGATIVE (NEGATIVE); Benzodiazepines NEGATIVE (NEGATIVE); Cocaine NEGATIVE (NEGATIVE); METHAMPHETAM POSITIVE (NEGATIVE); Methadone NEGATIVE (NEGATIVE); Opiates NEGATIVE (NEGATIVE); Phencyclidine NEGATIVE (NEGATIVE); THC Cannibis NEGATIVE (NEGATIVE)
[2020-08-17 05:14] LABS: Urine Specific Gravity >1.030 (1.005-1.030)
[2020-08-17 05:14] LABS: Urine Blood NEGATIVE (NEG); Urine Glucose 3+ (NEG); Urine Protein NEGATIVE (NEG); Urine Specific Gravity >1.030 (1.005-1.030); Urine pH 5.5 (5.0-7.0)
--- NOTE | 2020-08-17 07:46 | RAD REPORT ---
EXAM DESCRIPTION: Ewelina Single View08/17/2020 3:24 am CLINICAL HISTORY: Chest pain COMPARISON: 2014 FINDINGS: 12 millimeter nodular opacity left upper lobe The remainder of the lungs appear clear. Heart is normal size IMPRESSION: A 12 millimeter nodular opacity left upper lobe may represent a pulmonary nodule or be r elated to costal cartilage from the first anterior left rib. It is recommended that the patient eithe r have oblique views of the chest or a CT scan for further evaluation
[2020-08-17] MEDS: METOPROLOL TAR 25 MG TAB PO SCH ×2 (08:07→17:11)
[2020-08-17] MEDS ORDERED: NITROGLYCERIN 0.4 MG/TAB SL PRN (08:07)
[2020-08-17] MEDS ORDERED: MORPHINE 2 MG/ML SYR IV PRN (08:07)
[2020-08-17] MEDS ORDERED: ONDANSETRON 4 MG/2 ML VIAL IV PRN (08:07)
[2020-08-17] MEDS: INSULIN -REGULAR HUMAN 50 UNIT/0.5 ML ML SQ SCH ×2 (08:07→11:37)
[2020-08-17] MEDS ORDERED: ACETAMINOPHEN 500 MG TAB PO PRN (08:07)
[2020-08-17] MEDS ORDERED: KCL 20 MEQ/100 mL IVPB 20 MEQ/100 ML BAG IV SCH (09:00)
[2020-08-17] MEDS ORDERED: POTASSIUM CL 40 MEQ in NA CHLORIDE 0.9% 500 ML IV SCH (09:00)
[2020-08-17 10:21] VITALS: BMI 36.4
[2020-08-17] MEDS ORDERED: NA CHLORIDE 0.9% 250 ML ONE (10:22)
[2020-08-17 10:43] LABS: HDL Cholesterol 42 mg/dL (40-60); LDL Cholesterol, Calculated 54 (<130); Troponin I < 0.02 ng/mL (0.0-0.045)
[2020-08-17] MEDS ORDERED: REGADENOSON 0.4 MG/5 ML SYR IV ONE (10:58)
--- NOTE | 2020-08-17 13:30 | RAD REPORT ---
EXAM DESCRIPTION: NM - Rest Stress Cardiac Imaging - 08/17/2020 1:19 pm CLINICAL HISTORY: CP Chest pain. COMPARISON: No comparisons TECHNIQUE: The patient was administered approximately 10mCi of Tc 99m Sestamibi prior to resting SPE CT imaging of the heart. The patient was then administered approximately 30 mCi of Tc 99m Sestamibi f ollowing exercise or pharmacologic stress. Multiplanar SPECT images were reviewed. FINDINGS: No stress induced ischemic defect is seen to suggest stress induced ischemia. No fixed def ect is seen to suggest hibernating myocardium or scarred myocardium. The end diastolic volume is 80 ml, the end systolic volume is 27 ml, and the ejection fraction is 67 %. IMPRESSION: No stress induced ischemia.
[2020-08-17] MEDS ORDERED: GLUCAGON 1 MG/VIAL IM PRN (15:48)
[2020-08-17] MEDS ORDERED: D50W 25 GM/50 ML SYRINGE IV PRN (15:48)
[2020-08-17] MEDS ORDERED: INSULIN -REGULAR HUMAN 50 UNIT/0.5 ML ML SQ SCH (16:30)
[2020-08-17 16:34] VITALS: O2SAT 100
[2020-08-17 17:04] VITALS: BP 144/96; TEMP 97.3
[2020-08-17] MEDS ORDERED: ATORVASTATIN 40 MG TAB PO SCH (21:00)
--- NOTE | 2020-08-18 08:21 | TREADPHA ---
DX: ACUTE CORNARY SYNDROME RULE OUT Date of Study: 08/17/2020 Ht: 5' 5 " Wt: 219 lb 0 oz Consulting Physician: ELI MEDICATIONS: ASPIRIN, LIPITOR, LOPRESSOR, NITROSTAT HISTORY: HYPERTENSION, DIABETES MELLITUS PHYSICIAL EXAMINATION: RESTING B.P.: 107/83 RESTING H.R.: 87 RESTING EKG: WITHIN NORMAL LIMITS PROTOCOL: PHARMACOLOGIC EXERCISE TIME: 3:30 B.P. AT [place] STRESS: 133/85 IMPRESSION: LEXISCAN INJECTED. CARDIOLITE INJECTED (SEE NUCLEAR MEDICINE REPORT). MINIMAL CHEST PAIN REPORTED. NO SUPRAVENTRICULAR TACHYCARDIA. NO VENTRICULAR TACHYCARDIA. NO ARRHYTHMIA. NO CHANGES WITH LEXISCAN STRESS.
--- NOTE | 2020-08-18 08:23 | ECHO ---
HEIGHT: 5 ft 5 in WEIGHT: 219 lb 0 oz DATE OF STUDY: 08/17/[address]: Sae Fletcher NP 2-DIMENSIONAL: YES M.MODE: YES DOPPLER: YES COLOR FLOW: YES TDS: PORTABLE: DEFINITY: BUBBLE STUDY: DIAGNOSIS: RULE OUT ACUTE CORNARY SYNDROME CARDIAC HISTORY: CATHERIZATION: NO SURGERY: NO PROSTHETIC VALVE: NO PACEMAKER: NO MEASUREMENTS (cm) DIASTOLIC (NORMALS) SYSTOLIC (NORMALS) IVSd 1.0 (0.6-1.2) LA Diam 2.9 (1.9-4.0) LVEF 55-60% LVIDd 3.3 (3.5-5.7) LVIDs 2.0 (2.0-3.5) %FS 39% LVPWd 1.1 (0.6-1.2) Ao Diam 2.8 (2.0-3.7) 2 DIMENSIONAL ASSESSMENT: RIGHT ATRIUM: NORMAL LEFT ATRIUM: NORMAL RIGHT VENTRICLE: NORMAL LEFT VENTRICLE: NORMAL TRICUSPID VALVE: NORMAL MITRAL VALVE: NORMAL PULMONIC VALVE: NORMAL AORTIC VALVE: NORMAL PERICARDIAL EFFUSION: NONE AORTIC ROOT: NORMAL LEFT VENTRICULAR WALL MOTION: NORMAL DOPPLER/COLOR FLOW: NORMAL COMMENTS: NORMAL LEFT VENTRICULAR EJECTION FRACTION OF 55-60%. NORMAL WALL MOTION. TECHNOLOGIST: AISHA GORMAN
[2020-08-18] MEDS ORDERED: ASPIRIN EC 81 MG TAB PO SCH (09:00)
--- NOTE | 2020-08-18 09:52 | RAD REPORT ---
EXAM DESCRIPTION: CT - Head C Spine Mpr Wo Con - 08/17/2020 4:10 am CLINICAL HISTORY: Syncope, Fall COMPARISON: None available TECHNIQUE: Axial CT of the head obtained from the skull apex to the skull base without contrast. Axi al CT images of the cervical spine obtained from the skull base through the thoracic inlet. Sagittal and coronal reformatted images available. FINDINGS: CT head: No acute intracranial hemorrhage identified. No mass, mass effect, shift of the midline, abnormal ext ra-axial fluid collection or CT evidence of acute ischemic change identified. The ventricular system is unremarkable. No acute abnormalities of the supratentorial white matter, basal ganglia, cerebell um, or brainstem. The visualized paranasal sinuses and the mastoids are clear. No skull fracture identified. Visualized orbits and globes are unremarkable. Cervical CT: Straightening of the cervical lordosis may be secondary to patient positioning. The atlantoaxial, a tlantodental, and occipitoatlantal intervals are preserved. No fracture identified. Vertebral body height preserved. Prevertebral soft tissues are unremarkable. Mild multilevel loss of intervertebral disc height with endplate spondylosis. Visualized skull base is intact. No fracture of the visualized facial bones. Visualized mastoid air c ells and paranasal sinuses are well aerated. Visualized thyroid is unremarkable. No cervical lymphadenopathy. No pneumothorax in the visualized lung apices. IMPRESSION: 1. No acute intracranial abnormality. 2. No acute fracture or subluxation of the cervical spine. 3. Mild multilevel degenerative change of the cervical spine. This exam was performed according to our departmental dose-optimization program, which includes autom ated exposure control, adjustment of the mA and/or kV according to patient size and/or use of iterati ve reconstruction technique. Electronically signed by: Michael Shields 08/17/2020 4:02 AM ELECTROMEDICAL EQUIPMENT REPAIRER Due to temporary technical issues with the PACS/Fluency reporting system, reports are being signed by the in house radiologist without review as a courtesy to ensure prompt reporting. The interpreting r adiologist is fully responsible for the content of the report.
== END 2020-08-17 17:50 | disposition home or self-care (01) ==
LOC: ER 02:56 → ERHOLD 04:46 → 2ND 07:40
PROVIDERS: ADMIT Hospitalist; ATTEND Hospitalist
DX: R07.9 Chest pain, unspecified (principal); R55 Syncope and collapse; R06.02 Shortness of breath; R11.0 Nausea; Z20.828 Contact with and (suspected) exposure to other viral communicable diseases; I10 Essential (primary) hypertension; E11.9 Type 2 diabetes mellitus without complications; E78.5 Hyperlipidemia, unspecified; F17.210 Nicotine dependence, cigarettes, uncomplicated; Z79.84 Long term (current) use of oral hypoglycemic drugs
CPT/HCPCS: 36415; 70450; 71045; 72125; 78452; 80048; 80061; 80076; 80307; 80320; 81003; 81025; 82947; 83036; 83735; 83880; 84439; 84443; 84484; 85025; 85379; 85610; 93005; 93017; 93306; 99285; A9500; J2785; J3480; J7040; J7050; U0003

== ENCOUNTER 2022-02-14 18:43 | Emergency (ER) | payer OTHER ==
--- OUTSIDE RECORDS SUMMARY | 2022-02-14 18:46 | XMS REPORT | Continuity of Care Document ---
:1985 Author Organization [facility] [place] t Address [address] [place] [address] Care Team Providers Name Role Phone PCP, DOES NOT HAVE A Primary Care Physician Unavailable Trae Durant DO Attending Clinician ONEL Attending Clinician Unavailable Christine REED Attending Clinician Unavailable DEBBIE Attending Clinician Unavailable Vick HARRIS Attending Clinician Unavailable Carlos SHERIDAN S Attending Clinician Kinjal Russell MD Attending Clinician Kinjal RUSSELL Attending Clinician Unavailable Onel RD Attending Clinician Debbie WOOD CAULKER Attending Clinician Lab, Fam Pob I Attending Clinician Unavailable Doctor Unassigned, Name Attending Clinician Unavailable Kelsy De Guzman MD Attending Clinician Kinjal COOK Attending Clinician Unavailable Kinjal Cook APN Attending Clinician Kinjal COOK Admitting Clinician Unavailable Payers Payer Name Policy Type Policy Number Effective Date Expiration Date S ource Problems Condition Condition Condition Status Onset Resolution Last Treating Co mments Source Name Details Category Date Date Treatment Clinician Date Right knee Right knee Disease Active 2015-0 U nivers pain pain 3-21 ity of 00:00: [place] [address] [facility] [place] Abscess of Abscess of Disease Active 2014-0 U nivers left thigh left thigh 9-30 it y of 00:00: [place] [address] [facility] [place] Allergies, Adverse Reactions, Alerts Allergy Allergy Status Severity Reaction(s) Onset Inactive Treating Comm ents Source Name Type Date Date Clinician Penicill Propensi Active Anaphylaxis U nivers ins ty to 9-30 ity of adverse 00:00: [place] reaction 00 Medical s Branch IODINE DRUG Active Anaphylaxis Unive rs INGREDI 9-30 ity of 00:00: [place] 00 Medical Branch LATEX DRUG Active Hives Univers INGREDI 9-30 ity of 00:00: [place] 00 Medical Branch PENICILL Drug Active Anaphylaxis Uni vers INS Class 9-30 ity of 00:00: [place] [facility] Iodine Propensi Active Anaphylaxis Uni vers ty to 9-30 ity of adverse 00:00: [place] reaction Medical s Branch Latex Propensi Active Hives Univers ty to 9-30 ity of adverse 00:00: [place] reaction 00 Medical s Branch Social History Social Habit Start Date Stop Date Quantity Comments Source Exposure to Unable to assess Univers ity of SARS-CoV-2 (event) [facility] Tobacco use and 2020-06-18 2020-06-18 Never used Universit y of exposure 00:00:00 00:00:00 [facility] Cigarettes smoked 2020-06-18 2020-06-18 Univers ity of current (pack per 00:00:00 00:00:[address] [facility] ) - Reported Branch Alcohol intake 2020-06-18 2020-06-18 Current drinker Unive rsity of 00:00:00 00:00:00 of alcohol [facility] (finding) Branch Sex [birth year] At [birth year] Universit y of 00:00:00 00:00:00 [facility] Smoking Status Start Date Stop Date Source Current every day smoker 2020-06-18 00:00:00 Uni versity of [facility] Medications Ordered Filled Start Stop Current Ordering Indication Dosage Frequency Signature Comments Components Source Medication Medication Date Date Medication? Clinician (SIG) Name Name metFORMIN 2019-09 2020- No 500mg Take 500 Un ramesh 500 mg 0-15 10-15 mg by ity of tablet 15:05: 00:00 mouth 2 [place] 41 :00 (two) Medical times Branch daily with meals. metFORMIN 2019-09- No 500mg Take 500 Un ramesh 500 mg 0-15 10-15 mg by ity of tablet 15:05: 00:00 mouth 2 [place] 41 :00 (two) Medical times Branch daily with meals. lisinopriL 2019-09- No [id number] 40mg Take 1 Univers 40 mg 0-15 01-14 tablet by ity of tablet 00:00: 05:59 mouth [place] 00 :00 daily for Medical 90 days. [place] metoprolol 2019-09- No [id number] 25mg Take 1 Univers succinate 0-15 01-14 tablet by ity of XL 25 mg 24 00:00: 05:59 [place] tablet 00 :00 daily for Medic al 90 days. [place] glipiZIDE 2019-09- No [id number] 10mg Take 1 Univers 10 mg 0-15 01-14 tablet by ity of tablet 00:00: 05:59 mouth [place] 00 :00 daily for Medical 90 days. [place] metFORMIN 2019-09- No [id number] 1000mg Take 1 Univers 1,000 mg 0-15 01-14 tablet by ity o f tablet 00:00: 05:59 mouth 2 [place] 00 :00 (two) Medical times [place] daily with meals for 90 days. lisinopriL 2019-09- No [id number] 40mg Take 1 Univers 40 mg 0-15 01-14 tablet by ity of tablet 00:00: 05:59 mouth [place] 00 :00 daily for Medical 90 days. [place] metoprolol 2019-09- No [id number] 25mg Take 1 Univers succinate 0-15 01-14 tablet by ity of XL 25 mg 24 00:00: 05:59 [place] tablet 00 :00 daily for Medic al 90 days. [place] glipiZIDE 2019-09- No [id number] 10mg Take 1 Univers 10 mg 0-15 01-14 tablet by ity of tablet 00:00: 05:59 mouth [place] 00 :00 daily for Medical 90 days. [place] metFORMIN 2019-09- No [id number] 1000mg Take 1 Univers 1,000 mg 0-15 01-14 tablet by ity o f tablet 00:00: 05:59 mouth 2 [place] 00 :00 (two) Medical times [place] daily with meals for 90 days. lisinopriL 2019-09- No [id number] 40mg Take 1 Univers 40 mg 0-15 01-14 tablet by ity of tablet 00:00: 05:59 mouth [place] 00 :00 daily for Medical 90 days. [place] metoprolol 2019-09- No [id number] 25mg Take 1 Univers succinate 0-15 01-14 tablet by ity of XL 25 mg 24 00:00: 05:59 [place] tablet 00 :00 daily for Medic al 90 days. [place] glipiZIDE 2019-09- No [id number] 10mg Take 1 Univers 10 mg 0-15 01-14 tablet by ity of tablet 00:00: 05:59 mouth [place] 00 :00 daily for Medical 90 days. [place] metFORMIN 2019-09- No [id number] 1000mg Take 1 Univers 1,000 mg 0-15 01-14 tablet by ity o f tablet 00:00: 05:59 mouth 2 [place] 00 :00 (two) Medical times [place] daily with meals for 90 days. lisinopriL 2019-09- No [id number] 40mg Take 1 Univers 40 mg 0-15 01-14 tablet by ity of tablet 00:00: 05:59 mouth [place] 00 :00 daily for Medical 90 days. [place] metoprolol 2019-09- No [id number] 25mg Take 1 Univers succinate 0-15 01-14 tablet by ity of XL 25 mg 24 00:00: 05:59 [place] tablet 00 :00 daily for Medic al 90 days. [place] glipiZIDE 2019-09- No [id number] 10mg Take 1 Univers 10 mg 0-15 01-14 tablet by ity of tablet 00:00: 05:59 mouth [place] 00 :00 daily for Medical 90 days. [place] metFORMIN 2019-09- No [id number] 1000mg Take 1 Univers 1,000 mg 0-15 01-14 tablet by ity o f tablet 00:00: 05:59 mouth 2 [place] 00 :00 (two) Medical times [place] daily with meals for 90 days. lisinopriL 2019-09- No [id number] 40mg Take 1 Univers 40 mg 0-15 01-14 tablet by ity of tablet 00:00: 05:59 mouth [place] 00 :00 daily for Medical 90 days. [place] metoprolol 2019-09- No [id number] 25mg Take 1 Univers succinate 0-15 01-14 tablet by ity of XL 25 mg 24 00:00: 05:59 [place] tablet 00 :00 daily for Medic al 90 days. [place] glipiZIDE 2019-09- No [id number] 10mg Take 1 Univers 10 mg 0-15 01-14 tablet by ity of tablet 00:00: 05:59 mouth [place] 00 :00 daily for Medical 90 days. [place] metFORMIN 2019-09- No [id number] 1000mg Take 1 Univers 1,000 mg 0-15 01-14 tablet by ity o f tablet 00:00: 05:59 mouth 2 [place] 00 :00 (two) Medical times [place] daily with meals for 90 days. lisinopriL 2019-09- No [id number] 40mg Take 1 Univers 40 mg 0-15 01-14 tablet by ity of tablet 00:00: 05:59 mouth [place] 00 :00 daily for Medical 90 days. [place] metoprolol 2019-09- No [id number] 25mg Take 1 Univers succinate 0-15 01-14 tablet by ity of XL 25 mg 24 00:00: 05:59 [place] tablet 00 :00 daily for Medic al 90 days. [place] glipiZIDE 2019-09- No [id number] 10mg Take 1 Univers 10 mg 0-15 01-14 tablet by ity of tablet 00:00: 05:59 mouth [place] 00 :00 daily for Medical 90 days. [place] metFORMIN 2019-09- No [id number] 1000mg Take 1 Univers 1,000 mg 0-15 01-14 tablet by ity o f tablet 00:00: 05:59 mouth 2 [place] 00 :00 (two) Medical times [place] daily with meals for 90 days. lisinopriL 2019-09- No [id number] 40mg Take 1 Univers 40 mg 0-15 01-14 tablet by ity of tablet 00:00: 05:59 mouth [place] 00 :00 daily for Medical 90 days. [place] metoprolol 2019-09- No [id number] 25mg Take 1 Univers succinate 0-15 01-14 tablet by ity of XL 25 mg 24 00:00: 05:59 [place] tablet 00 :00 daily for Medic al 90 days. [place] glipiZIDE 2019-09- No [id number] 10mg Take 1 Univers 10 mg 0-15 01-14 tablet by ity of tablet 00:00: 05:59 mouth [place] 00 :00 daily for Medical 90 days. [place] metFORMIN 2019-09- No [id number] 1000mg Take 1 Univers 1,000 mg 0-15 -14 tablet by ity o f tablet 00:00: 05:59 mouth 2 [place] 00 :00 (two) Medical times [place] daily with meals for 90 days. lisinopriL 2019-09- No [id number] 40mg Take 1 Univers 40 mg 0-15 -14 tablet by ity of tablet 00:00: 05:59 mouth [place] 00 :00 daily for Medical 90 days. [place] metoprolol 2019-09- No [id number] 25mg Take 1 Univers succinate 0-15 01-14 tablet by ity of XL 25 mg 24 00:00: 05:59 [place] tablet 00 :00 daily for Medic al 90 days. [place] glipiZIDE 2019-09- No [id number] 10mg Take 1 Univers 10 mg 0-15 -14 tablet by ity of tablet 00:00: 05:59 mouth [place] 00 :00 daily for Medical 90 days. [place] metFORMIN 2019-09- No [id number] 1000mg Take 1 Univers 1,000 mg 0-15 -14 tablet by ity o f tablet 00:00: 05:59 mouth 2 [place] 00 :00 (two) Medical times [place] daily with meals for 90 days. clotrimazol 2019-09- No [id number] Apply to [facility] e-betametha 0-07-10 area(s) 2 it y of sone 00:00: 05:59 (two) [place] (LOTRISONE) 00 :00 times Medical cream daily for Branch 21 days. clotrimazol 2019-09- No [id number] Apply to [facility] e-betametha 0-15 07-10 area(s) 2 it y of sone 00:00: 05:59 (two) [place] (LOTRISONE) 00 :00 times Medical cream daily for Branch 21 days. clotrimazol 2019-09- No [id number] Apply to [facility] e-betametha 0-15 07-10 area(s) 2 it y of sone 00:00: 05:59 (two) [place] (LOTRISONE) 00 :00 times Medical cream daily for Branch 21 days. clotrimazol 2019-09- No [id number] Apply to Univers e-betametha 0-15 07-10 area(s) 2 it y of sone 00:00: 05:59 (two) [place] (LOTRISONE) 00 :00 times Medical cream daily for Branch 21 days. fluconazole 2019-09- No [id number] 200mg Take 1 Univers 200 mg 0-15 10-21 tablet by ity of tablet 00:00: 04:59 mouth [place] 00 :00 daily for Medical 5 days. Branch fluconazole 2019-09- No [id number] 200mg Take 1 Univers 200 mg 0-15 10-21 tablet by ity of tablet 00:00: 04:59 mouth [place] 00 :00 daily for Medical 5 days. Branch fluconazole 2019-09- No [id number] 200mg Take 1 Univers 200 mg 0-15 10-21 tablet by ity of tablet 00:00: 04:59 mouth [place] 00 :00 daily for Medical 5 days. Branch HYDROcodone 2019- No 1{tbl} 1 tablet, Univers -acetaminop 7-31 03- Oral, ONCE i ty of hen (NORCO) 13:00: 12:01 NOW, 1 [place] as 10-325 mg 00 :00 dose, Tue Medic al tablet 1 03/31/20 at [facility] h tablet 0800, Routine traMADol Yes [id number] 50mg Take 1 Univers (ULTRAM) 50 7-28 tablet by ity of mg tablet 00:00: mouth [place] 00 every 6 Medical (six) Branch hours as needed for Pain (scale 7-10). Indication s: acute pain traMADol Yes [id number] 50mg Take 1 Univers (ULTRAM) 50 7-28 tablet by ity of mg tablet 00:00: mouth [place] 00 every 6 Medical (six) Branch hours as needed for Pain (scale 7-10). Indication s: acute pain traMADol 2019- No [id number] 50mg Take 1 Univer s (ULTRAM) 50 7-28 10-15 tablet by it y of mg tablet 00:00: 00:00 mouth [place] 00 :00 every 6 Medical (six) Branch hours as needed for Pain (scale 7-10). Indication s: acute pain traMADol 2019- No [id number] 50mg Take 1 Univer s (ULTRAM) 50 7-28 10-15 tablet by it y of mg tablet 00:00: 00:00 mouth [place] 00 :00 every 6 Medical (six) Branch hours as needed for Pain (scale 7-10). Indication s: acute pain dexamethaso 2019- 2020- No 10mg 10 mg, Uni vers ne 10-27- Oral, ity of (DECADRON 20:15: 19:14 ONCE, 1 [place] PHOSPHATE) 00 :00 dose, Sun Medi shailesh injection 10/27/19 at Bran ch 10 mg 1415, STAT benzonatate 2019-0 Yes [id number] 100mg Take 1 Univers 100 mg 2-23 capsule by ity of capsule 00:00: mouth 3 [place] 00 (three) Medical times Branch daily as needed for Cough. benzonatate 2019-0 Yes [id number] 100mg Take 1 Univers 100 mg 2-23 capsule by ity of capsule 00:00: mouth 3 [place] 00 (three) Medical times Branch daily as needed for Cough. benzonatate 2019-0 Yes [id number] 100mg Take 1 Univers 100 mg 2-23 capsule by ity of capsule 00:00: mouth 3 [place] 00 (three) Medical times Branch daily as needed for Cough. benzonatate 2019-0 2020- No [id number] 100mg Take 1 Univers 100 mg 2-23 10-15 capsule by ity of capsule 00:00: 00:00 mouth 3 [place] 00 :00 (three) Medical times Branch daily as needed for Cough. benzonatate 2020-0 2020- No [id number] 100mg Take 1 Univers 100 mg 2-23 10-15 capsule by ity of capsule 00:00: 00:00 mouth 3 [place] 00 :00 (three) Medical times Branch daily as needed for Cough. methylPREDN Yes [id number] Take by Univers ISolone -29 mouth ity of (MEDROL, 00:00: SEE-INSTRU [place] WALESKA,) 4 mg 00 CTIONS. Medica l tablets follow Branch package directions acetaminoph Yes [id number] 1{tbl} Take 1 Univers en-codeine 1-29 tablet by ity of (TYLENOL-CO 00:00: mouth [place] DEINE #3) 00 every 4 Medical 300-30 mg (four) Branch tablet hours as needed for Pain (scale 7-10). methylPREDN Yes [id number] Take by Univers ISolone 1-29 mouth ity of (MEDROL, 00:00: SEE-INSTRU [place],) 4 mg 00 CTIONS. Medica l tablets follow Branch package directions acetaminoph Yes [id number] 1{tbl} Take 1 Univers en-codeine 1-29 tablet by ity of (TYLENOL-CO 00:00: mouth [place] DEINE #3) 00 every 4 Medical 300-30 mg (four) Branch tablet hours as needed for Pain (scale 7-10). methylPREDN Yes [id number] Take by Univers ISolone 1-29 mouth ity of (MEDROL, 00:00: SEE-INSTRU [place],) 4 mg 00 CTIONS. Medica l tablets follow Branch package directions acetaminoph Yes [id number] 1{tbl} Take 1 Univers en-codeine 1-29 tablet by ity of (TYLENOL-CO 00:00: mouth [place] DEINE #3) 00 every 4 Medical 300-30 mg (four) Branch tablet hours as needed for Pain (scale 7-10). methylPREDN 2019- No [id number] Take by Univers ISolone 1-29 10-15 mouth ity of (MEDROL, 00:00: 00:00 [place] 4 mg 00 :00 CTIONS. Medica l tablets follow Branch package directions acetaminoph 2019- No [id number] 1{tbl} Take 1 Univers en-codeine 1-29 10-15 tablet by ity of (TYLENOL-CO 00:00: 00:00 [place] DEINE #3) 00 :00 every 4 Medical 300-30 mg (four) Branch tablet hours as needed for Pain (scale 7-10). methylPREDN 2019- No [id number] Take by Univers ISolone 1-29 10-15 mouth ity of (MEDROL, 00:00: 00:00 [place] 4 mg 00 :00 CTIONS. Medica l tablets follow Branch package directions acetaminoph 2019- No [id number] 1{tbl} Take 1 Univers en-codeine 1-29 10-15 tablet by ity of (TYLENOL-CO 00:00: 00:00 mouth [place] DEINE #3) 00 :00 every 4 Medical 300-30 mg (four) Branch tablet hours as needed for Pain (scale 7-10). No known No [facility] Ordered Filled Immunization Date Status Comments [facility] e Immunization Name Name Pneumococcal 2020-06-18 Completed [place] o f Polysaccharide, 00:00:00 [place] Med ical PPSV23 (PNEUMOVAX) Branch Pneumococcal 2020-06-18 Completed University o f Polysaccharide, 00:00:00 [place] Med ical PPSV23 (PNEUMOVAX) Branch Pneumococcal 2020-06-18 Completed University o f Polysaccharide, 00:00:00 [place] Med ical PPSV23 (PNEUMOVAX) Branch Pneumococcal 2020-06-18 Completed University o f Polysaccharide, 00:00:00 [place] Med ical PPSV23 (PNEUMOVAX) Branch Pneumococcal 2020-06-18 Completed University o f Polysaccharide, 00:00:00 [place] Med ical PPSV23 (PNEUMOVAX) Branch Pneumococcal 2020-06-18 Completed University o f Polysaccharide, 00:00:00 [place] Med ical PPSV23 (PNEUMOVAX) Branch Pneumococcal 2020-06-18 Completed University o f Polysaccharide, 00:00:00 [place] Med ical PPSV23 (PNEUMOVAX) Branch Pneumococcal 2020-06-18 Completed University o f Polysaccharide, 00:00:00 [place] Med ical PPSV23 (PNEUMOVAX) Branch Pneumococcal 2020-06-18 Completed University o f Polysaccharide, 00:00:00 [place] Med ical PPSV23 (PNEUMOVAX) Branch Vital Signs Vital Name Observation Time Observation Value Comments Source Systolic blood 2020-08-13 19:43:00 145 mm[Hg] Univer sity of pressure [facility] Diastolic blood 2020-08-13 19:43:00 97 mm[Hg] Unive rsity of pressure [facility] Heart rate 2020-08-13 19:43:00 93 /min [facility] Body temperature 2020-08-13 19:43:00 35.94 [facility] 2020-08-13 19:43:00 18 /min [facility] Body height 2020-08-13 19:43:00 165.1 cm [facility] Body weight 2020-08-13 19:43:00 99.338 kg [facility] BMI 2020-08-13 19:43:00 36.44 kg/m2 Universi ty of [place] [facility] Systolic blood 2020-08-13 19:43:00 145 mm[Hg] Univer sity of pressure [place] [facility] Diastolic blood 2020-08-13 19:43:00 97 mm[Hg] Unive rsity of pressure [facility] Branch Heart rate 2020-08-13 19:43:00 93 /min Universi ty of [place] [facility] Body temperature 2020-08-13 19:43:00 35.94 Babita Univ ersity of [place] [facility] Respiratory rate 2020-08-13 19:43:00 18 /min Univ ersity of [place] [facility] Body height 2020-08-13 19:43:00 165.1 cm Universi ty [facility] [place] [facility] Body weight 2020-08-13 19:43:00 99.338 kg Universi ty [facility] [place] [facility] BMI 2020-08-13 19:43:00 36.44 kg/m2 [facility]i [facility] [place] [facility] Body weight 2020-07-14 21:00:00 100.699 kg Universi ty of [place] [facility] BMI 2020-07-14 21:00:00 35.83 kg/m2 Universi ty of [place] [facility] Systolic blood 2020-06-18 14:34:00 171 mm[Hg] Univer sity of pressure [place] [facility] Diastolic blood 2020-06-18 14:34:00 116 mm[Hg] Unive rsity of pressure [place] [facility] Heart rate 2020-06-18 14:34:00 125 /min Universi ty of [place] [facility] Body height 2020-06-18 14:33:00 167.6 cm Universi ty of [place] [facility] Body weight 2020-06-18 14:33:00 100.245 kg Universi ty [facility] [place] [facility] BMI 2020-06-18 14:33:00 35.67 kg/m2 Universi ty [facility] [place] [facility] Systolic blood 2020-03-31 10:28:00 153 mm[Hg] Univer sity of pressure [place] [facility] Diastolic blood 2020-03-31 10:28:00 106 mm[Hg] Unive rsity of pressure [facility] Branch Heart rate 2020-03-31 10:28:00 110 /min Universi ty [facility] [place] [facility] Body temperature 2020-03-31 10:28:00 37.11 Babita Univ ersity of [place] [facility] Respiratory rate 2020-03-31 10:28:00 16 /min [facility] Body height 2020-03-31 10:28:00 167.6 cm Universi ty of [place] [facility] [place] Body weight 2020-03-31 10:28:00 112.946 kg Universi ty of [facility] BMI 2020-03-31 10:28:00 40.19 kg/m2 Universi ty of [facility] Oxygen saturation in 2020-03-31 10:28:00 98 /min University of Arterial blood by [facility] Pulse oximetry Branch Systolic blood 2019-10-27 18:36:00 142 mm[facility]Hg] [facility] Diastolic blood 2019-10-27 18:36:00 99 mm[Hg] [facility] Heart rate 2019-10-27 18:36:00 91 /min Universi ty of [facility] Body temperature 2019-10-27 18:36:[address] [facility] Respiratory rate 2019-10-27 18:36:00 17 /min [facility] Body height 2019-10-27 18:36:00 165.1 cm Universi ty of [place] Medical [place] Body weight 2019-10-27 18:36:00 113.399 kg Universi ty of [facility] BMI 2019-10-27 18:36:00 41.60 kg/m2 Universi ty of [facility] Oxygen saturation in 2019-10-27 18:36:00 99 /min University of Arterial blood by [facility] Pulse oximetry Branch Procedures Procedure Date / Time Performing Clinician Source Performed CBC WITH DIFF 2020-06-18 15:39:00 Angelika Agudelo [place] o f [facility] PNEUMOCOCCAL VACCINE, 2020-06-18 15:25:32 Angelika Agudelo [facility] 23-VALENT (PNEUMOVAX) Medical Br anch ASSIGNMENT OF BENEFITS 2020-06-18 14:08:02 Doctor Unassigned, No [facility] XR ANKLE 3+ VW RIGHT 2020-03-31 10:55:17 Teofilo De Guzman [facility] XR FOOT <3 VW RIGHT 2020-03-31 10:55:[address] [facility] NOTICE OF PRIVACY 2020-03-31 10:23:35 Doctor Unassigned, No Univ [facility] PRACTICES Name Medical Branch CONSENT/REFUSAL FOR 2020-03-31 10:23:25 Doctor Unassigned, No [facility] Name [facility] XR CHEST 2 VW 2019-10-27 19:11:42 Rm Cook [facility] POCT TEST 2019-10-27 18:50:[address] [facility] RAPID STREP SCREEN FOR 2019-10-27 18:47:00 Rm Cook [facility] GROUP A [facility] ADC,CLC OR LCC ONLY - 2019-10-27 18:47:00 Rm Cook [facility] INFLUENZA A & B DIRECT Medical B ranch ANTIGEN Encounters Start End Encounter Admission Attending Care Care Encounter Source Date/Time Date/Time Type Type Clinicians Facility Department ID 2020-11-23 2020-11-23 Patient [facility] Branch [id number] Univers 00:00:00 00:00:00 Outreach Donnie PRIMARY [id number] i ty of [facility] [id number] Mely CAMPOS [id number] Md dical [address] [place] [address] 2020-10-29 2020-10-29 [facility] [id number] Univers 13:00:00 13:00:00 CHEL [id number] [facility] 2020-10-29 2020-10-29 [facility] [id number] Univers 13:00:00 13:00:00 CHEL [facility] 2020-10-05 2020-10-05 Outpatient [facility] [id number] Univers 17:00:00 17:00:00 [id number] [facility] 2020-10-05 2020-10-05 [facility] [id number] Univers 17:00:00 17:00:00 ASHLEY sanders [facility] 2020-09-17 2020-09-17 Outpatient R DEBBIE, [facility] [id number] Univers 08:30:00 08:30:00 ANGELIKA [id number] ity [facility] 2020-09-17 2020-09-17 Outpatient Joseph AGUDELO [facility] [id number] Univers 08:30:00 08:30:00 ANGELIKA ity [facility] 2020-08-14 2020-08-14 Outpatient R STEVEN [facility] [id number] Univers 14:15:00 14:15:00 FABIAN [id number] ity [facility] 2020-08-14 2020-08-14 Outpatient R STEVEN [facility] [id number] Univers 14:15:00 14:15:00 [facility] 2020-08-13 2020-08-13 [facility] [id number] 13:39:10 14:07:15 Visit [facility] [id number] Surgical [id number] Specialti [id number] es [address] [place] 2020-08-13 2020-08-13 Office Farshad Gonzalez [facility] [id number] Univers 13:39:10 14:07:15 Visit Yoko Russell [facility] [id number] ity of Surgical [id number] [place] as Specialti [id number] Md dical es 198 [facility] 2020-08-13 2020-08-13 Outpatient R TAHMINA [facility] [id number] Univers 14:00:00 14:00:00 YOKO ity [facility] 2020-08-13 2020-08-13 [facility] [id number] Univers 14:00:00 14:00:00 YOKO ity [facility] 2020-08-13 2020-08-13 Letter [facility] [id number] 00:00:00 00:00:00 (Out) [facility] [id number] Surgical [id number] Specialti [id number] es [address] [place] 2020-08-13 2020-08-13 Letter [facility] [id number] Univers 00:00:00 00:00:00 (Out) [facility] 350.1.13.10 it y of Surgical 4.2.7.2.686 Anthony as Specialti [phone] Md dical es 198 [facility] 2020-07-14 2020-07-14 Camp Tender Onel [facility] [id number] Univers 14:54:50 15:56:23 Visit Chel [place] 350.1.13.10 i ty of [place] 4[place]2.7.2.[place] Profess[place] [phone] Md dical nal 220 [facility] 2020-07-14 2020-07-14 [facility] [id number] -[id number] Univers 15:00:00 15:00:00 CHEL ity [facility] 2020-07-14 2020-07-14 Outpatient [facility] [id number] Univers 15:00:00 15:00:00 CHEL ity [facility] 2020-07-06 2020-07-06 Telephone [facility]PRES[facility] [id number] Univers 00:00:00 00:00:00 [facility] [id number] it y of [place] 4.2.7.2.686 Anthony as Professio [phone] Md dical nal 044 [facility] 2020-06-18 2020-06-18 Outpatient R [facility] [id number] -[id number] Univers 11:20:00 11:20:00 [id number] [facility]-06-18 2020-06-18 Network Support Manager Lab, Adc Fam Pob I [facility] 1.2. [id number] [id number] Univers 10:29:59 10:49:59 Visit Angelika Agudelo [facility] 350.1.13.10 ity of [place] 4.2.7.2.686 Anthony as Professio [phone] Md dical nal 044 [facility] 2020-06-18 2020-06-18 Office [facility] 1.2.840.114 [id number] Univers 09:08:34 10:30:22 Visit Angelika [facility] 350.1.13.10 it y of [place] 4.2.7.2.686 Anthony as Professio [phone] Md dical nal 044 [place] [facility] [employer] 2020-06-18 2020-06-18 Outpatient R DEBBIE [facility] [id number] Univers 09:30:00 09:30:00 ANGELIKA itmelissa of [facility] 2020-06-18 2020-06-18 Orders Doctor DELMIS 1.2.840.114 [id number] Univers 00:00:00 00:00:00 Only Unassigned, HERNÁN 350.1.13.10 ity of [place] [facility] 4.2.7.2.686 Anthony as [phone] [address] 2020-03-31 2020-03-31 Emergency [facility] [id number] Univers 05:32:50 07:12:00 Teofilo Kelsy Joseph 350.1.13.10 ity of [place] 4.2.7.2.686 [facility] [phone] [address] 2020-03-31 2020-03-31 Emergency X [facility] ERT [id number] Univers 05:23:00 05:23:00 ity of [facility] 2019-10-27 2019-10-27 Emergency X [facility] ERT [id number] Univers 12:36:57 14:05:00 RM ity of [facility] 2019-10-27 2019-10-27 Emergency [facility] 1.2.729.541 [id number] Univers 12:36:57 14:05:00 Rm Joseph 350.1.13.10 ity of [place] 4.2.7.2.686 [facility] [phone] [address] Results Test Description Test Time Test Comments Results Result Comments Source CBC WITH DIFF 2020-06-18 16:13:00 Test Item Value Reference Range Interpretation Comme nts WBC (test code = 6690-2) See_Comment [A utomated message] The system which ge nerated this result transmit onel reference range: 4.30 - 1 1.10 10*3/?L. The reference r jens was not used to interpr et this result as normal/abnor mal. RBC (test code = 789-8) See_Comment H [Au tomated message] The system which [employer] nerated this result transmit onel reference range: 3.93 - 5 .25 10*6/?L. The reference r jens was not used to interpr et this result as normal/abnor mal. HGB (test code = 718-7) 15.2 g/dL 11.6-15 H HCT (test code = 4544-3) 45.5 % 35.7-45.2 H MCV (test code = 787-2) 86.2 fL 80.6-95.5 MCH (test code = 785-6) 28.8 pg 25.9-32.8 MCHC (test code = 786-4) 33.4 g/dL 31.6-35.1 RDW-SD (test code = 77904-7) 38.1 fL 39-49.9 L RDW-CV (test code = 788-0) 12.1 % 12-15.5 PLT (test code = 777-3) See_Comment [Au tomated message] The system which ge nerated this result transmit onel reference range: 166 - 35 8 10*3/?L. The reference range was not used to interpret th is result as normal/abnormal . MPV (test code = 32213-6) 10.0 fL 9.5-12.9 NRBC/100 WBC (test code = See_Comment [ Automated message] The [id number]) system which [employer] nerated this result transmit onel reference range: 0.0 - 10 .0 /100 WBCs. The reference r jens was not used to interpr et this result as normal/abnor mal. NRBC x10^3 (test code = <0.01 See_Comment [Au tomated message] The [id number]) system which [employer] nerated this result transmit onel reference range: 10*3/?L. The reference range was not u sed to interpret this result as normal/abnormal . GRAN MAT (NEUT) % (test code 54.0 % = 770-8) IMM GRAN % (test code = 0.30 % [id number]) LYMPH % (test code = 736-9) 39.1 % MONO % (test code = 5905-5) 5.2 % EOS % (test code = 713-8) 0.8 % BASO % (test code = 706-2) 0.6 % GRAN MAT x10^3(ANC) (test 4.90 10*3/uL 1.88-7.09 code = 0178153858) IMM GRAN x10^3 (test code = 0.03 10*3/uL 0-0.06 0488608073) LYMPH x10^3 (test code = 3.54 10*3/uL 1.32-3.29 H 731-0) MONO x10^3 (test code = 0.47 10*3/uL 0.33-0.92 742-7) EOS x10^3 (test code = 0.07 10*3/uL 0.03-0.39 711-2) BASO x10^3 (test code = 0.05 10*3/uL 0.01-0.07 704-7) Lab Interpretation (test Abnormal code = 98760-3) [facility] WITH [id number] 16:13:00 Test Item Value Reference Range Interpretation Comments WBC (test code = See_Comment [Automated 6690-2) message] The sy stem which generated this result transmitted reference range : 4.30 - 11.10 10*3/?L. The reference range was not used to interpret this result as normal/abnormal . RBC (test code = See_Comment H [Automated 789-8) message] The sy stem which generated this result transmitted reference range : 3.93 - 5.25 10*6/?L. The reference range was not used to interpret this result as normal/abnormal . HGB (test code = 15.2 g/dL 11.6-15 H 718-7) HCT (test code = 45.5 % 35.7-45.2 H 4544-3) MCV (test code = 86.2 fL 80.6-95.5 787-2) MCH (test code = 28.8 pg 25.9-32.8 785-6) MCHC (test code = 33.4 g/dL 31.6-35.1 786-4) RDW-SD (test code = 38.1 fL 39-49.9 L 91254-6) RDW-CV (test code = 12.1 % 12-15.5 788-0) PLT (test code = See_Comment [Automated 777-3) message] The sy stem which generated this result transmitted reference range : 166 - 358 10*3/ ?L. The reference r jens was not used to interpret this result as normal/abnormal . MPV (test code = 10.0 fL 9.5-12.9 63115-2) NRBC/100 WBC (test See_Comment [Automat ed code = [id number]) message] The system which generated this result transmitted reference range : 0.0 - 10.0 /100 WBCs. The refer ence range was not u sed to interpret th is result as normal/abnormal . NRBC x10^3 (test code <0.01 See_Comment [Auto mated = [id number]) message] The s ystem which generated this result transmitted reference range : 10*3/?L. The reference range was not used to interpret this result as normal/abnormal . GRAN MAT (NEUT) % 54.0 % (test code = 770-8) IMM GRAN % (test code 0.30 % = [id number]) LYMPH % (test code = 39.1 % 736-9) MONO % (test code = 5.2 % 5905-5) EOS % (test code = 0.8 % 713-8) BASO % (test code = 0.6 % 706-2) GRAN MAT x10^3(ANC) 4.90 10*3/uL 1.88-7.09 (test code = 7770798585) IMM GRAN x10^3 (test 0.03 10*3/uL 0-0.06 code = 8088030409) LYMPH x10^3 (test code 3.54 10*3/uL 1.32-3.29 H = 731-0) MONO x10^3 (test code 0.47 10*3/uL 0.33-0.92 = 742-7) EOS x10^3 (test code = 0.07 10*3/uL 0.03-0.39 711-2) BASO x10^3 (test code 0.05 10*3/uL 0.01-0.07 = 704-7) Lab Interpretation Abnormal (test code = 93333-1) [facility] - IN[facility]UENZA A & B DIRECT [id number] 19:45:00 Test Item Value Reference Range Interpretation Comments Influenza A (test code = 72626-6) Negative Negative Influenza B (test code = 04894-0) Negative Negative Lab Interpretation (test code = Normal 65781-0) [facility] FOR GROUP [id number] 19:45:00 Test Item Value Reference Range Interpretation Comments Streptococcus pyogenes (group A) Negative Negative antigen (test code = 68746-6) Lab Interpretation (test code = Normal 06902-3) [facility] [id number] 18:50:00 Test Item Value Reference Range Interpretation Comments POCT PREG (test code = 1605) negative On board controls acceptable with present C Line (test code = 3574) POCT PREG LOT # (test code = 3575) [id number] POCT PREG TEST DATE (test code = 3576) Lab Interpretation (test code = Normal 14678-5) [facility]
--- NOTE | 2022-02-14 20:26 | ER ---
Nurse's Notes [facility] Name: Clementina Hartley Age: 36 yrs Sex: Female : 1985 Arrival Date: 02/14/2022 Time: 19:03 Bed Waiting Private MD: Diagnosis: ED Course: 02/14 19:03 Patient arrived in ED. [email or web address] 20:25 Patient's name was called from ER lobby. No response. Unable to locate patient. Will bb disposition as left without being seen by a provider. Administered Medications: No medications were administered Outcome: 20:25 Patient left the ED. bb Signatures: Alexia Newberry RN RN bb Alexandra Vegas [email or web address]
== END 2022-02-14 20:25 | disposition left against medical advice (07) ==
LOC: ER 18:43
DX: Z02.89 Encounter for other administrative examinations (principal)

== ENCOUNTER 2022-02-21 06:41 | Inpatient (IN) | payer OTHER ==
--- OUTSIDE RECORDS SUMMARY | 2022-02-21 06:44 | XMS REPORT | Continuity of Care Document ---
:1985 Author Organization [facility] t Address [address] [place] [address] Care Team Providers Name Role Phone PCP, DOES NOT HAVE A Primary Care Physician Unavailable Trae Durant DO Attending Clinician ONEL Attending Clinician Unavailable Christine REED Attending Clinician Unavailable DEBBIE Attending Clinician Unavailable Vick HARRIS Attending Clinician Unavailable Carlos SHERIDAN S Attending Clinician Kinjal Russell MD Attending Clinician Kinjal RUSSELL Attending Clinician Unavailable Onel RD Attending Clinician Debbie YOUTH TEACHER Attending Clinician Lab, Fam Pob I Attending [...] nivers pain pain 3-21 ity of 00:00: [place] [address] [facility] [place] Abscess of Abscess of Disease Active 2014-0 U nivers left thigh left thigh 9-30 it y of 00:00: [place] [address] [facility] [place] Allergies, Adverse Reactions, Alerts Allergy Allergy Status Severity Reaction(s) Onset Inactive Treating Comm ents Source Name Type Date Date Clinician Penicill Propensi Active Anaphylaxis U nivers ins ty to 9-30 ity of adverse 00:00: [place] reaction Medical s Branch IODINE DRUG Active Anaphylaxis Unive rs INGREDI 9-30 ity of 00:00: [place] 00 Medical Branch LATEX DRUG Active Hives Univers INGREDI 9-30 ity of 00:00: [place] 00 Medical Branch PENICILL Drug Active Anaphylaxis Uni vers INS Class 9-30 ity of 00:00: [place] 00 Medical Branch Iodine Propensi Active Anaphylaxis Uni vers ty to 9-30 ity of adverse 00:00: [place] reaction Medical s Branch Latex Propensi Active Hives Univers ty to 9-30 ity of adverse 00:00: [place] reaction 00 Medical s Branch Social History Social Habit Start Date Stop Date Quantity Comments Source Exposure to Unable to assess Univers ity of SARS-CoV-2 (event) [facility] [place] [facility] Tobacco use and 2020-06-18 2020-06-18 Never used Universit y of exposure 00:00:00 00:00:00 [facility] [place] [facility] Cigarettes smoked 2020-06-18 2020-06-18 Univers ity of current (pack per 00:00:00 00:00:00 [place] ) - Reported Branch Alcohol intake 2020-06-18 2020-06-18 Current drinker Unive rsity of 00:00:00 00:00:00 of alcohol [facility] (finding) Branch Sex [birth year] At [birth year] Universit y of 00:00:00 00:00:00 [facility] [place] [facility] Smoking Status Start Date Stop Date Source Current every day smoker 2020-06-18 00:00:00 Uni versity of [facility] [place] [facility] Medications Ordered Filled Start Stop Current Ordering Indication Dosage Frequency Signature Comments Components Source Medication Medication Date Date Medication? Clinician (SIG) Name Name metFORMIN 2019-09 2020- No 500mg Take 500 Un ramesh 500 mg 0-15 10-15 mg by ity of tablet 15:05: 00:00 mouth 2 [place] 41 :00 (two) Medical times Branch daily with meals. metFORMIN 2019-09- No 500mg Take 500 Un ramesh 500 mg 0-15 10-15 mg by ity of tablet 15:05: 00:00 mouth 2 [place] 41 :00 (two) Medical times Branch daily with meals. lisinopriL 2019-09- No [id number] 40mg Take 1 Univers 40 mg 0-15 01-14 tablet by ity of tablet 00:00: 05:59 mouth [place] 00 :00 daily for Medical 90 days. [place] metoprolol 2019-09- No [id number] 25mg Take 1 Univers succinate 0-15 01-14 tablet by ity of XL 25 mg 24 00:00: 05:59 [place] hr tablet 00 :00 daily for Medic al 90 days. [place] glipiZIDE 2019-09- No [id number] 10mg Take 1 Univers 10 mg 0-15 01-14 tablet by ity of tablet 00:00: 05:59 mouth [place] 00 :00 daily for Medical 90 days. [place] metFORMIN 2019-09- No [id number] 1000mg Take 1 Univers 1,000 mg 0-15 01-14 tablet by ity o f tablet 00:00: 05:59 mouth 2 [place] 00 :00 (two) Medical times [place] daily with meals for 90 days. lisinopriL 2019-09- No [id number] 40mg Take 1 Univers 40 mg 0-15 01-14 tablet by ity of tablet 00:00: 05:59 mouth [place] 00 :00 daily for Medical 90 days. [place] metoprolol 2019-09- No [id number] 25mg Take 1 Univers succinate 0-15 01-14 tablet by ity of XL 25 mg 24 00:00: 05:59 [place] tablet 00 :00 daily for Medic al 90 days. [place] glipiZIDE 2019-09- No [id number] 10mg Take 1 Univers 10 mg 0-15 01-14 tablet by ity of tablet 00:00: 05:59 mouth [place] 00 :00 daily for Medical 90 days. [place] metFORMIN 2019-09- No [id number] 1000mg Take 1 Univers 1,000 mg 0-15 01-14 tablet by ity o f tablet 00:00: 05:59 mouth 2 [place] 00 :00 (two) Medical times [place] daily with meals for 90 days. lisinopriL 2019-09- No [id number] 40mg Take 1 Univers 40 mg 0-15 01-14 tablet by ity of tablet 00:00: 05:59 mouth [place] 00 :00 daily for Medical 90 days. [place] metoprolol 2019-09- No [id number] 25mg Take 1 Univers succinate 0-15 01-14 tablet by ity of XL 25 mg 24 00:00: 05:59 [place] tablet 00 :00 daily for Medic al 90 days. [place] glipiZIDE 2019-09- No [id number] 10mg Take 1 Univers 10 mg 0-15 01-14 tablet by ity of tablet 00:00: 05:59 mouth [place] 00 :00 daily for Medical 90 days. [place] metFORMIN 2019-09- No [id number] 1000mg Take 1 Univers 1,000 mg 0-15 01-14 tablet by ity o f tablet 00:00: 05:59 mouth 2 [place] 00 :00 (two) Medical times [place] daily with meals for 90 days. lisinopriL 2019-09- No [id number] 40mg Take 1 Univers 40 mg 0-15 01-14 tablet by ity of tablet 00:00: 05:59 mouth [place] 00 :00 daily for Medical 90 days. [place] metoprolol 2019-09- No [id number] 25mg Take 1 Univers succinate 0-15 01-14 tablet by ity of XL 25 mg 24 00:00: 05:59 [place] tablet 00 :00 daily for Medic al 90 days. [place] glipiZIDE 2019-09- No [id number] 10mg Take 1 Univers 10 mg 0-15 01-14 tablet by ity of tablet 00:00: 05:59 mouth [place] 00 :00 daily for Medical 90 days. [place] metFORMIN 2019-09- No [id number] 1000mg Take 1 Univers 1,000 mg 0-15 01-14 tablet by ity o f tablet 00:00: 05:59 mouth 2 [place] 00 :00 (two) Medical times [place] daily with meals for 90 days. lisinopriL 2019-09- No [id number] 40mg Take 1 Univers 40 mg 0-15 01-14 tablet by ity of tablet 00:00: 05:59 mouth [place] 00 :00 daily for Medical 90 days. [place] metoprolol 2019-09- No [id number] 25mg Take 1 Univers succinate 0-15 01-14 tablet by ity of XL 25 mg 24 00:00: 05:59 [place] tablet 00 :00 daily for Medic al 90 days. [place] glipiZIDE 2019-09- No [id number] 10mg Take 1 Univers 10 mg 0-15 01-14 tablet by ity of tablet 00:00: 05:59 mouth [place] 00 :00 daily for Medical 90 days. [place] metFORMIN 2019-09- No [id number] 1000mg Take 1 Univers 1,000 mg 0-15 01-14 tablet by ity o f tablet 00:00: 05:59 mouth 2 [place] 00 :00 (two) Medical times [place] daily with meals for 90 days. lisinopriL 2019-09- No [id number] 40mg Take 1 Univers 40 mg 0-15 01-14 tablet by ity of tablet 00:00: 05:59 mouth [place] 00 :00 daily for Medical 90 days. [place] metoprolol 2019-09- No [id number] 25mg Take 1 Univers succinate 0-15 01-14 tablet by ity of XL 25 mg 24 00:00: 05:59 [place] tablet 00 :00 daily for Medic al 90 days. [place] glipiZIDE 2019-09- No [id number] 10mg Take 1 Univers 10 mg 0-15 01-14 tablet by ity of tablet 00:00: 05:59 mouth [place] 00 :00 daily for Medical 90 days. [place] metFORMIN 2019-09- No [id number] 1000mg Take 1 Univers 1,000 mg 0-15 01-14 tablet by ity o f tablet 00:00: 05:59 mouth 2 [place] 00 :00 (two) Medical times [place] daily with meals for 90 days. lisinopriL 2019-09- No [id number] 40mg Take 1 Univers 40 mg 0-15 01-14 tablet by ity of tablet 00:00: 05:59 mouth [place] 00 :00 daily for Medical 90 days. [place] metoprolol 2019-09- No [id number] 25mg Take 1 Univers succinate 0-15 01-14 tablet by ity of XL 25 mg 24 00:00: 05:59 [place] tablet 00 :00 daily for Medic al 90 days. [place] glipiZIDE 2019-09- No [id number] 10mg Take 1 Univers 10 mg 0-15 01-14 tablet by ity of tablet 00:00: 05:59 mouth [place] 00 :00 daily for Medical 90 days. [place] metFORMIN 2019-09- No [id number] 1000mg Take 1 Univers 1,000 mg 0-15 -14 tablet by ity o f tablet 00:00: 05:59 mouth 2 [place] 00 :00 (two) Medical times [place] daily with meals for 90 days. lisinopriL 2019-09- No [id number] 40mg Take 1 Univers 40 mg 0-15 -14 tablet by ity of tablet 00:00: 05:59 mouth [place] 00 :00 daily for Medical 90 days. [place] metoprolol 2019-09- No [id number] 25mg Take 1 Univers succinate 0-15 -14 tablet by ity of XL 25 mg 24 00:00: 05:59 [place] tablet 00 :00 daily for Medic al 90 days. [place] glipiZIDE 2019-09- No [id number] 10mg Take 1 Univers 10 mg 0-15 -14 tablet by ity of tablet 00:00: 05:59 mouth [place] 00 :00 daily for Medical 90 days. [place] metFORMIN 2019-09- No [id number] 1000mg Take 1 Univers 1,000 mg 0-15 -14 tablet by ity o f tablet 00:00: 05:59 mouth 2 [place] 00 :00 (two) Medical times [place] daily with meals for 90 days. clotrimazol 2019-09- No [id number] Apply to [facility] e-betametha 0-07-10 area(s) 2 it y of sone 00:00: 05:59 (two) [place] (LOTRISONE) 00 :00 times Medical cream daily for Branch 21 days. clotrimazol 2019-09- No [id number] Apply to [facility] e-betametha 0-07-10 area(s) 2 it y of sone 00:00: 05:59 (two) [place] (LOTRISONE) 00 :00 times Medical cream daily for Branch 21 days. clotrimazol 2019-09- No [id number] Apply to [facility] e-betametha 0-15 07-10 area(s) 2 it y of sone 00:00: 05:59 (two) [place] (LOTRISONE) 00 :00 times Medical cream daily for Branch 21 days. clotrimazol 2019-09- No [id number] Apply to [facility] e-betametha 0-15 07-10 area(s) 2 it y of sone 00:00: 05:59 (two) [place] (LOTRISONE) 00 :00 times Medical cream daily for Branch 21 days. fluconazole 2019-09- No [id number] 200mg Take 1 Univers 200 mg 0-15 10-21 tablet by ity of tablet 00:00: 04:59 mouth [place] 00 :00 daily for Medical 5 days. Branch fluconazole 2019-09- No [id number] 200mg Take 1 Univers 200 mg 0-15 10-21 tablet by ity of tablet 00:00: 04:59 mouth [place] 00 :00 daily for Medical 5 days. Branch fluconazole 2019-09- No [id number] 200mg Take 1 Univers 200 mg 0-15 10-21 tablet by ity of tablet 00:00: 04:59 mouth [place] 00 :00 daily for Medical 5 days. Branch HYDROcodone 2019- No 1{tbl} 1 tablet, Univers -acetaminop 7-31 03- Oral, ONCE i ty of hen (NORCO) 13:00: 12:01 NOW, 1 [place] as 10-325 mg 00 :00 dose, Tue Medic al tablet 1 03/31/[address] [facility] h tablet 0800, Routine traMADol [...] 10 mg 1415, STAT benzonatate 2019-0 Yes [id number] 100mg Take 1 Univers 100 mg 2-23 capsule by ity of capsule 00:00: mouth 3 [place] 00 (three) Medical times Branch daily as needed for Cough. benzonatate 2019-0 Yes [id number] 100mg Take 1 Univers 100 mg 2-23 capsule by ity of capsule 00:00: mouth 3 [place] 00 (three) Medical times Branch daily as needed for Cough. benzonatate 2019-0 Yes [id number] 100mg Take 1 Univers 100 mg 2-23 capsule by ity of capsule 00:00: mouth 3 [place] 00 (three) Medical times Branch daily as needed for Cough. benzonatate 2019-0 2020- No [id number] 100mg Take 1 Univers 100 mg 2-23 10-15 capsule by ity of capsule 00:00: 00:00 mouth 3 [place] 00 :00 (three) Medical times Branch daily as needed for Cough. benzonatate 2020-0 2020- No [id number] 100mg Take 1 Univers 100 mg 2-23 10-15 capsule by ity of capsule 00:00: 00:00 mouth 3 [place] 00 :00 (three) Medical times Branch daily as needed for Cough. methylPREDN Yes [id number] Take by Univers ISolone 10-02 mouth ity of (MEDROL, 00:00: SEE-INSTRU [place] WALESKA,) 4 mg 00 CTIONS. Medica l tablets follow Branch package directions acetaminoph Yes [id number] 1{tbl} Take 1 Univers en-codeine -29 tablet by ity of (TYLENOL-CO 00:00: mouth [place] DEINE #3) 00 every 4 Medical 300-30 mg (four) Branch tablet hours as needed for Pain (scale 7-10). methylPREDN Yes [id number] Take by Univers ISolone 1-29 mouth ity of (MEDROL, 00:00: SEE-INSTRU [place] WALESKA,) 4 mg 00 CTIONS. Medica l tablets follow Branch package directions acetaminoph Yes [id number] 1{tbl} Take 1 Univers en-codeine 1-29 tablet by ity of (TYLENOL-CO 00:00: mouth [place] DEINE #3) 00 every 4 Medical 300-30 mg (four) Branch tablet hours as needed for Pain (scale 7-10). methylPREDN Yes [id number] Take by Univers ISolone 1-29 mouth ity of (MEDROL, 00:00: SEE-INSTRU [place],) 4 mg 00 CTIONS. Medica l tablets follow Branch package directions acetaminoph Yes [id number] 1{tbl} Take 1 Univers en-codeine 1-29 tablet by ity of (TYLENOL-CO 00:00: mouth [place] DEINE #3) 00 every 4 Medical 300-30 mg (four) Branch tablet hours as needed for Pain (scale 7-10). methylPREDN 2019- No [id number] Take by Univers ISolone 1-29 10-15 mouth ity of (MEDROL, 00:00: 00:00 [place],) 4 mg 00 :00 CTIONS. Medica l tablets follow Branch package directions acetaminoph 2019- No [id number] 1{tbl} Take 1 Univers en-codeine 1-29 10-15 tablet by ity of (TYLENOL-CO 00:00: 00:00 [place] DEINE #3) 00 :00 every 4 Medical 300-30 mg (four) Branch tablet hours as needed for Pain (scale 7-10). methylPREDN 2019- No [id number] Take by Univers ISolone 1-29 10-15 mouth ity of (MEDROL, 00:00: 00:00 [place] 4 mg 00 :00 CTIONS. Medica l tablets follow Branch package directions acetaminoph 2019- No [id number] 1{tbl} Take 1 Univers en-codeine 1-29 10-15 tablet by ity of (TYLENOL-CO 00:00: 00:00 [place] DEINE #3) 00 :00 every 4 Medical 300-30 mg (four) Branch tablet hours as needed for Pain (scale 7-10). No known No [facility] Ordered Filled Immunization Date Status Comments [facility] e Immunization Name Name Pneumococcal 2020-06-18 Completed [place] o f Polysaccharide, 00:00:00 [place] Med ical PPSV23 (PNEUMOVAX) Branch Pneumococcal 2020-06-18 Completed University o f Polysaccharide, 00:00:00 [place] Med ical PPSV23 (PNEUMOVAX) Branch Pneumococcal 2020-06-18 Completed University o f Polysaccharide, 00:00:00 [place] Med ical PPSV23 (PNEUMOVAX) Branch Pneumococcal 2020-06-18 Completed University o f Polysaccharide, 00:00:00 [place] Med ical PPSV23 (PNEUMOVAX) Branch Pneumococcal 2020-06-18 [...] 2020-06-18 Completed University o f Polysaccharide, 00:00:00 [place] Med ical PPSV23 (PNEUMOVAX) Branch Vital Signs Vital Name Observation Time Observation Value Comments Source Systolic blood 2020-08-13 19:43:00 145 mm[Hg] Univer sity of pressure [facility] [place] [facility] Diastolic blood 2020-08-13 19:43:00 97 mm[Hg] Unive rsity of pressure [facility] [place] [facility] Heart rate 2020-08-13 19:43:00 93 /min [facility] Body temperature 2020-08-13 19:43:00 35.94 Babita [facility] Respiratory rate 2020-08-13 19:43:00 18 /min [facility] Body height 2020-08-13 19:43:[address] [facility] Body weight 2020-08-13 19:43:00 99.338 kg [facility] Branch BMI 2020-08-13 19:43:00 36.44 kg/m2 Universi ty of [place] [facility] Systolic blood 2020-08-13 19:43:00 145 mm[Hg] Univer sity of pressure [place] [facility] Diastolic blood 2020-08-13 19:43:00 97 mm[Hg] Unive rsity of pressure [place] [facility] Heart rate 2020-08-13 19:43:00 93 /min Universi ty of [place] [facility] Body temperature 2020-08-13 19:43:00 35.94 Babita Univ ersity of [place] [facility] Respiratory rate 2020-08-13 19:43:00 18 /min Univ ersity of [place] [facility] Body height 2020-08-13 19:43:00 165.1 cm Universi ty of [place] [facility] Body weight 2020-08-13 19:43:00 99.338 kg Universi ty of [place] [facility] BMI 2020-08-13 19:43:00 36.44 kg/m2 Universi ty of [place] [facility] Body weight 2020-07-14 21:00:00 100.699 kg Universi ty of [place] [facility] BMI 2020-07-14 21:00:00 35.83 kg/m2 Universi ty of [place] [facility] Systolic blood 2020-06-18 14:34:00 171 mm[Hg] Univer sity of pressure [place] [facility] Diastolic blood 2020-06-18 14:34:00 116 mm[Hg] Unive rsity of pressure [place] [facility] Heart rate 2020-06-18 14:34:00 125 /min Universi ty of [place] [facility] Body height 2020-06-18 14:33:00 167.6 cm Universi ty of [place] [facility] Body weight 2020-06-18 14:33:00 100.245 kg Universi ty of [place] [facility] BMI 2020-06-18 14:33:00 35.67 kg/m2 Universi ty of [place] [facility] Systolic blood 2020-03-31 10:28:00 153 mm[Hg] Univer sity of pressure [place] [facility] Diastolic blood 2020-03-31 10:28:00 106 mm[Hg] Unive rsity of pressure [place] [facility] Heart rate 2020-03-31 10:28:00 110 /min Universi ty of [place] [facility] Body temperature 2020-03-31 10:28:00 37.11 Babita Univ ersity of [place] [facility] Respiratory rate 2020-03-31 10:28:00 16 /min [facility] Body height 2020-03-31 10:28:00 167.6 cm Universi ty of [place] [facility] [place] Body weight 2020-03-31 10:28:00 112.946 kg Universi ty of [facility] [place] [facility] BMI 2020-03-31 10:28:00 40.19 kg/m2 Universi ty of [facility] [place] [facility] Oxygen saturation in 2020-03-31 10:28:00 98 /min University of Arterial blood by [facility] Pulse oximetry Branch Systolic blood 2019-10-27 18:36:00 142 mm[Hg] [facility] sity of pressure [facility] [place] [facility] Diastolic blood 2019-10-27 18:36:00 99 mm[Hg] [facility] [place] [facility] Heart rate 2019-10-27 18:36:00 91 /min Universi ty of [facility] [place] [facility] Body temperature 2019-10-27 18:36:00 37.06 Babita [facility] Respiratory rate 2019-10-27 18:36:00 17 /min [facility] Body height 2019-10-27 18:36:00 165.1 cm Universi ty of [facility] [place] [facility] Body weight 2019-10-27 18:36:00 113.399 kg Universi ty of [facility] [place] [facility] BMI 2019-10-27 18:36:00 41.60 kg/m2 Universi ty of [facility] [place] [facility] Oxygen saturation in 2019-10-27 18:36:00 99 /min University of Arterial blood by [facility] Pulse oximetry Branch Procedures Procedure Date / Time Performing Clinician Source Performed CBC WITH DIFF 2020-06-18 15:39:00 Angelika Agudelo [place] o f [facility] [place] [facility] PNEUMOCOCCAL VACCINE, 2020-06-18 15:25:32 Angelika Agudelo [facility] 23-VALENT (PNEUMOVAX) Medical Br anch ASSIGNMENT OF BENEFITS 2020-06-18 14:08:02 Doctor Unassigned, No [facility] XR ANKLE 3+ VW RIGHT 2020-03-31 10:55:17 Teofilo De Guzman [facility] XR FOOT <3 VW RIGHT 2020-03-31 10:55:17 Teofilo De Guzman [facility] NOTICE OF PRIVACY 2020-03-31 10:23:35 Doctor Unassigned, No Univ [facility] PRACTICES Name Medical Branch CONSENT/REFUSAL FOR 2020-03-31 10:23:25 Doctor Unassigned, No [facility] Name [facility] XR CHEST 2 VW 2019-10-27 19:11:42 Rm Cook [facility] POCT TEST 2019-10-27 18:50:00 Rm Cook [facility] RAPID STREP SCREEN FOR 2019-10-27 18:47:[address] [facility] GROUP A [facility] ADC,CLC OR LCC ONLY - 2019-10-27 18:47:00 Rm Cook [facility] INFLUENZA A & B DIRECT Medical B ranch ANTIGEN Encounters Start End Encounter Admission Attending Care Care Encounter Source Date/Time Date/Time Type Type Clinicians Facility Department ID 2020-11-23 2020-11-23 Patient [facility] [id number] Univers 00:00:00 00:00:00 Outreach Donnie PRIMARY [id number] i ty of [facility] [id number] Mely CAMPOS [id number] Il dical [address] [place] [address] 2020-10-29 2020-10-29 [facility] [id number] Univers 13:00:00 13:00:00 CHEL [id number] [facility] 2020-10-29 2020-10-29 [facility] [id number] Univers 13:00:00 13:00:00 CHEL [facility] 2020-10-05 2020-10-05 Outpatient [facility] [id number] Univers 17:00:00 17:00:00 [id number] [facility] 2020-10-05 2020-10-05 [facility] [id number] Univers 17:00:00 17:00:00 ASHLEY sanders [facility] [place] [facility] 2020-09-17 2020-09-17 [facility] [id number] Univers 08:30:00 08:30:00 ANGELIKA [id number] ity [facility] 2020-09-17 2020-09-17 Outpatient Joseph AGUDELO [facility] [id number] Univers 08:30:00 08:30:00 ANGELIKA ity [facility] 2020-08-14 2020-08-14 Outpatient R STEVEN [facility] [id number] Univers 14:15:00 14:15:00 FABIAN [id number] ity [facility] 2020-08-14 2020-08-14 Outpatient R STEVEN [facility] [id number] Univers 14:15:00 14:15:00 [facility] 2020-08-13 2020-08-13 [facility] [id number] 13:39:10 14:07:15 Visit [facility] [id number] Surgical [id number] Specialti [id number] es 198 [place] 2020-08-13 2020-08-13 Office Farshad Gonzalez [facility] [id number] Univers 13:39:10 14:07:15 Visit Yoko Russell [facility] [id number] ity of Surgical [id number] [place] as Specialti [id number] Il dical es 198 [facility] 2020-08-13 2020-08-13 Outpatient R TAHMINA [facility] [id number] Univers 14:00:00 14:00:00 YOKO ity [facility] 2020-08-13 2020-08-13 [facility] [id number] Univers 14:00:00 14:00:00 [facility]O [facility] 2020-08-13 2020-08-13 Letter [facility] [id number] 00:00:00 00:00:00 (Out) [facility] [id number] Surgical [id number] Specialti [id number] es 198 [place] 2020-08-13 2020-08-13 [facility] [id number] Univers 00:00:00 00:00:00 (Out) Farshad [facility] [id number] it y of Surgical [id number] [place] as Specialti [id number] Il dical es 198 [facility] 2020-07-14 2020-07-14 Tube 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 Onel [facility] [id number] Univers 14:54:50 15:56:23 Visit Chel [place] [id number] i ty of [place] 4.2.7.2.686 [place] Profess[place] [id number] Il dical nal 220 [facility] 2020-07-14 2020-07-14 [facility] [id number] Univers 15:00:00 15:00:00 CHEL ity [facility] 2020-07-14 2020-07-14 Out[facility] [id number] Univers 15:00:00 15:00:00 CHEL ity [facility] 2020-07-06 2020-07-06 [facility] [id number] Univers 00:00:00 00:00:00 [facility] [id number] it y of [place] 4.2.7.2.686 [place] as Professio [id number] Il dical nal 044 [facility] 2020-06-18 2020-06-18 Outpatient R [facility] [id number] Univers 11:20:00 11:20:00 [id number] [facility] 2020-06-18 2020-06-18 [facility], Adc Fam Pob I [facility] [id number]. [id number] Univers 10:29:59 10:49:59 Visit Angelika Agudelo [id number] ity of [place] [id number] [place] as Professio [id number] Il dical nal 044 [facility] 2020-06-18 2020-06-18 Office [facility] [id number] Univers 09:08:34 10:30:22 Visit Angelika [facility] [id number] it y of [place] [id number] [place] as Professio [id number] Il dical nal 044 [place] [facility] [address] [employer] 2020-06-18 2020-06-18 [facility] [facility] [id number] Univers 09:30:00 09:30:00 ANGELIKA itmelissa of [facility] 2020-06-18 2020-06-18 Orders Doctor DELMIS [id number] Univers 00:00:00 00:00:00 Only Unassigned, HERNÁN [id number] ity of [place] [facility] [id number] Anthony as [id number] [address] 2020-03-31 2020-03-31 Emergency [facility] [id number] Univers 05:32:50 07:12:00 Teofilo Kelsy Joseph [id number] ity of [place] [id number] [facility] [id number] [address] 2020-03-31 2020-03-31 Emergency X [facility] ERT [id number] Univers 05:23:00 05:23:00 ity of [facility] 2019-10-27 2019-10-27 Emergency [facility] [id number] Univers 12:36:57 14:05:00 RM ity of [facility] 2019-10-27 2019-10-27 Emergency [facility] [id number] Univers 12:36:57 14:05:00 Rm Joseph [id number] ity of [place] [id number] [facility] [id number] [address] Results Test Description Test Time Test [...] H [Au tomated message] The system which Nexeon nerated this result transmit onel reference range: [...] 33.4 g/dL 31.6-35.1 RDW-SD (test code = 70171-8) 38.1 fL 39-49.9 L RDW-CV (test code = 788-0) 12.1 % 12-15.5 PLT (test code = 777-3) See_Comment [Au tomated message] The system which Nexeon nerated this result transmit onel reference range: 166 - 35 8 10*3/?L. The reference range was not used to interpret th is result as normal/abnormal . MPV (test code = 50691-4) 10.0 fL 9.5-12.9 NRBC/100 WBC (test code = See_Comment [ Automated message] The [id number]) system which Nexeon nerated this result transmit onel reference range: 0.0 - 10 .0 /100 WBCs. The reference r jens was not used to interpr et this result as normal/abnor mal. NRBC x10^3 (test code = <0.01 See_Comment [Au tomated message] The [id number]) system which Nexeon nerated this result transmit onel reference range: 10*3/?L. The reference range was not u sed to interpret this result as normal/abnormal . GRAN MAT (NEUT) % (test code 54.0 % = 770-8) IMM GRAN % (test code = 0.30 % [id number]) LYMPH % (test code = 736-9) 39.1 % MONO % (test code = 5905-5) 5.2 % EOS % (test code = 713-8) 0.8 % BASO % (test code = 706-2) 0.6 % GRAN MAT x10^3(ANC) (test 4.90 10*3/uL 1.88-7.09 code = 3316371580) IMM GRAN x10^3 (test code = 0.03 10*3/uL 0-0.06 9237175232) LYMPH x10^3 (test code = 3.54 10*3/uL 1.32-3.29 H 731-0) MONO x10^3 (test code = 0.47 10*3/uL 0.33-0.92 742-7) EOS x10^3 (test code = 0.07 10*3/uL 0.03-0.39 711-2) BASO x10^3 (test code = 0.05 10*3/uL 0.01-0.07 704-7) Lab Interpretation (test Abnormal code = 45357-7) [facility] WITH [id number] 16:13:00 Test Item Value Reference Range Interpretation [...] (test code = 38.1 fL 39-49.9 L 44488-0) RDW-CV (test code = 12.1 % 12-15.5 788-0) PLT (test code = See_Comment [Automated 777-3) message] The sy stem which generated this result transmitted reference range : 166 - 358 10*3/ ?L. The reference r jens was not used to interpret this result as normal/abnormal . MPV (test code = 10.0 fL 9.5-12.9 81093-4) NRBC/100 WBC (test See_Comment [Automat ed code = [id number]) message] The system which generated this result transmitted reference range : 0.0 - 10.0 /100 WBCs. The refer ence range was not u sed to interpret th is result as normal/abnormal . NRBC x10^3 (test code <0.01 See_Comment [Auto mated = [id number]) message] The s ystem which generated this result transmitted reference range : 10*3/?L. The reference range was not used to interpret this result as normal/abnormal . GRAN MAT (NEUT) % 54.0 % (test code = 770-8) IMM GRAN % (test code 0.30 % = 9947643564) LYMPH % (test code = 39.1 % 736-9) MONO % (test code = 5.2 % 5905-5) EOS % (test code = 0.8 % 713-8) BASO % (test code = 0.6 % 706-2) GRAN MAT x10^3(ANC) 4.90 10*3/uL 1.88-7.09 (test code = 1220038541) IMM GRAN x10^3 (test 0.03 10*3/uL 0-0.06 code = 9334954335) LYMPH x10^3 (test code 3.54 10*3/uL 1.32-3.29 H = 731-0) MONO x10^3 (test code 0.47 10*3/uL 0.33-0.92 = 742-7) EOS x10^3 (test code = 0.07 10*3/uL 0.03-0.39 711-2) BASO x10^3 (test code 0.05 10*3/uL 0.01-0.07 = 704-7) Lab Interpretation Abnormal (test code = 45139-1) [facility] - INFLUENZA A & B DIRECT [id number] 19:45:00 Test Item Value Reference Range Interpretation Comments Influenza A (test code = 76727-7) Negative Negative Influenza B (test code = 32289-9) Negative Negative Lab Interpretation (test code = Normal 34796-9) [facility] GROUP [id number] 19:45:00 Test Item Value Reference Range Interpretation Comments Streptococcus pyogenes (group A) Negative Negative antigen (test code = 15563-1) Lab Interpretation (test code = Normal 21419-8) [facility] [id number] 18:50:00 Test Item Value Reference Range Interpretation Comments POCT PREG (test code = 1605) negative On board controls acceptable with present C Line (test code = 3574) POCT PREG LOT # (test code = 3575) [id number] POCT PREG TEST DATE (test code = 3576) Lab Interpretation (test code = Normal 04550-5) [facility]
[2022-02-21] MEDS ORDERED: MORPHINE 4 MG/ML SYR ONE (07:04)
[2022-02-21] MEDS ORDERED: ONDANSETRON 4 MG/2 ML VIAL ONE ×2 (07:04→07:46)
[2022-02-21] MEDS ORDERED: NA CHLORIDE 0.9% 1,000 ML ONE ×2 (07:05→08:32)
[2022-02-21 07:12] LABS: Absolute Lymphocytes (CBC) 2.1 K/uL (0.7-4.9); Hematocrit 39.7 % (36.0-45.0); Lymphocytes % 15.1 % (15.3-44.8); MCV 83.3 fL (80-100); MPV 8.9 fL (7.6-11.3); RBC Red Blood Cell Count 4.77 M/uL (3.86-4.86)
[2022-02-21 07:21] LABS: Urine Blood 2+ (Negative); Urine Glucose 3+ (Negative); Urine Protein Negative (Negative)
[2022-02-21 07:35] LABS: Albumin 2.3 g/dL (3.4-5.0); Bilirubin Total 0.9 mg/dL (0.2-1.0); Protein, Total 8.1 g/dL (6.4-8.2)
[2022-02-21] MEDS ORDERED: Levofloxacin 750mg IV 750 MG/150 ML BAG IV ONE (07:46)
[2022-02-21] MEDS ORDERED: MORPHINE 2 MG/ML SYR ONE (07:46)
[2022-02-21] MEDS ORDERED: NA CHLORIDE 0.9% 500 ML ONE (07:46)
[2022-02-21 07:52] LABS: Urine Bacteria 20-50 /HPF (<20); Urine Urothelial Cells <5 /HPF (NONE SEEN)
--- NOTE | 2022-02-21 08:05 | RAD REPORT ---
EXAM DESCRIPTION: CT - Abdomen Pelvis Wo Contrast - 02/21/2022 7:48 am CLINICAL HISTORY: Abdominal pain, acute, nonlocalized COMPARISON: CTSTONE PROTOCOL dated 03/26/2015 TECHNIQUE: Axial [address] imaging of the abdomen and pelvis was performed without IV contrast. No IV contrast was given because of allergy, abnormal renal function, patient refusal or physician re quest. No oral contrast administered. All CT scans are performed using dose optimization technique as appropriate and may include automated exposure control or mA/KV adjustment according to patient size. FINDINGS: No suspicious findings in the lung bases. The liver, spleen and pancreas show no suspicious findings on non-contrast imaging. Cholecystectomy c lips are present. No biliary tree dilatation. No hydronephrosis seen but there is mild fullness of the right collecting system. Right renal parench yma is edematous. There does appear to be mild edema and trace amount of stranding along the course o f the right ureter. No obstructing or nonobstructing calculi seen. No significant adrenal finding. R ight-sided pyelonephritis would be a primary consideration given these findings. This diagnosis is no t definitive in the absence of IV contrast. The constellation of findings can also occur with a recen tly passed stone. Blood or inflammatory debris in the right ureter can create this pattern. No left-s ided abnormality seen. Partially filled urinary bladder shows no suspicious finding. Uterus and ov anita also without suspicious finding. No dilated bowel loops or bowel wall thickening. The appendix is normal. No free air, free fluid or p neumatosis. No other areas of edema or suspicious finding. No hernia, mass or bulky lymphadenopathy. No suspicious bony findings. IMPRESSION: Edema of the right kidney is seen with fullness of the right collecting system and trace amounts of stranding along the course of the right collecting system. No obstructing or nonobstructing calculi. Right-sided findings could represent pyelonephritis. This diagnosis is not definitive when there i s no IV contrast usage. A recently passed stone can create this pattern. Blood or inflammatory debris in the ureter would als o be a possible etiology. Full assessment is limited is the absence of IV contrast.
--- NOTE | 2022-02-21 08:20 | EDPHYS ---
Physician Documentation [facility] Name: Clementina Hartley Age: 36 yrs Sex: Female : 1985 Arrival Date: 02/21/2022 Time: 06:42 Bed 6 Private MD: LAWRENCE Physician Levi Weaver HPI: 02/21 06:54 This 36 yrs old Female presents to ER via Unassigned with complaints of abdominal pain, rn possible kidney stone. 06:54 The patient presents with abdominal pain right lower quadrant, in the left lower rn quadrant. Onset: The symptoms/episode began/occurred 10 day(s) ago. The symptoms do not radiate. Associated signs and symptoms: Pertinent positives: diarrhea, dysuria, fever, nausea, vomiting, Pertinent negatives: blood in stools. The symptoms are described as crampy, sharp. Modifying factors: The symptoms are alleviated by nothing, the symptoms are aggravated by nothing. Severity of pain: At its worst the pain was moderate in the emergency department the pain is unchanged. The patient has not experienced similar symptoms in the past. The patient has not recently seen a physician. Pt reports abd pain, bilateral lower abd, assoc with nausea/vomiting/diarrhea/back pain. Present for 10 days, not improving. + hx of kidney stones. + dysuria.. 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 - Social history:: Smoking status: Patient reports the use of cigarette tobacco products. - Family history:: not pertinent. - Hospitalizations: : No recent hospitalization is reported. ROS: 06:54 Constitutional: + subjective fever Eyes: Negative for injury, pain, redness, and internal sales, ENT: Negative for injury, pain, and discharge, Neck: Negative for injury, pain, and swelling, Cardiovascular: Negative for chest pain, palpitations, and edema, Respiratory: Negative for shortness of breath, cough, wheezing, and pleuritic chest pain, Abdomen/GI: + abd pain, + nausea/vomiting/diarrhea Back: + lower back pain : + dysuria MS/Extremity: Negative for injury and deformity, Skin: Negative for injury, rash, and discoloration, Neuro: Negative for headache, weakness, numbness, tingling, and seizure. Exam: 06:54 Constitutional: This is a well developed, well nourished patient who is awake, alert, dry kiln burner to room without difficulty or assistance, appears uncomfortable Head/Face: Normocephalic, atraumatic. Eyes: Periorbital areas with no swelling, redness, or edema. Cardiovascular: Tachycardic, regular. No pulse deficits. Respiratory: Lungs have equal breath sounds bilaterally, clear to auscultation and percussion. No rales, rhonchi or wheezes noted. No increased work of breathing, no retractions or nasal flaring. Abdomen/GI: soft, + tender RLQ and LLQ, no rebound Skin: Warm, dry MS/ Extremity: Pulses equal, no cyanosis. Neuro: Awake and alert, GCS 15 Vital Signs: 06:55 BP 164 / 103; Pulse 116; Resp 18 S; Temp 99.2(O); Pulse Ox 99% on R/A; Weight 122.47 kg as6 (R); Height 5 ft. 6 in. (167.64 cm) (R); Pain 9/10; 07:53 BP 126 / 92; Pulse 116; Resp 18; Pulse Ox 99% ; bp 11:20 BP 125 / 87; Pulse 102; Resp 18 S; Pulse Ox 99% on R/A; jd3 06:55 Body Mass Index 43.58 (122.47 kg, 167.64 cm) as6 MDM: 06:44 Patient medically screened. rn 07:37 Differential diagnosis: diverticulitis, gastritis, Hepatitis, Mesenteric ischemia or desi infarction, myocardia ischemia or infarction, non-specific abd pain, pancreatitis, Ureterolithiasis, urinary tract infection. Data reviewed: vital signs, nurses notes, lab test result(s), radiologic studies, plain films. Data interpreted: Pulse oximetry: on room air is 99 %. Test interpretation: by ED physician or midlevel provider:. Counseling: I had a detailed discussion with the patient and/or guardian regarding: the historical points, exam findings, and any diagnostic results supporting the discharge/admit diagnosis, lab results, radiology results. 02/21 06:54 Order name: CBC with Diff; Complete Time: 07:33 rn 02/21 06:54 Order name: CMP; Complete Time: 08:10 rn 02/21 06:54 Order name: Lipase; Complete Time: 08:10 rn 02/21 06:54 Order name: Urine Microscopic Only; Complete Time: 08:10 rn 02/21 06:54 Order name: SARS-COV-2 RT PCR (Document "Date of Onset" if Symptomatic) 02/21 06:54 Order name: Flu rn 02/21 06:59 Order name: Blood Culture Adult (2) rn 02/21 07:22 Order name: Urine Dipstick-Ancillary; Complete Time: 07:33 EDMS 02/21 07:23 Order name: Urine --Ancillary (enter results) 02/21 07:37 Order name: CT Abd/Pelvis - Without Contrast; Complete Time: 08:10 desi 02/21 07:55 Order name: Urine Culture EDRI 02/21 08:44 Order name: Glucose, Ancillary Testing EDRI 02/21 12:23 Order name: Glucose, Ancillary Testing EDRI 02/21 06:54 Order name: IV Saline Lock; Complete Time: 06:55 rn 02/21 06:54 Order name: Labs collected and sent; Complete Time: 07:04 rn 02/21 06:54 Order name: Urine Dipstick-Ancillary (obtain specimen); Complete Time: 07:16 rn 02/21 06:54 Order name: Urine Test (obtain specimen); Complete Time: 07:16 rn 02/21 08:26 Order name: Blood Glucose Level; Complete Time: 08:31 desi Administered Medications: 07:05 Drug: NS 0.9% 1000 ml Route: IV; Rate: 1 bolus; Site: right antecubital; kd3 08:43 Follow up: IV Status: Completed infusion; IV Intake: 1000ml bp 07:05 Drug: Zofran (Ondansetron) 4 mg Route: IVP; Site: right antecubital; kd3 07:06 Follow up: Response: Nausea is decreased bp 07:05 Drug: morphine 4 mg Route: IVP; Infused Over: 4 mins; Site: right antecubital; kd3 07:06 Follow up: Response: Pain is decreased bp 07:53 Drug: levofloxacin 750 mg Volume: 150 ml; Route: IVPB; Infused Over: 90 mins; Site: j right antecubital; 09:00 Follow up: Response: No adverse reaction; IV Status: Completed infusion jd3 07:54 Drug: NS 0.9% 500 ml Route: IV; Rate: bolus; Site: right antecubital; jd3 08:43 Follow up: IV Status: Completed infusion; IV Intake: 500ml bp 07:54 Drug: morphine 2 mg Route: IV; Rate: per protocol; Site: right antecubital; jd3 08:50 Follow up: Response: No adverse reaction; RASS: Alert and Calm (0); IV Status: jd3 Completed infusion 07:54 Drug: Zofran (Ondansetron) 4 mg Route: IVP; Site: right antecubital; jd3 08:42 Follow up: Response: No adverse reaction bp 08:23 Not Given (Duplicate Order): NS 0.9% 1000 ml IV at 125 ml/hr continuous desi 08:31 Drug: Potassium Effervescent Tablet 25 mEq Route: PO; jd3 08:42 Follow up: Response: No adverse reaction bp 08:32 Drug: NS 0.9% with KCl 20 mEq/L 1000 ml Route: IV; Rate: 125 ml/hr; Site: right [facility] antecubital; 12:57 Follow up: Response: No adverse reaction; IV Status: Infusion continued upon admission jd3 08:40 Drug: Insulin Regular Human 8 units {Co-Signature: jisaac (Winston Munoz RN).} Route: bp IVP; Site: right antecubital; 09:40 Follow up: Response: No adverse reaction jd3 08:40 Drug: Semglee 100 unit/mL 30 units Route: Sub-Q; Site: right upper arm; bp 09:40 Follow up: Response: No adverse reaction jd3 Disposition Summary: 02/21/22 08:19 Hospitalization Ordered Hospitalization Status: Inpatient Admission desi Provider: Ike Avila cha Location: Telemetry/MedSurg (Inpatient) desi Condition: Stable desi Problem: new desi Symptoms: have improved desi Bed/Room Type: Standard desi Room Assignment: 213(02/21/22 11:59) bd Diagnosis - Pyelonephritis acute desi - Type 2 diabetes mellitus with hyperglycemia - poorly controlled desi - Elevated white blood cell count desi - Abdominal tenderness desi - Hypokalemia desi Forms: - Medication Reconciliation Form desi - SBAR form desi Signatures: Dispatcher [employer] EDMS MichaelTamika ha Marysol Beck RN Levi Motley MD MD cha Nieto, Roman, MD MD rn Davies, HERMELINDO Montero RN jd3 Pietro Saunders, RN Mat Tejada, HERMELINDO CASAREZ as6 Eileen Hay RN HERMELINDO kd3 Winston Munoz RN jd3 Corrections: (The following items were deleted from the chart) 06:58 06:57 PSHx: Appendectomy; as6 as6 07:00 06:54 Constitutional: This is a well developed, well nourished patient who is awake, rn alert, ambulatory to room without difficulty or assistance, appears uncomfortable Head/Face: Normocephalic, atraumatic. Eyes: Periorbital areas with no swelling, redness, or edema. Cardiovascular: Tachycardic, regular. No pulse deficits. Respiratory: Lungs have equal breath sounds bilaterally, clear to auscultation and percussion. No rales, rhonchi or wheezes noted. No increased work of breathing, no retractions or nasal flaring. Abdomen/GI: Soft, non-tender, with normal bowel sounds. No distension or tympany. No guarding or rebound. No evidence of tenderness throughout. rn 07:47 06:55 Abdomen Pelvis W Con+CT.RAD.BRZ ordered. EDMS EDMS 11:57 08:19 [facility] 11:59 11:57 230 dw bd
--- NOTE | 2022-02-21 08:20 | ER ---
Nurse's Notes [facility] Name: Clementina Hartley Age: 36 yrs Sex: Female : 1985 Arrival Date: 02/21/2022 Time: 06:42 Bed 6 Private MD: Diagnosis: Pyelonephritis acute;Type 2 diabetes mellitus with hyperglycemia-poorly controlled;Elevated white blood cell count;Abdominal tenderness;Hypokalemia Presentation: 02/21 06:55 Chief complaint: Patient states: "For the past 10 days I have been throwing up, having as6 diarrhea, right side pain that starts in my back and goes to my lower abdomen". Coronavirus screen: At this time, the client does not indicate any symptoms associated with coronavirus-19. Ebola Screen: No symptoms or risks identified at this time. Initial Sepsis Screen: Does the patient meet any 2 criteria? No. Patient's initial sepsis screen is negative. Does the patient have a suspected source of infection? No. Patient's initial sepsis screen is negative. Risk Assessment: Do you want to hurt yourself or someone else? Patient reports no desire to harm self or others. Onset of symptoms was February 11, 2022. 06:55 Method Of Arrival: Ambulatory as6 06:55 Acuity: ELI 3 as6 Triage Assessment: 07:00 General: Appears distressed, uncomfortable, Behavior is cooperative, appropriate for bp age, anxious. Pain: Complains of pain in right lower quadrant and right flank. EENT: No deficits noted. Neuro: No deficits noted. Cardiovascular: No deficits noted. Respiratory: No deficits noted. GI: No signs and/or symptoms were reported involving the gastrointestinal system. : No signs and/or symptoms were reported regarding the genitourinary system. Derm: No deficits noted. Musculoskeletal: No deficits noted. 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 - Social history:: Smoking status: Patient reports the use of cigarette tobacco products. - Family history:: not pertinent. - Hospitalizations: : No recent hospitalization is reported. Screenin:59 Abuse screen: Denies threats or abuse. Denies injuries from another. Nutritional as6 screening: No deficits noted. Tuberculosis screening: No symptoms or risk factors identified. Fall Risk None identified. Assessment: 06:58 General: Appears uncomfortable, Behavior is calm, cooperative. Pain: Complains of pain as6 in right flank Pain radiates to right lower quadrant. Neuro: Poole Agitation-Sedation Scale (RASS): 0 - Alert and Calm Level of Consciousness is awake, alert, obeys commands, Oriented to person, place, time, situation. Cardiovascular: JVD is absent Patient's skin is warm and dry. Respiratory: Respiratory effort is even, unlabored, Respiratory pattern is regular, symmetrical. GI: Reports lower abdominal pain, diarrhea, nausea, vomiting. 07:00 Reassessment: RECD REPORT FROM MAT CASAREZ. 36YO WF P/W R FLANK PAIN. bp 07:15 Reassessment: pt refusing COVID and flu swab at this time. jd3 07:16 General: Appears in no apparent distress. uncomfortable, Behavior is calm, cooperative, jd3 appropriate for age. Pain: Complains of pain in abdomen and back and right flank. Neuro: Poole Agitation-Sedation Scale (RASS): 0 - Alert and Calm Level of Consciousness is awake, alert, obeys commands, Oriented to person, place, time, situation. Cardiovascular: Patient's skin is warm and dry. Respiratory: Airway is patent Respiratory effort is even, unlabored, Respiratory pattern is regular, symmetrical, Denies cough, shortness of breath. GI: Abdomen is non-distended, Reports lower abdominal pain, diarrhea, nausea. : No signs and/or symptoms were reported regarding the genitourinary system. EENT: No signs and/or symptoms were reported regarding the EENT system. Derm: Skin is intact, Skin is dry, Skin is normal, Skin temperature is warm. Musculoskeletal: Circulation, motion, and sensation intact. Range of motion: intact in all extremities. 08:32 Reassessment: Patient appears in no apparent distress at this time. Patient and/or jd3 family updated on plan of care and expected duration. Pain level reassessed. Patient is alert, oriented x 3, equal unlabored respirations, skin warm/dry/pink. provider at bedside discussing plan of care with pt. pt agreeing to COVID and flu swab at this time. 11:20 Reassessment: Patient appears in no apparent distress at this time. Patient and/or jd3 family updated on plan of care and expected duration. Pain level reassessed. Patient is alert, oriented x 3, equal unlabored respirations, skin warm/dry/pink. awaiting admission. 12:32 Reassessment: Patient appears in no apparent distress at this time. Patient and/or jd3 family updated on plan of care and expected duration. Pain level reassessed. Patient is alert, oriented x 3, equal unlabored respirations, skin warm/dry/pink. report given to Michell CASAREZ. Vital Signs: 06:55 BP 164 / 103; Pulse 116; Resp 18 S; Temp 99.2(O); Pulse Ox 99% on R/A; Weight 122.47 kg as6 (R); Height 5 ft. 6 in. (167.64 cm) (R); Pain 9/10; 07:53 BP 126 / 92; Pulse 116; Resp 18; Pulse Ox 99% ; bp 11:20 BP 125 / 87; Pulse 102; Resp 18 S; Pulse Ox 99% on R/A; jd3 06:55 Body Mass Index 43.58 (122.47 kg, 167.64 cm) as6 ED Course: 06:42 Patient arrived in ED. as 06:46 Howie James MD is Attending Physician. rn 06:54 Mat Thompson, RN is Primary Nurse. as6 06:56 Inserted saline lock: 20 gauge in right antecubital area, using aseptic technique. kd3 Blood collected. 06:57 Triage completed. as6 06:58 Arm band placed on. as6 06:59 Bed in low position. Call light in reach. Side rails up X 1. Pulse ox on. NIBP on. as6 07:20 Attending Physician role handed off by Howie James MD desi 07:20 Levi Weaver MD is Attending Physician. desi 07:36 Primary Nurse role handed off by Mat Thompson, RN jd3 07:36 Winston Munoz, HERMELINDO is Primary Nurse. jd3 07:50 CT Abd/Pelvis - Without Contrast In Process Unspecified. EDMS 08:18 Ike Avila is Hospitalizing Provider. desi 08:34 Flu Sent. mb7 08:34 SARS-COV-2 RT PCR (Document "Date of Onset" if Symptomatic) Sent. mb7 12:32 No provider procedures requiring assistance completed. Patient admitted, IV remains in jd3 place. Administered Medications: 07:05 Drug: NS 0.9% 1000 ml Route: IV; Rate: 1 bolus; Site: right antecubital; kd3 08:43 Follow up: IV Status: Completed infusion; IV Intake: 1000ml bp 07:05 Drug: Zofran (Ondansetron) 4 mg Route: IVP; Site: right antecubital; kd3 07:06 Follow up: Response: Nausea is decreased bp 07:05 Drug: morphine 4 mg Route: IVP; Infused Over: 4 mins; Site: right antecubital; kd3 07:06 Follow up: Response: Pain is decreased bp 07:53 Drug: levofloxacin 750 mg Volume: 150 ml; Route: IVPB; Infused Over: 90 mins; Site: jd3 right antecubital; 09:00 Follow up: Response: No adverse reaction; IV Status: Completed infusion jd3 07:54 Drug: NS 0.9% 500 ml Route: IV; Rate: bolus; Site: right antecubital; jd3 08:43 Follow up: IV Status: Completed infusion; IV Intake: 500ml bp 07:54 Drug: morphine 2 mg Route: IV; Rate: per protocol; Site: right antecubital; jd3 08:50 Follow up: Response: No adverse reaction; RASS: Alert and Calm (0); IV Status: jd3 Completed infusion 07:54 Drug: Zofran (Ondansetron) 4 mg Route: IVP; Site: right antecubital; jd3 08:42 Follow up: Response: No adverse reaction bp 08:23 Not Given (Duplicate Order): NS 0.9% 1000 ml IV at 125 ml/hr continuous desi 08:31 Drug: Potassium Effervescent Tablet 25 mEq Route: PO; jd3 08:42 Follow up: Response: No adverse reaction bp 08:32 Drug: NS 0.9% with KCl 20 mEq/L 1000 ml Route: IV; Rate: 125 ml/hr; Site: right jd3 antecubital; 12:57 Follow up: Response: No adverse reaction; IV Status: Infusion continued upon admission jd3 08:40 Drug: Insulin Regular Human 8 units {Co-Signature: jd3 (Winston Munoz RN).} Route: bp IVP; Site: right antecubital; 09:40 Follow up: Response: No adverse reaction jd3 08:40 Drug: Semglee 100 unit/mL 30 units Route: Sub-Q; Site: right upper arm; bp 09:40 Follow up: Response: No adverse reaction jd3 Medication: 07:00 VIS not applicable for this client. bp Intake: 08:43 IV: 500ml; Total: 500ml. bp 08:43 IV: 1000ml; Total: 1500ml. bp Outcome: 08:19 Decision to Hospitalize by Provider. desi 12:32 Condition: stable jd3 12:32 Instructed on the need for admit. 12:51 Patient left the ED. iw 12:56 Admitted to Med/surg accompanied by tech, via wheelchair, room 213, with chart, Report jd3 called to Michell CASAREZ Signatures: Dispatcher [employer] EDMS Levi Weaver MD MD cha Martinez, Amelia as Williams, Irene, RN Howie Baker MD MD rn Davies, Jonathon, RN RN jPietro Sifuentes RN RN bp Slawson, Ashby, RN RN as6 Eileen Hay RN RN kd3 Heather Crouch [facility] Winston Munoz RN jd3 Corrections: (The following items were deleted from the chart) 06:58 06:57 PSHx: Appendectomy; as6 as6
[2022-02-21] MEDS ORDERED: POTASSIUM 25 MEQ EFFERV TAB ONE (08:35)
[2022-02-21] MEDS ORDERED: NS KCL 20MEQ 1,000 ML IV ONE (08:35)
[2022-02-21] MEDS ORDERED: INSULIN GLARGINE 100 UNIT/ML SQ ONE (08:43)
[2022-02-21] MEDS ORDERED: INSULIN -REGULAR HUMAN 50 UNIT/0.5 ML ML ONE (08:44)
[2022-02-21] MEDS: INSULIN -REGULAR HUMAN 50 UNIT/0.5 ML ML SQ SCH ×3 (11:50→20:45)
[2022-02-21] MEDS ORDERED: ACETAMINOPHEN 500 MG TAB PO PRN (11:50)
[2022-02-21] MEDS ORDERED: MORPHINE 2 MG/ML SYR IV PRN (11:50)
[2022-02-21] MEDS ORDERED: ONDANSETRON 4 MG/2 ML VIAL IV PRN (11:50)
[2022-02-21] MEDS: Levofloxacin 750mg IV 750 MG/150 ML BAG IV SCH (11:53)
--- NOTE | 2022-02-21 12:12 | P.HP ---
Certification for Inpatient Patient admitted to: Inpatient With expected LOS: >2 Midnights Practitioner: I am a practitioner with admitting privileges, knowledge of patient current condition, hospital course, and medical plan of care. Services: Services provided to patient in accordance with Admission requirements found in Title 42 Section 412.3 of the Code of Federal Regulations Patient History Date of Service: 02/21/22 Reason for admission: Right flank pain, fever History of Present Illness: 56-year-old woman with a history of diabetes mellitus on oral hypoglycemics presented to the emergency department due to fever chills, bilateral flank pain of about 10 days duration. Patient described pain in the bilateral flanks radiating to the groin, associated with dysuria and increased urinary frequency, nausea and vomiting and general malaise. She states that she has a history of kidney stones initially thought her symptoms were due to kidney stones and waited it out. She developed nausea and vomiting and presented to the ED for worsening symptoms. UA in the ED suggested presence of UTI. CT abdomen suggested right kidney edema with some stranding in the collecting system suggesting acute pyelonephritis. Patient reports allergy to penicillin and iodine contrast with anaphylactic shock. She she meets sepsis criteria with leukocytosis and tachycardia. Patient given IV fluid and a dose of IV Levaquin. She is admitted for further management. Allergies iodine [Iodine] Allergy (Mild, Verified 11/15/11 14:50) Hives latex [Latex] Allergy (Mild, Verified 11/15/11 14:50) Hives Penicillins Allergy (Mild, Verified 11/15/11 14:50) Hives/Rash Latex, Natural Rubber Allergy (Unverified 09/07/14 23:18) Unknown Iodine-Iodi Allergy (Uncoded 03/27/15 01:37) Unknown Iodine-Iodin Allergy (Uncoded 08/05/15 18:04) Unknown IODINE; IODINE CONTAINING Allergy (Uncoded 09/07/14 23:18) Unknown seafood Allergy (Uncoded 09/07/14 23:18) Unknown Home Medications: Lisinopril [Zestril] 40 mg PO DAILY 08/17/20 Metformin HCl [Glucophage] 1,000 mg PO BID 08/17/20 Metoprolol Succinate [Toprol Xl*] 25 mg PO DAILY 08/17/20 glipiZIDE [Glipizide] 10 mg PO DAILY 08/17/20 - Past Medical/Surgical History -: Hypertension -: Diabetes mellitus type 2 -: Hyperlipidemia -: Cholecystectomy Psychosocial/ Personal History: Patient currently works at [employer] and lives with her significant other - Family History Mother -: Hypertension Father -: Heart disease - Social History Alcohol use: Yes CD- Drugs: No Caffeine use: Yes Review of Systems Other: Except as documented, all other systems reviewed and negative. Physical Examination - Physical Exam General: Alert, Oriented x3, Mild distress (Due to pain) HEENT: PERRLA, Mucous membr. moist/pink, EOMI, Sclerae nonicteric Neck: Supple, JVD not distended Respiratory: Clear to auscultation bilaterally, Normal air movement Cardiovascular: No edema, Normal S1 S2, No murmurs, Other (Tachycardia) Capillary refill: <2 Seconds Gastrointestinal: Normal bowel sounds, Soft and benign, Non-distended, Tenderness (Right flank) Musculoskeletal: No swelling, No tenderness Integumentary: No rashes, No erythema Neurological: Normal speech, Normal strength at 5/5 x4 extr, Cranial nerves 3-12 intact Lymphatics: No axilla or inguinal lymphadenopathy - Studies Laboratory Data (last 24 hrs) 02/21/22 07:07: Sodium 128 L, Potassium 3.0 L, BUN 12, Creatinine 1.14, Glucose 383 H, Total Bilirubin 0.9, AST 12 L, ALT 18, Alkaline Phosphatase 136 H, Lipase 76 02/21/22 07:07: WBC 14.1 H, Hgb 13.3, Hct 39.7, Plt Count 338 Microbiology Data (last 24 hrs): 02/21/22 06:54 Nasopharnyx Influenza Type A Antigen Screen - Final 02/21/22 06:54 Nasopharnyx Influenza Type B Antigen Screen - Final Assessment and Plan - Problems (Diagnosis) (1) Acute pyelonephritis Current Visit: Yes Status: Acute (2) Sepsis Current Visit: Yes Status: Acute (3) Type 2 diabetes mellitus with hyperglycemia Current Visit: Yes Status: Acute (4) Hyponatremia Current Visit: Yes Status: Acute - Plan Admit to the medical floor. Continue sepsis protocol initiated in the ED. Check lactate level Urine culture and blood cultures obtained in the ED. We will continue with Levaquin started in the ED and follow cultures. Supportive measures with IV hydration, antiemetics and pain management as needed. Diet as tolerated. Insulin sliding scale for glucose management. Check hemoglobin A1c Patient with significant hyperglycemia. She may require long-acting insulin. Hyponatremia is spurious and likely secondary to hyperglycemia. Monitor CBC and BMP. Replace electrolytes as needed. - Advance Directives Does patient have a Living Will: No Does patient have a Durable POA for Healthcare: No
[2022-02-21] MEDS: NA CHLORIDE 0.9% 1,000 ML IV SCH ×2 (13:14→22:40)
[2022-02-21] MEDS: POTASSIUM CL SA 10 MEQ TAB PO SCH ×2 (13:14→17:46)
[2022-02-21] MEDS: HYDROCODONE/APAP 5/325 MG TAB PO PRN ×2 (13:15→20:43)
[2022-02-21 15:36] VITALS: BMI 43.5
[2022-02-22 05:49] LABS: Absolute Lymphocytes (CBC) 2.2 K/uL (0.7-4.9); Lymphocytes % 18.6 % (15.3-44.8); MCV 84.7 fL (80-100); MPV 8.4 fL (7.6-11.3); RBC Red Blood Cell Count 4.13 M/uL (3.86-4.86)
[2022-02-22 06:02] LABS: Magnesium 1.9 mg/dL (1.8-2.4); Phosphorus 2.8 mg/dL (2.5-4.9); Potassium 3.8 mmol/L (3.5-5.1)
--- NOTE | 2022-02-22 06:23 | P.PN ---
Date of Service: 02/22/22 Subjective: improving R flank pain / CVA tenderness persists but improved ROS: 10 point ROS as noted above, otherwise negative Physical exam GEN: Alert, oriented, NAD HEENT: Normal conjunctiva, sclera anicteric CV: Regular rate and rhythm, no edema Pulm: Nonlabored respirations on room air ABD: Soft, nondistended, R flank tenderness / +CVA tenderness Integumentary: No rashes Neuro: Normal speech, normal affect Problem List Sepsis secondary to acute pyelonephritis Diabetes mellitus type 2, with hyperglycemia, [id number] Pseudohyponatremia CT: R pyelonephritis vs passed stone urine culture: GNR pt reports h/o kidney stones in past continue levaquin diet as tolerated, IVF for now pain medication as needed A1C: 9.6; pt has been out of medications for a while, previously on metformin/glipizide; sliding scale for now; may need to start long acting insulin PseudoHyponatremia - in setting of hyperglycemia, improved VTE: lovenox Code: full Dispo: home, ~2 days Time Spent Managing Pts Care (In Minutes): 35
[2022-02-22] MEDS: ENOXAPARIN 40 MG/0.4 ML SQ SCH (08:28)
[2022-02-22] MEDS: HYDROCODONE/APAP 5/325 MG TAB PO PRN ×2 (08:28→17:11)
[2022-02-22] MEDS: Levofloxacin 750mg IV 750 MG/150 ML BAG IV SCH (08:28)
[2022-02-22] MEDS: NA CHLORIDE 0.9% 1,000 ML IV SCH ×2 (08:29→16:43)
[2022-02-22] MEDS: INSULIN -REGULAR HUMAN 50 UNIT/0.5 ML ML SQ SCH ×4 (08:29→21:14)
[2022-02-22] MEDS ORDERED: POTASSIUM CL SA 10 MEQ TAB PO ONE (09:00)
[2022-02-23] MEDS: HYDROCODONE/APAP 5/325 MG TAB PO PRN ×2 (04:53→11:41)
[2022-02-23 05:52] LABS: Hematocrit 32.1 % (36.0-45.0); MCV 84.2 fL (80-100); MPV 7.6 fL (7.6-11.3); RBC Red Blood Cell Count 3.81 M/uL (3.86-4.86)
[2022-02-23 06:04] LABS: Potassium 3.6 mmol/L (3.5-5.1)
--- NOTE | 2022-02-23 06:22 | P.PN ---
Date of Service: 02/23/22 Subjective: ROS: 10 point ROS as noted above, otherwise negative Physical exam GEN: Alert, oriented, NAD HEENT: Normal conjunctiva, sclera anicteric CV: Regular rate and rhythm, no edema Pulm: Nonlabored respirations on room air ABD: Soft, nondistended, R flank tenderness / +CVA tenderness Integumentary: No rashes Neuro: Normal speech, normal affect Problem List Sepsis secondary to acute pyelonephritis Diabetes mellitus type 2, with hyperglycemia, [id number] Pseudohyponatremia CT: R pyelonephritis vs passed stone urine culture: GNR pt reports h/o kidney stones in past continue levaquin diet as tolerated, IVF for now pain medication as needed A1C: 9.6; pt has been out of medications for a while, previously on metformin/glipizide; sliding scale for now; may need to start long acting insulin PseudoHyponatremia - in setting of hyperglycemia, improved VTE: lovenox Code: full Dispo: home, ~2 days Time Spent Managing Pts Care (In Minutes): 35
[2022-02-23 07:32] LABS: Magnesium 1.5 mg/dL (1.8-2.4); Phosphorus 3.1 mg/dL (2.5-4.9)
[2022-02-23] MEDS ORDERED: POTASSIUM CL SA 10 MEQ TAB PO ONE (09:00)
[2022-02-23] MEDS: Levofloxacin 750mg IV 750 MG/150 ML BAG IV SCH (09:34)
[2022-02-23] MEDS: INSULIN -REGULAR HUMAN 50 UNIT/0.5 ML ML SQ SCH ×2 (09:35→11:30)
[2022-02-23] MEDS: ENOXAPARIN 40 MG/0.4 ML SQ SCH (09:35)
[2022-02-23] MEDS: NA CHLORIDE 0.9% 1,000 ML IV SCH (09:37)
--- NOTE | 2022-02-23 12:13 | P.DS ---
Admission Date: 02/21/22 Discharge Date: 02/23/22 Disposition: ROUTINE DISCHARGE Discharge Condition: GOOD Reason for Admission: Right flank pain, fever Brief History of Present Illness: 36yo F, PMH: NIDDM2 PResented to ED with fever, chills, bilateral flank pain for ~10 days. Described pain radiation to groin, associated with dysuria and increased urinary frequency, nausea/vomiting, and general malaise. Reports h/o kidney stones, which she initially thought she was dealing with. In the ED, she was diagnosed with sepsis secondary to right pyelonephritis by UA, CT, and exam. Hospital Course: Problem List Sepsis secondary to acute pyelonephritis Diabetes mellitus type 2, with hyperglycemia, [id number] Pseudohyponatremia Patient was found to have acute pyelonephritis. She improved with IV antibiotics. Urine culture grew pansensitive e.coli. Negative blood cultures. She remained afebrile and leukocytosis improved. She is deemed stable for discharge home, to continue with 7 more days of antibiotics (levaquin) for a total of 10 day course. Follow up with PCP within 1 week. She was noted to be hyperglycemic in the low-mid 200s, with A1c: 9.6 She will restart on metformin twice daily, adjust diet, and follow up with PCP. Discussed she may need to start on insulin soon if glucose levels do not improve. Vital Signs/Physical Exam: Temp Pulse Resp BP Pulse Ox 97.3 F 86 17 148/94 H 96 02/23/22 08:00 02/23/22 08:00 02/23/22 11:41 02/23/22 08:00 02/23/22 11:41 General: Alert, In no apparent distress, Oriented x3 HEENT: Mucous membr. moist/pink, Sclerae nonicteric Respiratory: Clear to auscultation bilaterally, Normal air movement Cardiovascular: No edema, Regular rate/rhythm Gastrointestinal: Soft and benign, Non-distended, No tenderness Musculoskeletal: No contractures, No tenderness Integumentary: No significant lesion Neurological: Normal speech, Normal affect Laboratory Data at Discharge: WBC 11.0 K/uL (4.3-10.9) H 02/23/22 05:43 Hgb 10.9 g/dL (12.0-15.0) L 02/23/22 05:43 Hct 32.1 % (36.0-45.0) L 02/23/22 05:43 Plt Count 409 K/uL (152-406) H 02/23/22 05:43 Sodium 137 mmol/L (136-145) 02/23/22 05:43 Potassium 3.6 mmol/L (3.5-5.1) 02/23/22 05:43 BUN 5 mg/dL (7-18) L 02/23/22 05:43 Creatinine 0.69 mg/dL (0.55-1.3) 02/23/22 05:43 Glucose 229 mg/dL (74-106) H 02/23/22 05:43 Phosphorus 3.1 mg/dL (2.5-4.9) 02/23/22 05:43 Magnesium 1.5 mg/dL (1.8-2.4) L 02/23/22 05:43 Total Bilirubin 0.9 mg/dL (0.2-1.0) 02/21/22 07:07 AST 12 U/L (15-37) L 02/21/22 07:07 ALT 18 U/L (12-78) 02/21/22 07:07 Alkaline Phosphatase 136 U/L (45-117) H 02/21/22 07:07 Lipase 76 U/L (73-393) 02/21/22 07:07 Home Medications: Codeine/APAP [Tylenol W/Codeine #3 tab] 1 tab PO Q8H PRN #10 tab 02/23/22 Metformin HCl 1,000 mg PO BID 30 Days #60 tablet 02/23/22 levoFLOXacin [Levaquin] 750 mg PO DAILY 7 Days #7 tab 02/23/22 New Medications: levoFLOXacin [Levaquin] 750 mg PO DAILY 7 Days #7 tab Metformin HCl 1,000 mg PO BID 30 Days #60 tablet Codeine/APAP [Tylenol W/Codeine #3 tab] 1 tab PO Q8H PRN #10 tab PRN Reason: Pain Diet: ADA Activity: Ad caio Followup: NONE,NONE [Primary Care Provider] - 1 Week (Please call to schedule an appointment. ) Time spent managing pt's care (in minutes): 40
[2022-02-23 12:39] VITALS: BP 148/96; TEMP 97.7
[2022-02-23 13:51] VITALS: O2SAT 98
== END 2022-02-23 13:20 | disposition home or self-care (01) | DRG 872 ==
LOC: ER 06:41 → ERHOLD 11:07 → 2ND 12:41
PROVIDERS: ADMIT Internal Medicine; ATTEND Internal Medicine
DX: A41.9 Sepsis, unspecified organism (principal); N10 Acute pyelonephritis; E11.65 Type 2 diabetes mellitus with hyperglycemia; B96.20 Unspecified Escherichia coli [E. coli] as the cause of diseases classified elsewhere; I10 Essential (primary) hypertension; E78.5 Hyperlipidemia, unspecified; Z88.0 Allergy status to penicillin; Z91.013 Allergy to seafood; Z91.040 Latex allergy status; Z20.822 Contact with and (suspected) exposure to COVID-19
CPT/HCPCS: 36415; 74176; 80048; 80053; 81003; 81015; 81025; 82947; 83036; 83605; 83690; 83735; 84100; 85025; 85027; 87040; 87077; 87086; 87088; 87186; 87804; 96361; 96365; 96368; 96372; 96375; 99285; J1650; J1815; J2270; J2405; J3480; J7030; J7040; U0003